=== PATIENT | female | born 1990 | race American Indian/Alaskan Native ===

== ENCOUNTER 2022-06-02 15:56 | Outpatient (REF) | payer OTHER, SELFPAY ==
[2022-06-03 03:26] LABS: CT PCR NOT DETECTED (Not Detect.); NG PCR NOT DETECTED (Not Detect.)
[2022-06-13 09:52] LABS: HPV 16 RNA NOT DETECTED (NOT DETECTED); HPV mRNA E6/E7 rflx Detected (Not Detected)
== END 2022-06-02 15:57 | disposition home or self-care (01) ==
LOC: HO.LAB 15:56
PROVIDERS: Visit Provider Advanced Practice Midwife
DX: Z01.419 Encounter for gynecological examination (general) (routine) without abnormal findings (principal); Z11.3 Encounter for screening for infections with a predominantly sexual mode of transmission; Z11.51 Encounter for screening for human papillomavirus (HPV)
CPT/HCPCS: 87491; 87591; 87624; 87625; 88142

== ENCOUNTER 2022-06-22 10:38 | Outpatient (REF) | payer OTHER, SELFPAY ==
[2022-06-22 13:51] LABS: MANUAL DIFF FLAG NO
[2022-06-22 13:55] LABS: Basophils Absolute Auto 0.1 X10*3/uL (0.0-0.2); Basophils Percent Auto 0.7 % (0-2); Eosinophils Absolute Auto 0.1 X10*3/uL (0.0-0.4); Eosinophils Percent Auto 1.3 % (0-4); Hematocrit 41.7 % (37.0-47.0); Hemoglobin 13.8 g/dl (12.0-16.0); Imm Gran Abs Auto 0.05 X10*3/uL (0.00-0.03); Imm Gran Pct Auto 0.6 % (0.0-0.4); Lymphocytes Absolute Auto 3.4 X10*3/uL (1.2-4.9); Lymphocytes Percent Auto 38.2 % (20-40); Mean Corpuscular HGB Conc 33.1 g/dl (31.0-35.0); Mean Corpuscular Hemoglobin 29.1 pg (27.0-33.0); Mean Corpuscular Volume 87.8 fL (80.0-98.0); Mean Platelet Volume 10.8 fL (9.4-12.3); Monocytes Absolute Auto 0.7 X10*3/uL (0.1-1.2); Monocytes Percent Auto 7.6 % (2-11); Neutrophils Absolute Auto 4.5 x10*3/uL (2.0-8.3); Neutrophils Percent Auto 51.6 % (45-73); Platelet Count 360 X10*3/uL (160-400); Red Blood Count 4.75 X10*6/uL (4.20-5.50); Red Cell Distribution Width 13.2 % (11.0-16.0); White Blood Count 8.8 X10*3/uL (4.8-10.8)
[2022-06-22 14:09] LABS: Alanine Aminotransferase 22 U/L (0-31); Albumin Level 4.3 g/dL (3.5-5.0); Alkaline Phosphatase 69 U/L (39-117); Amylase 45 U/L (28-100); Anion Gap 15 (12-20); Aspartate Amino Transferase 17 U/L (5-31); Bilirubin Total 0.2 mg/dL (0.0-1.0); Blood Urea Nitrogen 11 mg/dL (9-16); Calcium 9.6 mg/dL (8.4-10.2); Carbon Dioxide 25 mmol/L (22-29); Chloride 105 mmol/L (96-108); Estimated Glomerular Filt Rate > 60; Glucose Random 92 mg/dL (60-115); Lipase 31 U/L (8-78); Potassium 4.4 mmol/L (3.3-5.1); Sodium 141 mmol/L (135-145); Total Protein 7.3 g/dL (6.5-8.0)
[2022-06-22 14:30] LABS: Thyroid Stimulating Hormone 2.29 uIU/mL (0.32-4.0)
== END 2022-06-22 10:39 | disposition home or self-care (01) ==
LOC: HO.WFDLDS 10:38
PROVIDERS: Visit Provider Physician Assistant
DX: K52.9 Noninfective gastroenteritis and colitis, unspecified (principal); K86.89 Other specified diseases of pancreas; K59.09 Other constipation
CPT/HCPCS: 36415; 80053; 82150; 83690; 84443; 85025

== ENCOUNTER 2022-07-05 08:17 | Outpatient (REF) | payer OTHER, SELFPAY ==
[2022-07-05 12:37] LABS: Influenza A PCR NEGATIVE (Negative); Influenza B PCR NEGATIVE (Negative); Resp Syncy Virus RNA Qual PCR NEGATIVE (Negative); SARS COV2 PCR INHOUSE POSITIVE (Negative)
== END 2022-07-05 08:18 | disposition home or self-care (01) ==
LOC: HO.LAB 08:17
PROVIDERS: Visit Provider Hospitalist
DX: Z20.822 Contact with and (suspected) exposure to COVID-19 (principal); R09.89 Other specified symptoms and signs involving the circulatory and respiratory systems
CPT/HCPCS: 0241U

== ENCOUNTER 2022-07-18 14:04 | Outpatient (REF) | payer OTHER, SELFPAY | END 2022-07-18 14:05 | disposition home or self-care (01) | LOC: HO.LNP 14:04 | PROVIDERS: PCP Physician Assistant; Visit Provider Obstetrics & Gynecology | DX: Z32.02 Encounter for pregnancy test, result negative (principal); R87.610 Atypical squamous cells of undetermined significance on cytologic smear of cervix (ASC-US); R87.810 Cervical high risk human papillomavirus (HPV) DNA test positive | CPT/HCPCS: 57454; 81025; 88305 ==

== ENCOUNTER 2022-07-25 15:22 | Outpatient (REF) | payer OTHER, SELFPAY ==
--- NOTE | ~2022-07-25 | US_ITS ---
EXAMINATION: US PELVIS CLINICAL INFORMATION: Pelvic and perineal pain. COMPARISON: None. TECHNIQUE: Ultrasound of the pelvis is performed using both transabdominal and transvaginal transducers along with Doppler. Transvaginal imaging is performed due to inadequate visualization transabdominally. FINDINGS: UTERUS: The uterus is anteverted, anteflexed and measures 7.6 cm in length, 3.2 cm in AP and 4.7 cm in transverse dimension. The double wall endometrial thickness is 0.5 cm. The uterus is smooth in contour and has normal myometrial echogenicity. There is a hypoechoic lesion in the anterior fundus measuring 2.3 x 1.8 x 2.1 cm mildly displacing the endometrium. There is a small amount of free fluid in the cervical canal ADNEXA: Both ovaries are visualized. There is normal color flow to the adnexa. There is no ovarian torsion. There is no pelvic ascites or fluid collection. Right ovary measures 3.2 x 2.4 x 2.5 cm and volume 9.8 mL. There is an anechoic cyst measuring 1.4 x 1.4 x 1.2 cm. Left ovary measures 1.3 x 1.0 x 1.10. Question hemorrhagic cyst versus endometrioma. US/US pelvic and transvaginal IMPRESSION: Small uterine fibroid measuring 2.3 cm. Right ovarian simple cyst. Left ovarian complex cyst, question hemorrhagic cyst versus endometrioma.
== END 2022-07-25 15:23 | disposition home or self-care (01) ==
LOC: HO.US 15:22
PROVIDERS: Visit Provider Advanced Practice Midwife
DX: R10.2 Pelvic and perineal pain (principal)
CPT/HCPCS: 76830; 76856

== ENCOUNTER 2022-07-29 11:27 | Outpatient (REF) | payer OTHER, SELFPAY ==
--- NOTE | 2022-07-29 16:46 | PFT_ITS ---
Forced vital capacity 101%, FEV1 97%, FEV1/FVC ratio is 80. EMP16-76 90% and MVV 99%. Post bronchodilator therapy, there is no change. Total lung capacity 93%. Residual volume 65%. Diffusion capacity 117% CONCLUSION: Normal pulmonary function test, and there is no evidence of obstructive or restrictive pulmonary disorder. MD MELISSA Perry/SHADY / [id number]
== END 2022-07-29 11:28 | disposition home or self-care (01) ==
LOC: HO.RESP 11:27
PROVIDERS: PCP Physician Assistant; Visit Provider Internal Medicine Pulmonary Disease
DX: U09.9 Post COVID-19 condition, unspecified (principal)
CPT/HCPCS: 94060; 94727; 94729

== ENCOUNTER 2022-08-09 11:10 | Outpatient (REF) | payer OTHER, SELFPAY ==
[2022-08-11 12:16] LABS: CA-125 24 U/mL (<35)
== END 2022-08-09 11:11 | disposition home or self-care (01) ==
LOC: HO.WFDLDS 11:10
PROVIDERS: Visit Provider Advanced Practice Midwife
DX: N83.299 Other ovarian cyst, unspecified side (principal)
CPT/HCPCS: 36415; 86304

== ENCOUNTER 2022-08-10 15:16 | Outpatient (REF) | payer OTHER, SELFPAY ==
[2022-08-12 14:17] LABS: H Pylori Breath Test Negative (Negative)
== END 2022-08-10 15:17 | disposition home or self-care (01) ==
LOC: HO.LNP 15:16
PROVIDERS: Visit Provider Physician Assistant
DX: A04.8 Other specified bacterial intestinal infections (principal)
CPT/HCPCS: 83013

== ENCOUNTER 2022-08-18 08:07 | Outpatient (REF) | payer OTHER, SELFPAY ==
[2022-08-25 20:41] LABS: Calprotectin, Fecal 6 mcg/g
== END 2022-08-18 08:08 | disposition home or self-care (01) ==
LOC: HO.WFDLNP 08:07
PROVIDERS: Visit Provider Internal Medicine
DX: R19.8 Other specified symptoms and signs involving the digestive system and abdomen (principal)
CPT/HCPCS: 83993

== ENCOUNTER 2022-08-24 07:41 | Outpatient (REF) | payer OTHER, SELFPAY ==
[2022-08-24 12:03] LABS: Hemoglobin 13.1 g/dl (12.0-16.0); Mean Corpuscular HGB Conc 32.8 g/dl (31.0-35.0); Mean Corpuscular Volume 88.5 fL (80.0-98.0); Mean Platelet Volume 10.5 fL (9.4-12.3); Platelet Count 358 X10*3/uL (160-400); Red Blood Count 4.52 X10*6/uL (4.20-5.50); Red Cell Distribution Width 13.5 % (11.0-16.0); White Blood Count 7.7 X10*3/uL (4.8-10.8)
[2022-08-24 12:29] LABS: Amylase 51 U/L (28-100)
[2022-08-24 12:39] LABS: Estimated Average Glucose 111 mg/dL; Hemoglobin A1c % 5.5 %
[2022-08-24 12:44] LABS: TSH reflex Free T4 1.48 uIU/mL (0.32-4.0)
[2022-08-24 12:45] LABS: Ferritin 66 ng/mL (10-122); Vitamin D 25-OH Total 24.3 ng/mL (>30)
[2022-08-24 12:53] LABS: Alanine Aminotransferase 23 U/L (0-31); Alkaline Phosphatase 57 U/L (39-117); Anion Gap 16 (12-20); Aspartate Amino Transferase 15 U/L (5-31); Bilirubin Total < 0.2 mg/dL (0.0-1.0); Blood Urea Nitrogen 14 mg/dL (9-16); C Reactive Protein 0.72 mg/dL (< or = 0.50); Calcium 9.5 mg/dL (8.4-10.2); Carbon Dioxide 22 mmol/L (22-29); Chloride 107 mmol/L (96-108); Cholesterol 161 mg/dL; Estimated Glomerular Filt Rate > 60; Glucose Fasting 97 mg/dL (60-99); HDL Cholesterol 48 mg/dL; LDL Cholesterol Calculated 90 mg/dl; Lipase 33 U/L (8-78); Potassium 4.4 mmol/L (3.3-5.1); Sodium 141 mmol/L (135-145); Total Protein 6.7 g/dL (6.5-8.0); Triglycerides 119 mg/dL
[2022-08-24 13:05] LABS: Folate 14.9 ng/mL (> or = 4.0); Vitamin B12 356 pg/mL (200-900)
[2022-08-25 10:01] LABS: HBc Num1 0.07 S/CO (0.00-0.79); HBsAGNum1 0.19 S/CO (0.00-0.99); Hepatitis B Core Antibody Nonreactive (Nonreactive); Hepatitis B Surface Antigen Negative (Negative); ~HepC Num1 0.16 S/CO (0.00-0.79); ~Hepatitis B Surface Antibody REACTIVE (Nonreactive); ~Hepatitis C Antibody Nonreactive (Nonreactive)
[2022-08-25 17:17] LABS: Lyme Abs Screen <0.90 index
[2022-08-25 18:01] LABS: Transglutaminase IgA <1.0 U/mL
[2022-08-26 07:33] LABS: Hepatitis A Antibody IgG REACTIVE (Nonreactive); ~Hepatitis A Antibody IgG 2.91 S/CO (0.00-0.99)
[2022-08-26 14:32] LABS: Immunoglobulin A 326 mg/dL (47-310)
== END 2022-08-24 07:42 | disposition home or self-care (01) ==
LOC: HO.WFDLDS 07:41
PROVIDERS: Physician Assistant; Visit Provider Internal Medicine
DX: Z13.29 Encounter for screening for other suspected endocrine disorder (principal); R19.8 Other specified symptoms and signs involving the digestive system and abdomen; R19.7 Diarrhea, unspecified; K86.81 Exocrine pancreatic insufficiency; A69.23 Arthritis due to Lyme disease; E66.9 Obesity, unspecified
CPT/HCPCS: 36415; 80053; 80061; 82150; 82306; 82607; 82728; 82746; 82784; 83036; 83690; 84443; 85027; 86140; 86364; 86617; 86618; 86704; 86706; 86708; 86803; 87340

== ENCOUNTER 2022-09-21 16:23 | Outpatient (REF) | payer OTHER, SELFPAY ==
--- NOTE | ~2022-09-21 | US_ITS ---
EXAMINATION: US PELVIS CLINICAL INFORMATION: Left-sided ovarian cyst. COMPARISON: 07/25/2022 TECHNIQUE: Ultrasound of the pelvis is performed using both transabdominal and transvaginal transducers along with Doppler. Transvaginal imaging is performed due to inadequate visualization transabdominally. FINDINGS: Uterus: The uterus is anteverted and measures 10.1 x 4.0 x 4.7 cm. The double wall endometrial thickness is IUD in place. Approximately 4 mm in diameter endometrial thickness. There is a small amount of fluid seen within the cervix. The uterus is smooth in contour and has normal myometrial echogenicity. There is a heterogeneous hyperechoic 2.9 x 1.9 x 2.1 cm mass about the anterior fundus and upper uterine segment. This displaces the endometrium in a submucosal location. Adnexa: Both ovaries are visualized. There is normal color flow to the adnexa. There is no ovarian torsion. There is no pelvic ascites or fluid collection. Right ovary measures 1.7 x 1.7 x 1.9 cm. Volume of 2.9 mL. No abnormal adnexal mass. Left ovary measures 3.8 x 2.7 x 2.9 cm. Volume of 15.6 mL. There is again noted to be a 2.2 x 1.7 x 2.4 cm cyst which has some regions of increased echogenicity but no internal vascular flow. There is increased through sound transmission. This is more cystic in appearance than on prior study of 07/25/2022 where it measured approximately 1.3 x 1.0 x 1.1 cm in size and likely represented a hemorrhagic cyst. US/US pelvic and transvaginal IMPRESSION: No significant change in anterior fundal/upper uterine segment fibroid. IUD in place. Left ovarian mildly complex cyst likely representing resolving hemorrhagic cyst.
== END 2022-09-21 16:24 | disposition home or self-care (01) ==
LOC: HO.US 16:23
PROVIDERS: Visit Provider Advanced Practice Midwife
DX: N83.292 Other ovarian cyst, left side (principal)
CPT/HCPCS: 76830; 76856

== ENCOUNTER → 2022-09-29 12:44 | Outpatient (REF) | payer OTHER, SELFPAY | LOC: HO.SL 12:44 | PROVIDERS: PCP Physician Assistant; Visit Provider Nurse Practitioner Family | DX: Z30.432 Encounter for removal of intrauterine contraceptive device (principal); G47.19 Other hypersomnia; R06.83 Snoring; R53.83 Other fatigue | CPT/HCPCS: 58301; 95806 ==

== ENCOUNTER 2022-10-07 08:51 | Outpatient (REF) | payer OTHER, SELFPAY ==
[2022-10-11 09:48] LABS: CA-125 18 U/mL (<35)
== END 2022-10-07 08:52 | disposition home or self-care (01) ==
LOC: HO.WFDLDS 08:51
PROVIDERS: Visit Provider Advanced Practice Midwife
DX: N83.299 Other ovarian cyst, unspecified side (principal); N83.292 Other ovarian cyst, left side
CPT/HCPCS: 36415; 86304

== ENCOUNTER → 2022-10-19 07:55 | Outpatient (BNVA) | payer OTHER, SELFPAY | PROVIDERS: PCP Physician Assistant; Referring Provider Physician Assistant; Visit Provider Internal Medicine | DX: E66.01 Morbid (severe) obesity due to excess calories (principal) ==

== ENCOUNTER 2022-10-27 11:03 | Outpatient (REF) | payer OTHER, SELFPAY ==
[2022-10-27 13:58] LABS: MANUAL DIFF FLAG NO
[2022-10-27 14:06] LABS: Basophils Absolute Auto 0.1 X10*3/uL (0.0-0.2); Basophils Percent Auto 0.8 % (0-2); Eosinophils Absolute Auto 0.1 X10*3/uL (0.0-0.4); Eosinophils Percent Auto 1.1 % (0-4); Hematocrit 43.6 % (37.0-47.0); Hemoglobin 14.9 g/dl (12.0-16.0); Imm Gran Abs Auto 0.03 X10*3/uL (0.00-0.03); Imm Gran Pct Auto 0.3 % (0.0-0.4); Lymphocytes Absolute Auto 3.1 X10*3/uL (1.2-4.9); Lymphocytes Percent Auto 32.4 % (20-40); Mean Corpuscular HGB Conc 34.2 g/dl (31.0-35.0); Mean Corpuscular Hemoglobin 29.9 pg (27.0-33.0); Mean Corpuscular Volume 87.4 fL (80.0-98.0); Mean Platelet Volume 10.7 fL (9.4-12.3); Monocytes Absolute Auto 0.6 X10*3/uL (0.1-1.2); Neutrophils Absolute Auto 5.7 x10*3/uL (2.0-8.3); Neutrophils Percent Auto 59.4 % (45-73); Platelet Count 316 X10*3/uL (160-400); Red Blood Count 4.99 X10*6/uL (4.20-5.50); Red Cell Distribution Width 12.7 % (11.0-16.0); White Blood Count 9.5 X10*3/uL (4.8-10.8)
[2022-10-27 14:25] LABS: Alanine Aminotransferase 24 U/L (0-31); Albumin Level 4.5 g/dL (3.5-5.0); Alkaline Phosphatase 61 U/L (39-117); Anion Gap 14 (12-20); Aspartate Amino Transferase 16 U/L (5-31); Bilirubin Total 0.4 mg/dL (0.0-1.0); Blood Urea Nitrogen 10 mg/dL (9-16); Calcium 9.6 mg/dL (8.4-10.2); Carbon Dioxide 24 mmol/L (22-29); Chloride 104 mmol/L (96-108); Estimated Glomerular Filt Rate > 60; Glucose Random 126 mg/dL (60-115); Potassium 3.9 mmol/L (3.3-5.1); Sodium 138 mmol/L (135-145); Total Protein 7.4 g/dL (6.5-8.0)
[2022-10-27 14:39] LABS: Troponin-I High Sensitivity < 3.5 ng/L (<3.5-17.0)
[2022-10-27 14:45] LABS: TSH reflex Free T4 1.56 uIU/mL (0.32-4.0)
== END 2022-10-27 11:04 | disposition home or self-care (01) ==
LOC: HO.WFDLDS 11:03
PROVIDERS: Visit Provider Family Medicine
DX: Z00.00 Encounter for general adult medical examination without abnormal findings (principal); R07.89 Other chest pain; R00.2 Palpitations
CPT/HCPCS: 36415; 80053; 84443; 84484; 85025

== ENCOUNTER 2022-10-27 11:07 | Outpatient (REF) | payer OTHER, SELFPAY ==
--- NOTE | ~2022-10-27 | XR_ITS ---
EXAMINATION: XR CHEST CLINICAL INFORMATION: Chest pain COMPARISON: None TECHNIQUE: 2 views of the chest were obtained. FINDINGS: No significant abnormality is noted involving the heart, lungs, mediastinum, bony thorax or soft tissues. XR/XR chest 2V IMPRESSION: No acute disease.
[2022-10-27 14:57] LABS: Influenza A PCR NEGATIVE (Negative); Influenza B PCR NEGATIVE (Negative); Resp Syncy Virus RNA Qual PCR NEGATIVE (Negative); SARS COV2 PCR INHOUSE NEGATIVE (Negative)
== END 2022-10-27 11:08 | disposition home or self-care (01) ==
LOC: HO.LAB 11:07
PROVIDERS: PCP Family Medicine; Visit Provider Family Medicine
DX: Z20.822 Contact with and (suspected) exposure to COVID-19 (principal); R07.89 Other chest pain; R09.89 Other specified symptoms and signs involving the circulatory and respiratory systems
CPT/HCPCS: 0241U; 71046

== ENCOUNTER 2022-11-03 15:20 | Outpatient (REF) | payer OTHER, SELFPAY ==
--- NOTE | ~2022-11-03 | US_ITS ---
EXAMINATION: US PELVIS CLINICAL INFORMATION: History of left-sided ovarian cyst. LMP about 2 days ago, currently with menstrual bleeding. COMPARISON: Pelvic ultrasound 09/21/2022. TECHNIQUE: Ultrasound of the pelvis is performed using both transabdominal and transvaginal transducers along with Doppler. Transvaginal imaging is performed due to inadequate visualization transabdominally. FINDINGS: The uterus is anteverted and anteflexed measuring 10.6 x 3.9 x 4 cm. There is a 2.5 x 2.3 x 2.2 cm partially submucosal upper uterine lesion, previously measuring 2.9 x 1.9 x 2.1 cm and a 0.7 x 0.5 x 0.7 cm intramural lesion in the left mid to lower uterine body, not definitely identified on the most recent prior ultrasound. The endometrium measures 0.5 cm in thickness without discrete focal abnormality. The right ovary measures 2.5 x 1.5 x 1.7 cm, 3 mL. Normal in morphology with no lesions. The left ovary is only visualized transabdominally measuring approximately 2.8 x 1.5 x 3.4 cm, 7.5 mL. A discrete ovarian lesion is not identified. There is preserved color-flow to both ovaries at the moment of this examination. No free fluid. US/US pelvic and transvaginal IMPRESSION: 1. Uterine lesions are statistically favored to represent fibroids. 2. No discrete ovarian lesion with the caveat that evaluation of the left ovary is limited as this was only able to be identified on transabdominal images. 3. No discrete endometrial abnormality. 4. No free fluid.
== END 2022-11-03 15:21 | disposition home or self-care (01) ==
LOC: HO.US 15:20
PROVIDERS: PCP Family Medicine; Visit Provider Advanced Practice Midwife
DX: N83.292 Other ovarian cyst, left side (principal)
CPT/HCPCS: 76830; 76856

== ENCOUNTER → 2022-11-10 08:23 | Outpatient (BNVA) | payer OTHER, SELFPAY | PROVIDERS: PCP Physician Assistant; Visit Provider Advanced Practice Midwife | DX: Z13.89 Encounter for screening for other disorder (principal) ==

== ENCOUNTER → 2022-11-18 13:50 | Outpatient (REF) | payer OTHER, SELFPAY ==
--- NOTE | 2022-11-18 13:55 | HM_ITS ---
Conclusion: 1. Patient was monitored for total period of 2 days 2. Baseline rhythm is normal sinus rhythm with average heart of 77 beats per minute 3. No significant pauses or bradycardia noted 4. Rare PACs noted 5. Patient reported 4 symptoms that correlated with sinus rhythm MTDD
== END ==
LOC: HO.CARD 13:50
PROVIDERS: PCP Physician Assistant; Visit Provider Family Medicine
DX: R00.2 Palpitations (principal)
CPT/HCPCS: 93225

== ENCOUNTER 2022-11-30 07:22 | Outpatient (REF) | payer OTHER, SELFPAY ==
[2022-11-30 08:20] LABS: HCG Quantitative 127 mIU/mL
== END 2022-11-30 07:23 | disposition home or self-care (01) ==
LOC: HO.LAB 07:22
PROVIDERS: PCP Physician Assistant; Visit Provider Obstetrics & Gynecology
DX: Z34.90 Encounter for supervision of normal pregnancy, unspecified, unspecified trimester (principal)
CPT/HCPCS: 36415; 84702

== ENCOUNTER 2022-12-02 06:58 | Outpatient (REF) | payer OTHER, SELFPAY ==
[2022-12-02 08:16] LABS: HCG Quantitative 251 mIU/mL
== END 2022-12-02 06:59 | disposition home or self-care (01) ==
LOC: HO.LAB 06:58
PROVIDERS: PCP Physician Assistant; Visit Provider Obstetrics & Gynecology
DX: Z34.90 Encounter for supervision of normal pregnancy, unspecified, unspecified trimester (principal)
CPT/HCPCS: 36415; 84702

== ENCOUNTER 2022-12-05 07:20 | Outpatient (REF) | payer OTHER, SELFPAY ==
[2022-12-05 08:30] LABS: HCG Quantitative 995 mIU/mL
== END 2022-12-05 07:21 | disposition home or self-care (01) ==
LOC: HO.LAB 07:20
PROVIDERS: PCP Physician Assistant; Visit Provider Obstetrics & Gynecology
DX: Z34.90 Encounter for supervision of normal pregnancy, unspecified, unspecified trimester (principal)
CPT/HCPCS: 36415; 84702

== ENCOUNTER 2022-12-07 07:07 | Outpatient (REF) | payer OTHER, SELFPAY ==
[2022-12-07 08:08] LABS: HCG Quantitative 2239 mIU/mL
== END 2022-12-07 07:08 | disposition home or self-care (01) ==
LOC: HO.LAB 07:07
PROVIDERS: PCP Physician Assistant; Visit Provider Obstetrics & Gynecology
DX: Z34.90 Encounter for supervision of normal pregnancy, unspecified, unspecified trimester (principal)
CPT/HCPCS: 36415; 84702

== ENCOUNTER → 2022-12-08 15:24 | Outpatient (BNVA) | payer OTHER, SELFPAY | PROVIDERS: PCP Physician Assistant; Visit Provider Nurse Practitioner Family | DX: G43.909 Migraine, unspecified, not intractable, without status migrainosus (principal) ==

== ENCOUNTER 2022-12-09 07:03 | Outpatient (REF) | payer OTHER, SELFPAY ==
--- NOTE | ~2022-12-09 | US_ITS ---
EXAMINATION: US OBSTETRICAL ULTRASOUND CLINICAL INFORMATION: ; for size and dates. COMPARISON: Pelvic ultrasound dated 11/03/2022. LMP: 11/01/2022. Gestational age by maternal dates is 5 weeks and 3 days. Estimated date of delivery by maternal dates is 08/08/2023. TECHNIQUE: Ultrasound of the maternal pelvis is performed using transabdominal and transvaginal transducers. Transvaginal imaging is performed due to inadequate visualization transabdominally. M-mode Doppler is also performed. FINDINGS: There is a single intrauterine gestational sac with visible yolk sac, and no embryo/fetus or cardiac activity. There is no significant subchorionic hemorrhage or hematoma. Mean Sac Diameter: 0.58 cm (5 weeks and 1 day +/- 4 days). MATERNAL ADNEXA: The right maternal ovary measures 2.9 x 1.5 x 1.8 cm. The left maternal ovary measures 4.5 x 2.5 x 2.4 cm. The left ovary contains a 1.9 cm in maximal diameter corpus luteum cyst. There is no significant maternal adnexal mass. No maternal pelvic ascites. There are uterine fibroids, the largest measuring 2.7 x 2.4 x 2.7 cm. US/US OB pelvic and transvaginal IMPRESSION: 1. Single intrauterine gestation with ultrasound gestational age based upon mean sac diameter of 5 weeks and 1 day +/- 4 days. Recommend short-term follow-up obstetrical ultrasound for pole assessment and more accurate dating. 2. No subchorionic hemorrhage is seen. 3. No maternal adnexal mass or pelvic ascites. 4. There is uterine fibroid disease.
[2022-12-09 08:04] LABS: HCG Quantitative 4078 mIU/mL
== END 2022-12-09 07:04 | disposition home or self-care (01) ==
LOC: HO.HMGCX 07:03
PROVIDERS: PCP Physician Assistant; Visit Provider Obstetrics & Gynecology
DX: Z34.91 Encounter for supervision of normal pregnancy, unspecified, first trimester (principal); Z3A.01 Less than 8 weeks gestation of pregnancy
CPT/HCPCS: 36415; 76801; 76817; 84702

== ENCOUNTER → 2022-12-13 07:57 | Outpatient (BNVA) | payer OTHER, SELFPAY | PROVIDERS: PCP Physician Assistant; Visit Provider Obstetrics & Gynecology | DX: Z13.89 Encounter for screening for other disorder (principal) ==

== ENCOUNTER 2022-12-23 09:11 | Outpatient (REF) | payer OTHER, SELFPAY ==
--- NOTE | ~2022-12-23 | US_ITS ---
EXAMINATION: US OBSTETRICAL ULTRASOUND CLINICAL INFORMATION: Encounter for supervision of normal . COMPARISON: 12/09/2022. LMP: 11/01/2022. Gestational age by maternal dates is 7 weeks 3 days. Estimated date of delivery by maternal dates is 08/08/2023. TECHNIQUE: Both transabdominal and endovaginal scanning was performed. FINDINGS: There is a single intrauterine gestational sac with visible yolk sac, embryo/fetus, and cardiac activity. There is no significant subchorionic hemorrhage or hematoma. At the time of the prior 12/09/2022 study, no pole could be seen. HR: 146 beats per minute. CRL (crown-rump length): 0.78 cm (6 weeks 5 days +/- 4 days). TAYLOR (estimated date of delivery): 08/13/2023 +/- 4 days. Incidental note made of a uterine fibroid measuring 2.5 x 3.1 x 2.3 cm seen previously. MATERNAL ADNEXA: The right maternal ovary was not visualized. The left maternal ovary measures 3.0 x 1.8 x 3.3 cm. There is no significant maternal adnexal mass. No maternal pelvic ascites. US/US OB pelvic and transvaginal IMPRESSION: 1. Single intrauterine gestation with ultrasound gestational age of 6 weeks 5 days +/- 4 days. 2. Estimated date of delivery is 08/13/2023 +/- 4 days. 3. Incidental note made of at least one uterine fibroid.
== END 2022-12-23 09:12 | disposition home or self-care (01) ==
LOC: HO.US 09:11
PROVIDERS: PCP Physician Assistant; Visit Provider Obstetrics & Gynecology
DX: Z34.91 Encounter for supervision of normal pregnancy, unspecified, first trimester (principal); Z3A.01 Less than 8 weeks gestation of pregnancy
CPT/HCPCS: 76801; 76817

== ENCOUNTER → 2022-12-29 07:59 | Outpatient (BNVA) | payer OTHER, SELFPAY | PROVIDERS: PCP Physician Assistant; Visit Provider Obstetrics & Gynecology | DX: Z13.89 Encounter for screening for other disorder (principal) ==

== ENCOUNTER 2023-01-18 15:47 | Outpatient (REF) | payer OTHER, SELFPAY ==
[2023-01-18 16:18] LABS: MANUAL DIFF FLAG NO
[2023-01-18 17:08] LABS: Basophils Absolute Auto 0.1 X10*3/uL (0.0-0.2); Basophils Percent Auto 0.6 % (0-2); Eosinophils Absolute Auto 0.1 X10*3/uL (0.0-0.4); Eosinophils Percent Auto 1.2 % (0-4); Hematocrit 37.5 % (37.0-47.0); Hemoglobin 12.6 g/dl (12.0-16.0); Imm Gran Abs Auto 0.05 X10*3/uL (0.00-0.03); Imm Gran Pct Auto 0.5 % (0.0-0.4); Lymphocytes Absolute Auto 2.8 X10*3/uL (1.2-4.9); Lymphocytes Percent Auto 26.8 % (20-40); Mean Corpuscular HGB Conc 33.6 g/dl (31.0-35.0); Mean Corpuscular Hemoglobin 29.9 pg (27.0-33.0); Mean Corpuscular Volume 89.1 fL (80.0-98.0); Monocytes Absolute Auto 1.1 X10*3/uL (0.1-1.2); Monocytes Percent Auto 10.2 % (2-11); Neutrophils Absolute Auto 6.3 x10*3/uL (2.0-8.3); Neutrophils Percent Auto 60.7 % (45-73); Platelet Count 309 X10*3/uL (160-400); Red Blood Count 4.21 X10*6/uL (4.20-5.50); Red Cell Distribution Width 13.2 % (11.0-16.0); White Blood Count 10.4 X10*3/uL (4.8-10.8)
[2023-01-18 17:12] LABS: Estimated Average Glucose 103 mg/dL; Hemoglobin A1c % 5.2 %
[2023-01-18 17:37] LABS: Alanine Aminotransferase 23 U/L (0-31); Aspartate Amino Transferase 15 U/L (5-31); Estimated Glomerular Filt Rate > 60
[2023-01-18 17:52] LABS: Appearance Urine Clear; Color Urine Yellow; Glucose Urine UA Negative (Negative); Leukocyte Esterase Urine Negative (Negative); Nitrite Urine Negative (Negative); PH 5.5 (5.0-9.0); Specific Gravity - Urine >= 1.030 (1.005-1.025); Urine Blood Negative (Negative); Urine Ketones Trace mg/dL (Negative); Urine Protein Negative (Neg-Trace)
[2023-01-18 18:24] LABS: Creatinine Urine 198.62 mg/dL; Protein/Creatinine Ratio, Ur 0.06 (<0.2); Total Protein Urine Random 11 mg/dL (<12)
[2023-01-20 07:57] LABS: Syphilis Screen Nonreactive (Nonreactive)
[2023-01-20 08:30] LABS: HBsAGNum1 0.29 S/CO (0.00-0.99); HIV AB/AG Nonreactive (Nonreactive); HIV Num 1 0.12 S/CO (0.00-0.99); Hepatitis B Surface Antigen Negative (Negative); ~HepC Num1 0.12 S/CO (0.00-0.79); ~Hepatitis C Antibody Nonreactive (Nonreactive)
[2023-01-20 09:48] LABS: Rubella IgG Antibody 7.82 Index
[2023-01-31 14:08] LABS: CF Ethnicity NG; Cystic Fibrosis NEGATIVE (NEGATIVE)
== END 2023-01-18 15:48 | disposition home or self-care (01) ==
LOC: HO.LAB 15:47
PROVIDERS: PCP Physician Assistant; Visit Provider Advanced Practice Midwife
DX: Z34.90 Encounter for supervision of normal pregnancy, unspecified, unspecified trimester (principal)
CPT/HCPCS: 36415; 81003; 81220; 82565; 83036; 84156; 84450; 84460; 85025; 86762; 86780; 86787; 86803; 86850; 86900; 86901; 87340; 87389

== ENCOUNTER 2023-03-03 09:00 | Outpatient (REF) | payer OTHER, SELFPAY ==
[2023-03-03 10:26] LABS: Appearance Urine Clear; Color Urine Yellow; Glucose Urine UA Negative (Negative); Leukocyte Esterase Urine Trace (Negative); Nitrite Urine Negative (Negative); Specific Gravity - Urine 1.015 (1.005-1.025); UMIC TRIGGER UACC YES; Urine Blood Negative (Negative); Urine Ketones Negative (Negative); Urine Protein Negative (Neg-Trace)
[2023-03-03 10:29] LABS: Bacteria Urine Trace (None Seen); Hyaline Casts Urine 0-2 /LPF (0-2); RBC Urine 0-2 /HPF (0-2); Squamous Epithelial Cell Urine 0-2 /HPF (0-2); WBC Urine 0-5 /HPF (0-5)
== END 2023-03-03 09:01 | disposition home or self-care (01) ==
LOC: HO.LAB 09:00
PROVIDERS: PCP Physician Assistant; Visit Provider Student in an Organized Health Care Education/Training Program
DX: O26.899 Other specified pregnancy related conditions, unspecified trimester (principal); R82.90 Unspecified abnormal findings in urine
CPT/HCPCS: 81001; 87086

== ENCOUNTER → 2023-04-06 07:57 | Outpatient (BNVA) | payer OTHER, SELFPAY | PROVIDERS: PCP Physician Assistant; Visit Provider Nurse Practitioner Family | DX: G43.909 Migraine, unspecified, not intractable, without status migrainosus (principal) ==

== ENCOUNTER 2023-06-06 15:31 | Outpatient (AMB) | payer OTHER, SELFPAY ==
[2023-06-06 15:34] VITALS: BP 140/88; PULSE 84; O2SAT 99
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
== END 2023-06-06 16:03 | disposition home or self-care (01) ==
PROVIDERS: PCP Physician Assistant; Visit Provider Physician Assistant
DX: I10 Essential (primary) hypertension (principal); O24.414 Gestational diabetes mellitus in pregnancy, insulin controlled; F41.1 Generalized anxiety disorder
CPT/HCPCS: 99213

== ENCOUNTER 2023-08-23 07:56 | Outpatient (AMB) | payer OTHER, SELFPAY ==
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
[2023-08-23 08:05] VITALS: BP 112/78; PULSE 76; O2SAT 99
== END 2023-08-23 08:36 | disposition home or self-care (01) ==
PROVIDERS: PCP Physician Assistant; Visit Provider Nurse Practitioner Family
DX: G43.109 Migraine with aura, not intractable, without status migrainosus (principal); R51.9 Headache, unspecified; Z39.2 Encounter for routine postpartum follow-up
CPT/HCPCS: 99214

== ENCOUNTER → 2023-08-23 07:56 | Outpatient (BNVA) | payer OTHER, SELFPAY | PROVIDERS: PCP Physician Assistant; Visit Provider Nurse Practitioner Family | DX: G43.909 Migraine, unspecified, not intractable, without status migrainosus (principal); B36.0 Pityriasis versicolor ==

== ENCOUNTER 2023-09-07 08:33 | Outpatient (AMB) | payer OTHER, SELFPAY ==
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
[2023-09-07 08:39] VITALS: BP 140/80; PULSE 76; O2SAT 98; BMI 50.2
== END 2023-09-07 09:08 | disposition home or self-care (01) ==
PROVIDERS: PCP Physician Assistant; Visit Provider Physician Assistant
DX: O24.414 Gestational diabetes mellitus in pregnancy, insulin controlled (principal); I10 Essential (primary) hypertension; E66.01 Morbid (severe) obesity due to excess calories; Z68.42 Body mass index [BMI] 45.0-49.9, adult
CPT/HCPCS: 99214

== ENCOUNTER 2023-09-13 07:26 | Outpatient (REF) | payer OTHER, SELFPAY ==
[2023-09-15 08:53] LABS: HPV mRNA E6/E7 rflx Not Detected (Not Detected)
== END 2023-09-13 07:27 | disposition home or self-care (01) ==
LOC: HO.LNP 07:26
PROVIDERS: PCP Physician Assistant; Visit Provider Obstetrics & Gynecology
DX: Z01.419 Encounter for gynecological examination (general) (routine) without abnormal findings (principal); Z11.51 Encounter for screening for human papillomavirus (HPV)
CPT/HCPCS: 87624; 88142

== ENCOUNTER 2023-09-13 07:26 | Outpatient (AMB) | payer OTHER, SELFPAY ==
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
[2023-09-13 07:30] VITALS: BP 124/82; BMI 49.9
== END 2023-09-13 08:46 | disposition home or self-care (01) ==
LOC: HO.HWS 07:26
PROVIDERS: PCP Physician Assistant; Visit Provider Obstetrics & Gynecology
DX: Z01.419 Encounter for gynecological examination (general) (routine) without abnormal findings (principal)
CPT/HCPCS: 99395

== ENCOUNTER 2023-10-26 09:58 | Outpatient (AMB) | payer OTHER, SELFPAY ==
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
== END 2023-10-26 12:43 | disposition home or self-care (01) ==
LOC: HO.HWS 09:58
PROVIDERS: PCP Physician Assistant; Visit Provider Obstetrics & Gynecology
DX: N93.9 Abnormal uterine and vaginal bleeding, unspecified (principal)
CPT/HCPCS: 99213

== ENCOUNTER → 2023-10-26 09:58 | Outpatient (BNVA) | payer OTHER, SELFPAY | PROVIDERS: PCP Physician Assistant; Visit Provider Obstetrics & Gynecology ==

== ENCOUNTER 2023-10-31 08:08 | Outpatient (REF) | payer OTHER, SELFPAY ==
[2023-10-31 09:17] LABS: Hematocrit 39.7 % (37.0-47.0); Hemoglobin 12.7 g/dl (12.0-16.0); Mean Corpuscular Hemoglobin 27.7 pg (27.0-33.0); Mean Corpuscular Volume 86.7 fL (80.0-98.0); Mean Platelet Volume 10.2 fL (9.4-12.3); Platelet Count 340 X10*3/uL (160-400); Red Blood Count 4.58 X10*6/uL (4.20-5.50); Red Cell Distribution Width 14.2 % (11.0-16.0); White Blood Count 8.9 X10*3/uL (4.8-10.8)
[2023-10-31 10:11] LABS: HCG Quantitative < 2 mIU/mL; TSH reflex Free T4 2.28 uIU/mL (0.32-4.0)
== END 2023-10-31 08:09 | disposition home or self-care (01) ==
LOC: HO.LAB 08:08
PROVIDERS: Absent Provider Obstetrics & Gynecology; PCP Physician Assistant; Visit Provider Physician Assistant
DX: N93.9 Abnormal uterine and vaginal bleeding, unspecified (principal)
CPT/HCPCS: 36415; 84443; 84702; 85027

== ENCOUNTER 2023-11-02 06:53 | Outpatient (REF) | payer OTHER, SELFPAY ==
[2023-11-02 07:46] LABS: Estimated Average Glucose 103 mg/dL; Hemoglobin A1c % 5.2 % (<6.0)
[2023-11-02 07:58] LABS: Microalbum/Creatinine Ratio Ur 19.4 ug/mg cr (<30)
[2023-11-02 08:00] LABS: Alanine Aminotransferase 28 U/L (0-31); Albumin Level 4.1 g/dL (3.5-5.0); Alkaline Phosphatase 66 U/L (39-117); Anion Gap 12 (12-20); Aspartate Amino Transferase 17 U/L (5-31); Bilirubin Total 0.2 mg/dL (0.0-1.0); Blood Urea Nitrogen 11 mg/dL (9-16); Calcium 9.4 mg/dL (8.4-10.2); Carbon Dioxide 24 mmol/L (22-29); Chloride 107 mmol/L (96-108); Estimated Glomerular Filt Rate > 60; Glucose Fasting 106 mg/dL (60-99); Sodium 139 mmol/L (135-145); Total Protein 7.2 g/dL (6.5-8.0)
== END 2023-11-02 06:54 | disposition home or self-care (01) ==
LOC: HO.LAB 06:53
PROVIDERS: PCP Physician Assistant; Visit Provider Physician Assistant
DX: O24.414 Gestational diabetes mellitus in pregnancy, insulin controlled (principal); O16.9 Unspecified maternal hypertension, unspecified trimester; Z13.1 Encounter for screening for diabetes mellitus; Z13.29 Encounter for screening for other suspected endocrine disorder
CPT/HCPCS: 36415; 80053; 82043; 82570; 83036

== ENCOUNTER 2023-11-07 08:41 | Outpatient (AMB) | payer OTHER, SELFPAY ==
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
[2023-11-07 08:45] VITALS: BP 124/72; PULSE 75; O2SAT 98; BMI 50.4
== END 2023-11-07 09:19 | disposition home or self-care (01) ==
PROVIDERS: PCP Physician Assistant; Visit Provider Physician Assistant
DX: I10 Essential (primary) hypertension (principal); E66.01 Morbid (severe) obesity due to excess calories; Z68.43 Body mass index [BMI] 50.0-59.9, adult; R80.9 Proteinuria, unspecified; O24.414 Gestational diabetes mellitus in pregnancy, insulin controlled; K21.9 Gastro-esophageal reflux disease without esophagitis; G43.109 Migraine with aura, not intractable, without status migrainosus
CPT/HCPCS: 99214

== ENCOUNTER 2023-11-14 15:40 | Outpatient (REF) | payer OTHER, SELFPAY ==
--- NOTE | ~2023-11-14 | US_ITS ---
EXAMINATION: US PELVIS COMPLETE CLINICAL INFORMATION: Abnormal uterine and vaginal bleeding; the last menstrual period was one month prior. COMPARISON: Pelvic ultrasound dated 11/03/2022. TECHNIQUE: Transabdominal and transvaginal imaging were performed. FINDINGS: The uterus is of normal size and echogenicity measuring 13.2 x 4.1 x 4.1 cm. The uterus is anteverted and anteflexed. A regular, homogeneous endometrium is identified measuring 0.7 cm. There is a small amount nonspecific free fluid in the endocervical canal. FIBROIDS: There are 2 fibroids seen. 1. Location: Upper rightward body, myometrial. Size: 2.4 x 2.8 x 1.6 cm. Prior: 2.5 x 2.3 x 2.2 cm. Fibroid characteristics: Heterogeneously hyperechoic, with shadowing. 2. Location: . Size: 0.5 x 0.5 x 0.4 cm. Prior: 0.7 x 0.5 x 0.7 cm. Fibroid characteristics: Hypoechoic. Both ovaries are nonvisualized. There is no pelvic free fluid. No adnexal mass is seen. US/US pelvic and transvaginal IMPRESSION: 1. There are uterine fibroids, as detailed. 2. The ovaries are nonvisualized.
== END 2023-11-14 15:41 | disposition home or self-care (01) ==
LOC: HO.US 15:40
PROVIDERS: PCP Physician Assistant; Visit Provider Obstetrics & Gynecology
DX: N93.9 Abnormal uterine and vaginal bleeding, unspecified (principal)
CPT/HCPCS: 76830; 76856

== ENCOUNTER 2023-11-30 11:21 | Outpatient (AMB) | payer OTHER, SELFPAY ==
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
[2023-11-30 11:39] VITALS: BP 126/82; PULSE 72; O2SAT 97; BMI 50.3
== END 2023-11-30 12:21 | disposition home or self-care (01) ==
PROVIDERS: PCP Physician Assistant; Visit Provider Nurse Practitioner Family
DX: R51.9 Headache, unspecified (principal); G43.109 Migraine with aura, not intractable, without status migrainosus
CPT/HCPCS: 99214

== ENCOUNTER → 2023-11-30 11:21 | Outpatient (BNVA) | payer OTHER, SELFPAY | PROVIDERS: PCP Physician Assistant; Visit Provider Nurse Practitioner Family ==

== ENCOUNTER 2023-12-04 12:06 | Outpatient (AMB) | payer OTHER, SELFPAY ==
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
== END 2023-12-04 15:03 | disposition home or self-care (01) ==
LOC: HO.HWS 12:06
PROVIDERS: PCP Physician Assistant; Visit Provider Obstetrics & Gynecology
DX: N93.9 Abnormal uterine and vaginal bleeding, unspecified (principal); D25.9 Leiomyoma of uterus, unspecified
CPT/HCPCS: 99213

== ENCOUNTER → 2023-12-04 12:06 | Outpatient (BNVA) | payer OTHER, SELFPAY | PROVIDERS: PCP Physician Assistant; Visit Provider Obstetrics & Gynecology ==

== ENCOUNTER 2023-12-21 15:28 | Outpatient (REF) | payer OTHER, SELFPAY ==
[2023-12-22 03:18] LABS: CT PCR NOT DETECTED (Not Detect.); NG PCR NOT DETECTED (Not Detect.)
== END 2023-12-21 15:29 | disposition home or self-care (01) ==
LOC: HO.LNP 15:28
PROVIDERS: PCP Physician Assistant; Visit Provider Obstetrics & Gynecology
DX: Z30.430 Encounter for insertion of intrauterine contraceptive device (principal); N93.9 Abnormal uterine and vaginal bleeding, unspecified; Z20.2 Contact with and (suspected) exposure to infections with a predominantly sexual mode of transmission
CPT/HCPCS: 0353U; 58100; 58300; 81025; 88305; J7298

== ENCOUNTER 2023-12-21 15:28 | Outpatient (AMB) | payer OTHER, SELFPAY ==
[2023-12-21 15:55] VITALS: BP 128/78; BMI 50.3
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
== END 2023-12-21 16:15 | disposition home or self-care (01) ==
LOC: HO.HWS 15:30
PROVIDERS: PCP Physician Assistant; Visit Provider Obstetrics & Gynecology
DX: Z30.430 Encounter for insertion of intrauterine contraceptive device (principal); N93.9 Abnormal uterine and vaginal bleeding, unspecified; Z32.02 Encounter for pregnancy test, result negative
CPT/HCPCS: 58100; 58300

== ENCOUNTER 2024-01-08 10:38 | Outpatient (AMB) | payer OTHER, SELFPAY ==
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
[2024-01-08 10:48] VITALS: BP 120/82; BMI 49.9
== END 2024-01-08 12:11 | disposition home or self-care (01) ==
LOC: HO.HWS 10:38
PROVIDERS: PCP Physician Assistant; Visit Provider Obstetrics & Gynecology
DX: N93.9 Abnormal uterine and vaginal bleeding, unspecified (principal)
CPT/HCPCS: 99213

== ENCOUNTER → 2024-01-08 10:38 | Outpatient (BNVA) | payer OTHER, SELFPAY | PROVIDERS: PCP Physician Assistant; Visit Provider Obstetrics & Gynecology ==

== ENCOUNTER 2024-01-19 08:56 | Day surgery (SDC) | payer OTHER, SELFPAY ==
[2024-01-17 10:05] VITALS: BMI 49.9
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
[2024-01-19] VITALS (8 sets, daily range): BP systolic 112–140; BP diastolic 70–92; PULSE 80–109; RESP 16–20; TEMP 36.1–37.2; O2SAT 93–98; BMI 51.8
--- NOTE | 2024-01-19 09:22 | MHC.SHP ---
Pre-Procedural Eval Section A - 24 Hr Update-Section A only Date of Service: 01/19/24 The patient is an INPATIENT: No Changes since office visit: No Cold of Flu in the past 2 weeks, No New Medical Problems, No Changes in Medication and No Patient answered all questions The patient has been examined within 24 hours of the surgical procedure. The History & Physical has been completed within 30 days and I have reviewed it.: Yes Section B - Complete if H&P > 30 days Chief Complaint: Abnormal uterine and vaginal bleeding, Allergies: Allergies Allergy/AdvReac Type Severity Reaction Status Date / Time oxycodone Allergy Severe Anaphylaxis Verified 01/08/24 10:49 amitriptyline Allergy Unknown Confusion Verified 01/08/24 10:49 and night terrors. codeine Allergy Unknown vomiting, Verified 01/08/24 10:49 itchying duloxetine Allergy Unknown paresthesia Verified 01/08/24 10:49 and tardive diskinesia topiramate Allergy Unknown chest Verified 01/08/24 10:49 pain, palpitations, confusion, tinnitus. nortriptyline AdvReac Mild hallucinations, Verified 01/08/24 10:49 joint stiffness, confusion Plan Diagnosis/Plan: Unchanged I have reviewed the history and physical and performed a pertinent physical examination on my patient. No changes have occurred unless specified. Time Spent With Patient Time: Total time managing care of this patient today ____ minutes.
[2024-01-19 09:33] LABS: UPreg QC Valid YES; Urine Pregnancy NEGATIVE (NEGATIVE)
[2024-01-19] MEDS: Lactated Ringers 1,000 ML 100 ML IVCONT (09:50)
[2024-01-19] MEDS: Metoclopramide HCl 10 MG/2 ML VIAL IVPUSH (10:17)
--- NOTE | 2024-01-19 10:58 | P.BOP_ITS ---
Brief Operative Note Date of Service: 01/19/24 Pre-op diagnosis: Abnormal uterine bleeding, endometrial polyp on EMB pathology Post-op diagnosis: same Procedure: Hysteroscopy D&C, Polypectomy, IUD removal and Mirena IUD insertion Surgeon: Porfirio Méndez MD Anesthesia: GLMA Was an Betting Agency Manager used for this Procedure?: No Estimated blood loss (mL): 0 Pathology: other (Endometrial Scrapping. Polyp) Condition: stable Disposition: PACU
--- NOTE | 2024-01-19 10:59 | W.PM.OPN ---
Operative Note Operative Note Date of Service: 01/19/24 Narrative: Preop Diagnosis: Abnormal uterine bleeding, Endometrial polyp on EMB pathology Operation: Diagnostic Hysteroscopy, Dilataion & Curettage and polypectomy, IUD removal, and Mirena IUD reinsertion Post Op Diagnosis: Endometrial Polyp QBL: Minimal Anesthesia: GLMA Surgeon: Porfirio Méndez MD Snack Foods Mixer Operator: None Complication: None Pathology: Endometrial Scrapings, Endometrial polyp Procedure: The patient was put in the dorsal lithotomy position, scrubbed, and draped in the usual manner. A sterile speculum was inserted in the patient's vagina. Using a long [place] clamp the IUD string was grasped and the IUD was pulled out without any complication. The anterior lip of the cervix was then grasped with a single tooth tenaculum. The cervix was dilated up to 5 mm, then the scope was inserted in the patient's uterus. Inspection revealed endometrial polyp. The Myosure Reach device was used; it was introduced through the operative channel and polypectomy done with no complications. The scope was then taken out from the uterine cavity, sharp curettings was carried on with minimal to moderate amount of tissues retrieved. A sound was advanced through the external and internal os until it reached the fundus of the uterus, the depth was 10 cm. The sound was then withdrawn. The IUD was loaded and advanced into position. The string was visualized and cut to 3 cm At the end of the procedure, all instruments were taken out of the patient uterine and vaginal cavity. The single tooth tenaculum was removed and homeostasis was assured using pressure. The patient tolerated the procedure well and was transferred to the PACU in a stable condition.
[2024-01-19] MEDS: fentaNYL citrate/PF 100 MCG/2 ML VIAL 25 MCG IVPUSH ×2 (11:10→11:15)
[2024-01-19] MEDS: Albuterol Sulfate (0.083%) 2.5 MG/3 ML VIAL.NEB INHALE (11:20)
== END 2024-01-19 12:10 | disposition home or self-care (01) ==
PROVIDERS: PCP Physician Assistant; Visit Provider Obstetrics & Gynecology
PROC: 0UDB8ZZ Extraction of Endometrium, Via Natural or Artificial Opening Endoscopic (ICD-10-PCS; CPT 58558; principal; 2024-01-19 11:00)
DX: N93.9 Abnormal uterine and vaginal bleeding, unspecified (principal); N84.0 Polyp of corpus uteri; Z30.433 Encounter for removal and reinsertion of intrauterine contraceptive device; N87.0 Mild cervical dysplasia; N80.109 Endometriosis of ovary, unspecified side, unspecified depth; J45.990 Exercise induced bronchospasm; I10 Essential (primary) hypertension; Z88.5 Allergy status to narcotic agent; Z88.8 Allergy status to other drugs, medicaments and biological substances; Z98.890 Other specified postprocedural states; Z90.49 Acquired absence of other specified parts of digestive tract; F41.9 Anxiety disorder, unspecified; Z62.810 Personal history of physical and sexual abuse in childhood; Z79.899 Other long term (current) drug therapy
CPT/HCPCS: 58558; 58301; 58300; 81025; 88300; 88305; J1885; J2405; J2704; J2765; J3010; J7298

== ENCOUNTER → 2024-01-19 08:56 | Outpatient (BNV) | payer OTHER, SELFPAY | PROVIDERS: PCP Physician Assistant; Visit Provider Obstetrics & Gynecology | DX: N84.1 Polyp of cervix uteri (principal); N93.9 Abnormal uterine and vaginal bleeding, unspecified; Z30.433 Encounter for removal and reinsertion of intrauterine contraceptive device | CPT/HCPCS: 58300; 58301; 58558 ==

== ENCOUNTER 2024-01-29 10:24 | Outpatient (AMB) | payer OTHER, SELFPAY ==
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
[2024-01-29 10:26] VITALS: BP 130/88; PULSE 92; TEMP 36.7; O2SAT 97; BMI 51.2
== END 2024-01-29 11:16 | disposition home or self-care (01) ==
PROVIDERS: PCP Physician Assistant; Visit Provider Registered Nurse Emergency
DX: J06.9 Acute upper respiratory infection, unspecified (principal)
CPT/HCPCS: 99213

== ENCOUNTER 2024-01-29 14:29 | Outpatient (AMB) | payer OTHER, SELFPAY ==
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
== END 2024-01-29 15:30 | disposition home or self-care (01) ==
LOC: HO.HWS 14:29
PROVIDERS: PCP Physician Assistant; Visit Provider Obstetrics & Gynecology
DX: N93.9 Abnormal uterine and vaginal bleeding, unspecified (principal); D21.9 Benign neoplasm of connective and other soft tissue, unspecified
CPT/HCPCS: 99211

== ENCOUNTER → 2024-01-29 14:29 | Outpatient (BNVA) | payer OTHER, SELFPAY | PROVIDERS: PCP Physician Assistant; Visit Provider Obstetrics & Gynecology ==

== ENCOUNTER 2024-01-30 03:34 | Emergency (ER) | payer OTHER, SELFPAY ==
--- NOTE | ~2024-01-30 | XR_ITS ---
EXAMINATION: XR CHEST CLINICAL INFORMATION: Cough. Concern for pneumonia. COMPARISON: 10/27/2022. TECHNIQUE: Frontal view of the chest was obtained. FINDINGS: No significant abnormality is noted involving the heart, lungs, mediastinum, bony thorax or soft tissues. XR/XR chest 1V IMPRESSION: Unremarkable examination.
--- NOTE | 2024-01-30 03:36 | ECG_ITS ---
Test Reason : CHEST PAIN Blood Pressure : / mmHG Vent. Rate : 098 BPM Atrial Rate : 098 BPM P-R Int : 180 ms QRS Dur : 084 ms QT Int : 376 ms P-R-T Axes : 040 -09 018 degrees QTc Int : 480 ms Normal sinus rhythm with sinus arrhythmia Minimal voltage criteria for LVH, may be normal variant ( R in aVL ) Prolonged QT Abnormal ECG No previous ECGs available Referred By: Generic ED Physician Electronically Signed By:Brennan Pugh
[2024-01-30 03:42] VITALS: BMI 51.5
[2024-01-30 04:00] VITALS: BP 149/82; PULSE 107; RESP 18; TEMP 36.6; O2SAT 96
[2024-01-30 04:01] VITALS: PULSE 107
[2024-01-30 04:15] LABS: Basophils Absolute Auto 0.1 X10*3/uL (0.0-0.2); Basophils Percent Auto 0.5 % (0-2); Eosinophils Absolute Auto 0.1 X10*3/uL (0.0-0.4); Eosinophils Percent Auto 0.8 % (0-4); Hematocrit 40.6 % (37.0-47.0); Hemoglobin 13.5 g/dl (12.0-16.0); Imm Gran Abs Auto 0.07 X10*3/uL (0.00-0.03); Imm Gran Pct Auto 0.4 % (0.0-0.4); Lymphocytes Absolute Auto 1.8 X10*3/uL (1.2-4.9); MANUAL DIFF FLAG SCAN; Mean Corpuscular HGB Conc 33.3 g/dl (31.0-35.0); Mean Corpuscular Volume 84.2 fL (80.0-98.0); Mean Platelet Volume 10.6 fL (9.4-12.3); Monocytes Absolute Auto 1.3 X10*3/uL (0.1-1.2); Monocytes Percent Auto 7.5 % (2-11); Neutrophils Absolute Auto 13.3 x10*3/uL (2.0-8.3); Neutrophils Percent Auto 79.8 % (45-73); PLT CLUMP 1; Red Blood Count 4.82 X10*6/uL (4.20-5.50); Red Cell Distribution Width 13.4 % (11.0-16.0); SCAN SMEAR FLAG 1
[2024-01-30 04:20] LABS: Anion Gap 13 (12-20); Blood Urea Nitrogen 7 mg/dL (9-16); Calcium 9.3 mg/dL (8.4-10.2); Carbon Dioxide 26 mmol/L (22-29); Chloride 105 mmol/L (96-108); Creatinine Clr Calc Pharmacy 131.8; Estimated Glomerular Filt Rate > 60; Glucose Random 123 mg/dL (60-115); Lipase 20 U/L (8-78); Sodium 140 mmol/L (135-145)
[2024-01-30 04:29] LABS: Troponin-I High Sensitivity < 2.7 ng/L (<3.5-17.0)
[2024-01-30 04:32] LABS: Platelet Count 269 X10*3/uL (160-400); White Blood Count 16.7 X10*3/uL (4.8-10.8)
[2024-01-30 04:33] LABS: SLIDE REVIEW VERIFIED
[2024-01-30 04:43] LABS: Influenza A PCR NEGATIVE (Negative); Influenza B PCR NEGATIVE (Negative); Resp Syncy Virus RNA Qual PCR NEGATIVE (Negative); SARS COV2 PCR INHOUSE NEGATIVE (Negative)
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
[2024-01-30 06:35] VITALS: BP 132/73; PULSE 97; RESP 15; TEMP 36.5; O2SAT 97
[2024-01-30] MEDS: predniSONE 10 MG TABLET 50 MG PO (07:33)
[2024-01-30] MEDS: ondansetron HCL 4 MG/2 ML VIAL IVPUSH (07:34)
[2024-01-30 07:37] VITALS: BP 155/86; PULSE 102; RESP 18; TEMP 36.6; O2SAT 95
[2024-01-30 07:42] VITALS: BP 155/86; PULSE 100; RESP 17; TEMP 36.6; O2SAT 96
== END 2024-01-30 07:45 | disposition home or self-care (01) ==
PROVIDERS: Emergency Provider Emergency Medicine; PCP Physician Assistant
DX: J20.8 Acute bronchitis due to other specified organisms (principal); I49.9 Cardiac arrhythmia, unspecified; R07.89 Other chest pain; R05.9 Cough, unspecified; Z11.52 Encounter for screening for COVID-19; Z20.822 Contact with and (suspected) exposure to COVID-19; Z79.899 Other long term (current) drug therapy
CPT/HCPCS: 0241U; 36415; 71045; 80048; 83690; 84484; 85025; 93005; 96374; 99284; 99285; J2405

== ENCOUNTER → 2024-01-30 03:36 | Outpatient (BNV) | payer OTHER, SELFPAY | PROVIDERS: Emergency Provider Emergency Medicine; PCP Physician Assistant; Visit Provider Internal Medicine Cardiovascular Disease | DX: R94.31 Abnormal electrocardiogram [ECG] [EKG] (principal) | CPT/HCPCS: 93010 ==

== ENCOUNTER 2024-02-01 10:36 | Outpatient (AMB) | payer OTHER, SELFPAY ==
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
[2024-02-01 10:41] VITALS: BP 134/78; PULSE 96; TEMP 36.7; O2SAT 98; BMI 51.2
== END 2024-02-01 11:07 | disposition home or self-care (01) ==
PROVIDERS: PCP Physician Assistant; Visit Provider Nurse Practitioner Family
DX: H10.9 Unspecified conjunctivitis (principal); B96.89 Other specified bacterial agents as the cause of diseases classified elsewhere; J01.90 Acute sinusitis, unspecified
CPT/HCPCS: 99213

== ENCOUNTER 2024-02-07 15:25 | Outpatient (AMB) | payer OTHER, SELFPAY ==
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
[2024-02-07 15:46] VITALS: BP 128/82; PULSE 96; O2SAT 98
== END 2024-02-07 16:20 | disposition home or self-care (01) ==
PROVIDERS: PCP Physician Assistant; Visit Provider Physician Assistant
DX: I10 Essential (primary) hypertension (principal); K21.9 Gastro-esophageal reflux disease without esophagitis; G43.109 Migraine with aura, not intractable, without status migrainosus; R94.31 Abnormal electrocardiogram [ECG] [EKG]; D72.829 Elevated white blood cell count, unspecified
CPT/HCPCS: 99214

== ENCOUNTER → 2024-02-14 10:20 | Outpatient (REF) | payer OTHER, SELFPAY ==
[2024-02-14 11:48] LABS: Hematocrit 40.8 % (37.0-47.0); Hemoglobin 13.2 g/dl (12.0-16.0); Mean Corpuscular HGB Conc 32.4 g/dl (31.0-35.0); Mean Corpuscular Hemoglobin 27.7 pg (27.0-33.0); Mean Corpuscular Volume 85.7 fL (80.0-98.0); Mean Platelet Volume 10.2 fL (9.4-12.3); Platelet Count 362 X10*3/uL (160-400); Red Blood Count 4.76 X10*6/uL (4.20-5.50); White Blood Count 9.6 X10*3/uL (4.8-10.8)
[2024-02-14 12:18] LABS: Creatinine Urine 282.85 mg/dL; Microalbum/Creatinine Ratio Ur 26.5 ug/mg cr (<30)
--- NOTE | 2024-02-14 14:47 | ECG_ITS ---
Test Reason : ABNORMAL EKG Blood Pressure : / mmHG Vent. Rate : 099 BPM Atrial Rate : 099 BPM P-R Int : 168 ms QRS Dur : 082 ms QT Int : 366 ms P-R-T Axes : 042 -03 027 degrees QTc Int : 469 ms Normal sinus rhythm Minimal voltage criteria for LVH, may be normal variant ( R in aVL ) Borderline ECG When compared with ECG of 30-JAN-2024 03:52, No significant change was found Referred By: Maciej Curran Electronically Signed By:JESE MCKEON MD
== END ==
LOC: HO.CARD 10:20
PROVIDERS: PCP Physician Assistant; Visit Provider Physician Assistant
DX: R94.31 Abnormal electrocardiogram [ECG] [EKG] (principal); D72.829 Elevated white blood cell count, unspecified; R80.9 Proteinuria, unspecified; I10 Essential (primary) hypertension
CPT/HCPCS: 36415; 82043; 82570; 85027; 93005

== ENCOUNTER → 2024-02-14 14:47 | Outpatient (BNV) | payer OTHER, SELFPAY | PROVIDERS: PCP Physician Assistant; Visit Provider Internal Medicine Cardiovascular Disease | DX: R94.31 Abnormal electrocardiogram [ECG] [EKG] (principal) | CPT/HCPCS: 93010 ==

== ENCOUNTER 2024-02-22 15:36 | Outpatient (AMB) | payer OTHER, SELFPAY ==
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
[2024-02-22 15:46] VITALS: BP 132/80
== END 2024-02-22 16:10 | disposition home or self-care (01) ==
PROVIDERS: PCP Physician Assistant; Visit Provider Obstetrics & Gynecology
DX: Z30.431 Encounter for routine checking of intrauterine contraceptive device (principal)
CPT/HCPCS: 99213

== ENCOUNTER → 2024-02-22 15:36 | Outpatient (BNVA) | payer OTHER, SELFPAY | PROVIDERS: PCP Physician Assistant; Visit Provider Obstetrics & Gynecology ==

== ENCOUNTER 2024-03-20 15:24 | Outpatient (REF) | payer OTHER, SELFPAY ==
[2024-03-20 15:40] LABS: MANUAL DIFF FLAG NO
[2024-03-20 16:13] LABS: Basophils Absolute Auto 0.1 X10*3/uL (0.0-0.2); Basophils Percent Auto 0.7 % (0-2); Eosinophils Absolute Auto 0.1 X10*3/uL (0.0-0.4); Eosinophils Percent Auto 1.4 % (0-4); Hemoglobin 13.1 g/dl (12.0-16.0); Imm Gran Abs Auto 0.04 X10*3/uL (0.00-0.03); Imm Gran Pct Auto 0.4 % (0.0-0.4); Lymphocytes Percent Auto 40.2 % (20-40); Mean Corpuscular HGB Conc 32.8 g/dl (31.0-35.0); Mean Corpuscular Hemoglobin 27.9 pg (27.0-33.0); Mean Corpuscular Volume 85.3 fL (80.0-98.0); Monocytes Absolute Auto 0.8 X10*3/uL (0.1-1.2); Monocytes Percent Auto 8.2 % (2-11); Neutrophils Absolute Auto 4.9 x10*3/uL (2.0-8.3); Neutrophils Percent Auto 49.1 % (45-73); Platelet Count 337 X10*3/uL (160-400); Red Blood Count 4.69 X10*6/uL (4.20-5.50); Red Cell Distribution Width 14.4 % (11.0-16.0)
[2024-03-20 17:09] LABS: Erythrocyte Sedimentation Rate 16 MM/HR (0-20)
[2024-03-22 06:19] LABS: Lyme Abs Screen <0.90 index
[2024-03-22 17:53] LABS: A. Phagocytphilium DNA,RT-PCR NOT DETECTED (NOT DETECTED); Babesia Microti DNA, RT-PCR NOT DETECTED (NOT DETECTED); Borrelia Miyamotoi,DNA RT-PCR NOT DETECTED (NOT DETECTED); E.Chaffeensis DNA RT-PCR NOT DETECTED (NOT DETECTED); Lyme(Borrelia ssp)DNA RT-PCR NOT DETECTED (NOT DETECTED)
== END 2024-03-20 15:25 | disposition home or self-care (01) ==
LOC: HO.LAB 15:24
PROVIDERS: PCP Physician Assistant; Visit Provider Physician Assistant
DX: A69.23 Arthritis due to Lyme disease (principal); R51.9 Headache, unspecified
CPT/HCPCS: 36415; 85025; 85652; 86617; 86618; 87468; 87469; 87478; 87484; 87798

== ENCOUNTER 2024-04-02 08:10 | Outpatient (AMB) | payer OTHER, SELFPAY ==
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
== END 2024-04-02 09:00 ==
PROVIDERS: PCP Physician Assistant; Visit Provider Nurse Practitioner Family
DX: G43.109 Migraine with aura, not intractable, without status migrainosus (principal); R51.9 Headache, unspecified; R11.0 Nausea
CPT/HCPCS: 99214

== ENCOUNTER → 2024-04-02 08:10 | Outpatient (BNVA) | payer OTHER, SELFPAY | PROVIDERS: PCP Physician Assistant; Visit Provider Nurse Practitioner Family ==

== ENCOUNTER 2024-04-18 11:04 | Outpatient (REF) | payer OTHER, SELFPAY ==
[2024-04-18 12:49] LABS: Appearance Urine Clear; Color Urine Dark Yellow; Glucose Urine UA Negative (Negative); Leukocyte Esterase Urine Negative (Negative); Nitrite Urine Negative (Negative); Urine Blood Negative (Negative); Urine Ketones Negative (Negative); Urine Protein Negative (Neg-Trace)
== END 2024-04-18 11:05 | disposition home or self-care (01) ==
LOC: HO.LAB 11:04
PROVIDERS: PCP Physician Assistant; Visit Provider Physician Assistant
DX: R30.0 Dysuria (principal)
CPT/HCPCS: 81003

== ENCOUNTER 2024-05-07 06:44 | Outpatient (REF) | payer OTHER, SELFPAY ==
[2024-05-07 10:46] LABS: Alanine Aminotransferase 23 U/L (0-31); Albumin Level 3.9 g/dL (3.5-5.0); Alkaline Phosphatase 71 U/L (39-117); Anion Gap 15 (12-20); Aspartate Amino Transferase 17 U/L (5-31); Bilirubin Total 0.2 mg/dL (0.0-1.0); Blood Urea Nitrogen 13 mg/dL (9-16); Calcium 9.2 mg/dL (8.4-10.2); Carbon Dioxide 24 mmol/L (22-29); Chloride 105 mmol/L (96-108); Estimated Glomerular Filt Rate > 60; Glucose Fasting 109 mg/dL (60-99); Sodium 140 mmol/L (135-145); Total Protein 6.8 g/dL (6.5-8.0)
== END 2024-05-07 06:45 | disposition home or self-care (01) ==
LOC: HO.HMGCLDS 06:44
PROVIDERS: PCP Physician Assistant; Visit Provider Physician Assistant
DX: I10 Essential (primary) hypertension (principal)
CPT/HCPCS: 36415; 80053

== ENCOUNTER 2024-05-08 13:49 | Outpatient (AMB) | payer OTHER, SELFPAY ==
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
[2024-05-08 13:56] VITALS: BP 136/70; PULSE 114; O2SAT 98; BMI 52.6
== END 2024-05-08 14:35 | disposition home or self-care (01) ==
PROVIDERS: PCP Physician Assistant; Visit Provider Physician Assistant
DX: I10 Essential (primary) hypertension (principal); G43.109 Migraine with aura, not intractable, without status migrainosus; R53.83 Other fatigue
CPT/HCPCS: 99214

== ENCOUNTER 2024-05-08 16:08 | Outpatient (REF) | payer OTHER, SELFPAY ==
[2024-05-08 17:30] LABS: Hematocrit 39.4 % (37.0-47.0); Hemoglobin 12.9 g/dl (12.0-16.0); Mean Corpuscular HGB Conc 32.7 g/dl (31.0-35.0); Mean Corpuscular Volume 82.6 fL (80.0-98.0); Mean Platelet Volume 10.1 fL (9.4-12.3); Platelet Count 352 X10*3/uL (160-400); Red Blood Count 4.77 X10*6/uL (4.20-5.50); Red Cell Distribution Width 14.4 % (11.0-16.0); White Blood Count 9.5 X10*3/uL (4.8-10.8)
[2024-05-08 18:07] LABS: Monotest Negative (Negative)
[2024-05-08 18:14] LABS: Alanine Aminotransferase 26 U/L (0-31); Albumin Level 4.4 g/dL (3.5-5.0); Alkaline Phosphatase 81 U/L (39-117); Anion Gap 19 (12-20); Aspartate Amino Transferase 21 U/L (5-31); Bilirubin Total 0.2 mg/dL (0.0-1.0); Blood Urea Nitrogen 11 mg/dL (9-16); Calcium 9.6 mg/dL (8.4-10.2); Carbon Dioxide 21 mmol/L (22-29); Chloride 105 mmol/L (96-108); Estimated Glomerular Filt Rate > 60; Glucose Fasting 109 mg/dL (60-99); Magnesium 2.1 mg/dL (1.6-2.6); Potassium 3.7 mmol/L (3.3-5.1); Sodium 141 mmol/L (135-145); Total Protein 8.1 g/dL (6.5-8.0)
[2024-05-08 18:26] LABS: Vitamin D 25-OH Total 34.5 ng/mL (>30)
[2024-05-08 18:41] LABS: Folate 13.4 ng/mL (> or = 4.0); Vitamin B12 488 pg/mL (200-900)
[2024-05-09 10:59] LABS: Complement C3 170 mg/dL (83-193)
[2024-05-14 18:19] LABS: Vitamin A 70 mcg/dL (38-98)
[2024-05-14 20:23] LABS: Alpha-Tocopherol 14.5 mg/L (5.7-19.9); Beta-Gamma Tocopherol 2.6 mg/L (<=4.3)
[2024-05-16 11:03] LABS: Anti Nuclear Antibody Screen NEGATIVE (NEGATIVE)
[2024-05-16 14:38] LABS: DNAds, Crithidia Antibody Negative (Negative)
== END 2024-05-08 16:09 | disposition home or self-care (01) ==
LOC: HO.LAB 16:08
PROVIDERS: PCP Physician Assistant; Visit Provider Physician Assistant
DX: R53.83 Other fatigue (principal); I10 Essential (primary) hypertension; E53.8 Deficiency of other specified B group vitamins
CPT/HCPCS: 36415; 80053; 82306; 82607; 82746; 83735; 84446; 84590; 85027; 86038; 86160; 86255; 86308

== ENCOUNTER 2024-05-23 15:55 | Outpatient (REF) | payer OTHER, SELFPAY ==
--- NOTE | ~2024-05-23 | US_ITS ---
EXAMINATION: US PELVIS CLINICAL INFORMATION: Leiomyoma of uterus, unknown last menstrual period. COMPARISON: 11/14/2023 TECHNIQUE: Ultrasound of the pelvis is performed using both transabdominal and transvaginal transducers along with Doppler. Transvaginal imaging is performed due to inadequate visualization transabdominally. Limited visualization due to bowel gas and body habitus. FINDINGS: Uterus is anteverted and measures 10.7 x 4.4 x 4.2 cm. IUD placement/location difficult to evaluate as visualization substantially limited due to body habitus. Previously identified uterine fibroids not visualized. Right ovary measures 2.7 x 1.8 x 1.8 cm, volume 4.6 mL. Left ovary measures 2.4 x 1.3 x 1.3 cm, volume 2.1 mL. Please note that bilateral ovaries were seen only on very limited transabdominal ultrasound images and were not visualized on transvaginal images. No significant free fluid. Small amount of fluid in the cervix. US/US pelvic and transvaginal IMPRESSION: 1. IUD placement/location difficult to evaluate as visualization substantially limited due to body habitus. 2. Previously identified uterine fibroids not visualized. 3. Bilateral ovaries were seen only on very limited transabdominal ultrasound images were not visualized on transvaginal images. 4. Small amount of fluid in the cervix.
== END 2024-05-23 15:56 | disposition home or self-care (01) ==
LOC: HO.US 15:55
PROVIDERS: PCP Physician Assistant; Visit Provider Obstetrics & Gynecology
DX: D25.9 Leiomyoma of uterus, unspecified (principal)
CPT/HCPCS: 76830; 76856

== ENCOUNTER 2024-06-26 15:32 | Outpatient (AMB) | payer OTHER, SELFPAY ==
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
== END 2024-06-26 17:06 | disposition home or self-care (01) ==
LOC: HO.HMGH 15:32
PROVIDERS: PCP Physician Assistant; Visit Provider Physician Assistant
DX: G43.109 Migraine with aura, not intractable, without status migrainosus (principal); E16.1 Other hypoglycemia; R53.83 Other fatigue
CPT/HCPCS: 99213

== ENCOUNTER 2024-07-03 15:27 | Outpatient (REF) | payer OTHER, SELFPAY ==
--- NOTE | ~2024-07-03 | US_ITS ---
EXAMINATION: US TRIPLEX LOWER EXTREMITY, RIGHT CLINICAL INFORMATION: Swelling COMPARISON: None available. TECHNIQUE: Color-flow triplex imaging with spectral analysis and compression Doppler were performed on the right lower extremity. FINDINGS: Respiratory variation, normal compression and augmented flow are noted throughout the right lower extremity. The visualized common femoral vein, superficial femoral vein, profunda femoral vein, popliteal vein and midcalf peroneal and posterior tibial venous segments show no evidence of deep venous thrombosis. There is no Robledo's cyst. US/US venous duplex LE RT IMPRESSION: No evidence of deep venous thrombosis involving the right lower extremity. Electronically signed by: Brittny Craig MD 07/03/2024 08:45 PM EDT RP
== END 2024-07-03 15:28 | disposition home or self-care (01) ==
LOC: HO.US 15:27
PROVIDERS: PCP Physician Assistant; Visit Provider Physician Assistant
DX: M79.89 Other specified soft tissue disorders (principal)
CPT/HCPCS: 93971

== ENCOUNTER 2024-08-28 15:41 | Outpatient (REF) | payer OTHER, SELFPAY ==
[2024-08-29 05:48] LABS: CT PCR NOT DETECTED (Not Detect.); NG PCR NOT DETECTED (Not Detect.)
== END 2024-08-28 15:42 | disposition home or self-care (01) ==
LOC: HO.LNP 15:41
PROVIDERS: PCP Physician Assistant; Visit Provider Obstetrics & Gynecology
DX: Z01.419 Encounter for gynecological examination (general) (routine) without abnormal findings (principal); R10.2 Pelvic and perineal pain; Z32.02 Encounter for pregnancy test, result negative; Z87.410 Personal history of cervical dysplasia
CPT/HCPCS: 81003; 81025; 87491; 87591

== ENCOUNTER 2024-08-28 15:41 | Outpatient (AMB) | payer OTHER, SELFPAY ==
[2024-08-28 15:42] VITALS: BP 124/76; BMI 54.4
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
== END 2024-08-28 16:21 | disposition home or self-care (01) ==
LOC: HO.HWS 15:41
PROVIDERS: PCP Physician Assistant; Visit Provider Obstetrics & Gynecology
DX: Z01.419 Encounter for gynecological examination (general) (routine) without abnormal findings (principal); R10.2 Pelvic and perineal pain; Z13.9 Encounter for screening, unspecified; Z32.02 Encounter for pregnancy test, result negative
CPT/HCPCS: 99395

== ENCOUNTER 2024-08-31 08:39 | Outpatient (REF) | payer OTHER, SELFPAY ==
[2024-08-31 11:27] LABS: Hematocrit 36.7 % (37.0-47.0); Hemoglobin 11.7 g/dl (12.0-16.0); Mean Corpuscular HGB Conc 31.9 g/dl (31.0-35.0); Mean Corpuscular Hemoglobin 24.9 pg (27.0-33.0); Mean Corpuscular Volume 78.3 fL (80.0-98.0); Mean Platelet Volume 10.2 fL (9.4-12.3); Platelet Count 366 X10*3/uL (160-400); Red Blood Count 4.69 X10*6/uL (4.20-5.50); Red Cell Distribution Width 15.5 % (11.0-16.0); White Blood Count 10.1 X10*3/uL (4.8-10.8)
[2024-08-31 11:34] LABS: Estimated Average Glucose 120 mg/dL; Hemoglobin A1C 124.2533 umol/L; Hemoglobin A1c % 5.8 % (<6.0); Total Hemoglobin (HGBA1C) 3137.8979 umol/L
[2024-08-31 11:44] LABS: Alanine Aminotransferase 23 U/L (0-31); Alkaline Phosphatase 73 U/L (39-117); Anion Gap 16 (12-20); Aspartate Amino Transferase 20 U/L (5-31); Bilirubin Total 0.3 mg/dL (0.0-1.0); Blood Urea Nitrogen 12 mg/dL (9-16); Calcium 8.9 mg/dL (8.4-10.2); Carbon Dioxide 23 mmol/L (22-29); Chloride 105 mmol/L (96-108); Estimated Glomerular Filt Rate > 60; Glucose Fasting 104 mg/dL (60-99); Potassium 4.1 mmol/L (3.3-5.1); Sodium 140 mmol/L (135-145); Total Protein 7.2 g/dL (6.5-8.0)
== END 2024-08-31 08:40 | disposition home or self-care (01) ==
LOC: HO.HMGCLDS 08:39
PROVIDERS: PCP Physician Assistant; Visit Provider Physician Assistant
DX: D72.829 Elevated white blood cell count, unspecified (principal); I10 Essential (primary) hypertension; E16.1 Other hypoglycemia
CPT/HCPCS: 36415; 80053; 83036; 85027

== ENCOUNTER 2024-09-02 12:38 | Outpatient (REF) | payer OTHER, SELFPAY ==
[2024-09-02 14:37] LABS: Creatinine Urine 219.13 mg/dL; Microalbum/Creatinine Ratio Ur 12.3 ug/mg cr (<30)
== END 2024-09-02 12:39 | disposition home or self-care (01) ==
LOC: HO.LAB 12:38
PROVIDERS: PCP Physician Assistant; Visit Provider Physician Assistant
DX: I10 Essential (primary) hypertension (principal)
CPT/HCPCS: 82043; 82570

== ENCOUNTER 2024-09-05 09:19 | Outpatient (AMB) | payer OTHER, SELFPAY ==
[2024-09-05 09:22] VITALS: BP 112/6; PULSE 70; O2SAT 98
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
== END 2024-09-05 10:19 | disposition home or self-care (01) ==
PROVIDERS: PCP Physician Assistant; Visit Provider Physician Assistant
DX: M77.8 Other enthesopathies, not elsewhere classified (principal)

== ENCOUNTER → 2024-09-05 09:19 | Outpatient (BNVA) | payer OTHER, SELFPAY | PROVIDERS: PCP Physician Assistant; Visit Provider Physician Assistant | DX: M77.8 Other enthesopathies, not elsewhere classified (principal) | CPT/HCPCS: 96127 ==

== ENCOUNTER 2024-09-18 08:28 | Outpatient (AMB) | payer OTHER, SELFPAY ==
[2024-09-18 08:39] VITALS: BP 132/86; PULSE 73; O2SAT 97
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
== END 2024-09-18 08:54 | disposition home or self-care (01) ==
PROVIDERS: PCP Physician Assistant; Visit Provider Nurse Practitioner Family
DX: R05.2 Subacute cough (principal)

== ENCOUNTER 2024-10-08 15:18 | Outpatient (AMB) | payer OTHER, SELFPAY ==
[2024-10-08 15:20] VITALS: BP 142/82; PULSE 78; O2SAT 98; BMI 54.3
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
== END 2024-10-08 16:04 | disposition home or self-care (01) ==
PROVIDERS: PCP Physician Assistant; Visit Provider Physician Assistant
DX: Z00.00 Encounter for general adult medical examination without abnormal findings (principal); I10 Essential (primary) hypertension; R10.2 Pelvic and perineal pain; D50.9 Iron deficiency anemia, unspecified

== ENCOUNTER → 2024-10-08 15:18 | Outpatient (BNVA) | payer OTHER, SELFPAY | PROVIDERS: PCP Physician Assistant; Visit Provider Physician Assistant | DX: Z00.00 Encounter for general adult medical examination without abnormal findings (principal); I10 Essential (primary) hypertension; R10.2 Pelvic and perineal pain; D50.9 Iron deficiency anemia, unspecified; E66.813 Obesity, class 3; Z68.43 Body mass index [BMI] 50.0-59.9, adult; Z97.5 Presence of (intrauterine) contraceptive device | CPT/HCPCS: 96127 ==

== ENCOUNTER 2024-10-31 05:46 | Outpatient (REF) | payer OTHER, SELFPAY ==
--- NOTE | ~2024-10-31 | CT_ITS ---
CLINICAL HISTORY: R10.2 - Pelvic and perineal pain CT pelvis with contrast Comparison: None Findings: Pelvic contents unremarkable. Normal appendix. There are no perianal or perirectal masses or fluid collections. No acute fracture. IMPRESSION: No acute findings. This document has been electronically signed by: Gary Driscoll MD on 11/01/2024 08:37:28
[2024-10-31] MEDS: iohexoL 350 MG/ML 100 ML INFUS..BTL 85 ML IV (08:40)
== END 2024-10-31 05:47 | disposition home or self-care (01) ==
LOC: HO.CT 05:46
PROVIDERS: PCP Physician Assistant; Visit Provider Obstetrics & Gynecology
DX: R10.2 Pelvic and perineal pain (principal)
CPT/HCPCS: 72193; Q9967

== ENCOUNTER → 2024-10-31 05:48 | Outpatient (BNV) | payer OTHER, SELFPAY | PROVIDERS: PCP Physician Assistant; Visit Provider Specialist | DX: R10.2 Pelvic and perineal pain (principal) | CPT/HCPCS: 72193 ==

== ENCOUNTER 2024-11-13 14:42 | Outpatient (AMB) | payer OTHER, SELFPAY ==
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
--- OUTSIDE RECORDS SUMMARY | 2024-11-13 17:12 | XMS_ITS | Clinical Summary ---
Author Organization [facility] Address [address] [place] [address] Care Team Providers Care Reservoir Engineer Name Role Phone Jonny Joseph MD Primary Care Provider [phone] Allergies Active Allergy Reactions Criticality Noted Date Comments Oxycodone Unknown/Patient and Family Unable to Define Medium 06/17/2019 Medications Medication Sig Dispensed Refills Start Date End Date Status levonorgestrel (MIRENA) 20 mcg/24hr IUD 1 each by Intrauterine route once. Active cetirizine (ZyrTEC) 10 MG chewable tablet Chew 10 mg daily. Ac tive pancrelipase (CREON) [address] Particles capsuleIndication s:H/O acute pancreatitis,LUQ pain Take 1 capsule (12,000 Units total) by mouth 3 (three) times a day with meals. Dose is in units of lipase. 270 capsule 3 10/02/2019 Active Active Problems Problem Noted Date Diagnosed Date H/O acute pancreatitis 06/17/2019 Assessment & Plan (06/17/2019 9:29 AM EDT): Pt has had continued LUQ pain x 2 yrs. I will send for Ct scan to r/o pancreatic pathology Cont [place]on 47487 [place] 56764 with meal LUQ pain 06/17/2019 Assessment & Plan (06/17/2019 9:29 AM EDT): Hx pancreatitis Ct scn Screening for tuberculosis 01/22/2016 Immunizations Name Administration Dates Next Due PPD Test 01/20/2016 Family History Medical History Relation Name Comments Alcohol abuse Father Breast cancer Maternal Grandmother Relation Name Status Comments Father Maternal Grandmother Social History Tobacco Use Types Packs/Day Years Used Date Smoking Tobacco: Never Smokeless Tobacco: Never Alcohol Use Standard Drinks/Week Comments Never 0 (1 standard drink = 0.6 oz pur e alcohol) AUDIT-C Answer Date Recorded Frequency of Alcohol Consumption Never 06/17/2019 Average Number of Drinks Not on file 019 Frequency of Binge Drinking Not on file 05/24 Sex and Gender Information Value Date Recorded Sex Assigned at Not on file Gender Identity Not on file Sexual Orientation Not on file Last Filed Vital Signs Vital Sign Reading Time Taken Comments Blood Pressure 126/82 06/17/2019 8:58 AM EDT Pulse 68 01/20/2016 12:43 PM EDT Temperature - - Respiratory Rate 20 01/20/2016 12:43 PM EDT Oxygen Saturation - - Inhaled Oxygen Concentration - - Weight 125 kg (275 lb) 06/17/2019 8:58 AM EDT Height 162.6 cm (5' 4 ) 06/17/2019 8:58 AM EDT Body Mass Index 47.2 06/17/2019 8:58 AM EDT Plan of Treatment Health Maintenance Due Date Last Done Comments Hepatitis C Virus Screening 1988 HIV Screening 2001 DTaP/Tdap/Td Vaccines (1 - Tdap) 2007 Hepatitis B Vaccines (1 of 3 - 19+ 3-dose series) 2007 Pap Smear (Ages 21-65) 2009 Influenza Vaccine 05/23/2024 COVID-19 Vaccine ( - 2023-2 5 season) 2024 HPV Vaccines Aged Out No longer eligi ble based on patient's age to complete this topic Pneumococcal Vaccine: Pediat sammy (0-5 Years) and At-Risk Patients (6 to 49 Years) Aged Out No longer eligible b ased on patient's age to complete this topic Care Teams Reservoir Engineer Relationship Specialty Start Date End Date Jonny Joseph MD [address] [place] [address] PCP - General Family Medicine 06/17/19
--- OUTSIDE RECORDS SUMMARY | 2024-11-13 17:12 | XMS_ITS | Encounter Summary ---
Author Organization [facility] Address [address] [place] [address] Care Team Providers Care Due Diligence Coordinator Name Role Phone Jonny Joseph MD Primary Care Provider [phone] Reason for Visit * Reason Comments Medication Refill Encounter Details Date Type Department Care Team (Late st Contact Info) Description 06/18/2020 [address] [facility] [address] [address] Alessandra Banuelos PA [address] [place] [address] H/O acute pancreatitis; LUQ pain Social History Tobacco Use Types Packs/Day Years [...] on file Sexual Orientation Not on file documented as of this encounter Plan of Treatment Not on file documented as of this encounter Visit Diagnoses Diagnosis H/O acute pancreatitis LUQ pain Abdominal pain, left upper quadrant documented in this encounter Care Teams Due Diligence Coordinator Relationship Specialty Start Date End Date Jonny Joseph MD [address] [place], [place] [id number] PCP - General Family Medicine 06/17/19 documented as of this encounter
--- OUTSIDE RECORDS SUMMARY | 2024-11-13 17:12 | XMS_ITS | Encounter Summary ---
Author Organization [facility] Address [address] [place] [address] Care Team Providers Care Electronic Security Technician Name Role Phone Pcp, Heidi Primary Care Provider Eliza e Jonny Joseph MD Primary Care Provider [phone] Encounter Details Date Type Department Care Team (Late st Contact Info) Description 01/20/2016 Scanned Document [facility] [address] [place] [address] Provider, Generic Social History Tobacco Use Types Packs/Day Years Used Date Smoking Tobacco: Never Assessed Sex and Gender Information Value Date Recorded Sex Assigned at Not on file Gender Identity Not on file Sexual Orientation Not on file documented as of this encounter Plan of Treatment Not on file documented as of this encounter Visit Diagnoses Not on filedocumented in this encounter Care Teams Electronic Security Technician Relationship Specialty Start Date End Date Pcp, No PCP - General General Medicine 01/18/16 06/16/19 Jonny Joseph MD [address] [place] [address] PCP - General Family Medicine 06/17/19 documented as of this encounter
== END 2024-11-13 15:51 | disposition home or self-care (01) ==
LOC: HO.HGI 14:42
PROVIDERS: PCP Physician Assistant; Visit Provider Internal Medicine
DX: R19.8 Other specified symptoms and signs involving the digestive system and abdomen (principal); R10.9 Unspecified abdominal pain; R10.2 Pelvic and perineal pain
CPT/HCPCS: 99214

== ENCOUNTER → 2024-11-13 14:42 | Outpatient (BNVA) | payer OTHER, SELFPAY | PROVIDERS: PCP Physician Assistant; Visit Provider Internal Medicine ==

== ENCOUNTER → 2024-11-18 15:48 | Outpatient (AMB) | payer OTHER, SELFPAY ==
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
--- OUTSIDE RECORDS SUMMARY | 2024-11-18 19:39 | XMS_ITS | Encounter Summary ---
Author Organization [facility] Address [address] [place] [address] Care Team Providers Care Bobbin Marker Name Role Phone Pcp, Heidi Primary Care Provider Eliza e Jonny Joseph MD Primary Care Provider [phone] Encounter Details Date Type Department Care Team (Late st Contact Info) Description 01/20/2016 Scanned Document [facility] [address] [place] [address] Provider, Generic Social History Tobacco Use Types [...] on filedocumented in this encounter Care Teams Bobbin Marker Relationship Specialty Start Date End Date Pcp, No PCP - General General Medicine 01/18/16 06/16/19 Jonny Joseph MD [address] [place] [address] PCP - General Family Medicine 06/17/19 documented as of this encounter
--- OUTSIDE RECORDS SUMMARY | 2024-11-18 19:39 | XMS_ITS | Encounter Summary ---
Author Organization [facility] Address [address] [place] [address] Care Team Providers Care Real Estate Operations Manager Name Role Phone Jonny Joseph MD Primary Care Provider [phone] Reason for Visit * Reason Comments Medication Refill Encounter Details Date Type Department Care Team (Late st Contact Info) Description 06/18/[address] [facility] [address] [address] Alessandra Banuelos PA [address] [place] [address] H/O acute pancreatitis; LUQ pain Social History [...] quadrant documented in this encounter Care Teams Real Estate Operations Manager Relationship Specialty Start Date End Date Jonny Joseph MD [address] [place], [place] [phone] PCP - General Family Medicine 06/17/19 documented as of this encounter
== END ==
LOC: HO.HWS 15:48
PROVIDERS: PCP Physician Assistant; Visit Provider Obstetrics & Gynecology
DX: R10.2 Pelvic and perineal pain (principal)
CPT/HCPCS: 99213

== ENCOUNTER → 2024-11-18 15:48 | Outpatient (BNVA) | payer OTHER, SELFPAY | PROVIDERS: PCP Physician Assistant; Visit Provider Obstetrics & Gynecology ==

== ENCOUNTER 2024-12-13 10:47 | Outpatient (REF) | payer OTHER, SELFPAY ==
[2024-12-13 11:41] LABS: Hematocrit 41.6 % (37.0-47.0); Hemoglobin 13.2 g/dl (12.0-16.0); Mean Corpuscular HGB Conc 31.7 g/dl (31.0-35.0); Mean Corpuscular Hemoglobin 26.7 pg (27.0-33.0); Mean Corpuscular Volume 84.2 fL (80.0-98.0); Mean Platelet Volume 10.1 fL (9.4-12.3); Platelet Count 336 X10*3/uL (160-400); Red Blood Count 4.94 X10*6/uL (4.20-5.50); Red Cell Distribution Width 14.9 % (11.0-16.0); White Blood Count 11.2 X10*3/uL (4.8-10.8)
--- OUTSIDE RECORDS SUMMARY | 2024-12-13 11:52 | XMS_ITS | Encounter Summary ---
Author Organization [facility] Address [address] [place] [address] Care Team Providers Care Retirement Plan Counselor Name Role Phone Pcp, Heidi Primary Care Provider Eliza e Jonny Joseph MD Primary Care Provider [phone] Encounter Details Date Type Department Care Team (Late st Contact Info) Description 01/20/2016 Scanned Document [facility] [address] [place] [address] Provider, Generic Social History Tobacco Use Types [...] on filedocumented in this encounter Care Teams Retirement Plan Counselor Relationship Specialty Start Date End Date Pcp, No PCP - General General Medicine 01/18/16 06/16/19 Jonny Joseph MD [address] [place] [address] PCP - General Family Medicine 06/17/19 documented as of this encounter
--- OUTSIDE RECORDS SUMMARY | 2024-12-13 11:52 | XMS_ITS | Encounter Summary ---
Author Organization [facility] Address [address] [place] [address] Care Team Providers Care Joint Terminal Attack Controller Name Role Phone Jonny Joseph MD Primary Care Provider [phone] Reason for Visit * Reason Comments Medication Refill Encounter Details Date Type Department Care Team (Late st Contact Info) Description 06/18/[address] [facility] [address] [address] Alessandra Banuelos PA [address] [place] [address] H/O acute pancreatitis; LUQ pain Social History [...] quadrant documented in this encounter Care Teams Joint Terminal Attack Controller Relationship Specialty Start Date End Date Jonny Joseph MD [address] [place], [place] [phone] PCP - General Family Medicine 06/17/19 documented as of this encounter
--- OUTSIDE RECORDS SUMMARY | 2024-12-13 11:52 | XMS_ITS | Clinical Summary ---
Author Organization [facility] Address [address] [place] [address] Care Team Providers Care Miniature Set Designer Name Role Phone Jonny Joseph MD Primary Care Provider [phone] Allergies Active Allergy Reactions Criticality Noted Date Comments Oxycodone Unknown/Patient and Family Unable to Define Medium 06/17/2019 Medications Medication Sig Dispensed Refills Start Date End Date Status levonorgestrel (MIRENA) 20 mcg/24hr IUD 1 each by Intrauterine route once. Active cetirizine (ZyrTEC) 10 MG chewable tablet Chew 10 mg daily. Ac tive pancrelipase (CREON) [address] Particles capsuleIndication s:H/O acute [...] scan to r/o pancreatic pathology Cont creon 56905 with snack [place] 514[address] with meal LUQ pain 06/17/2019 Assessment & [...] age to complete this topic Care Teams Miniature Set Designer Relationship Specialty Start Date End Date Jonny Joseph MD [address] [place] [address] PCP - General Family Medicine 06/17/19
[2024-12-13 12:11] LABS: Iron 39 mcg/dL (30-160); Percent Iron Saturation 14 % (15-50); Total Iron Binding Capacity 280 mcg/dL (228-428); Unsaturated Iron Binding 241 ug/dL
== END 2024-12-13 10:48 | disposition home or self-care (01) ==
LOC: HO.LAB 10:47
PROVIDERS: PCP Physician Assistant; Visit Provider Physician Assistant
DX: R53.83 Other fatigue (principal); D50.9 Iron deficiency anemia, unspecified
CPT/HCPCS: 36415; 83540; 85027

== ENCOUNTER 2024-12-25 15:11 | Outpatient (REF) | payer OTHER, SELFPAY ==
--- NOTE | ~2024-12-25 | XR_ITS ---
EXAMINATION: XR FOOT, RIGHT CLINICAL INFORMATION: M79.671 - Pain in right foot COMPARISON: None available. TECHNIQUE: AP, lateral, and oblique views of the right foot. FINDINGS: The bones and soft tissues are normal. No fracture. Alignment is anatomic. Joint spaces are maintained. There is a small calcaneal heel and retrocalcaneal enthesophytes. XR/XR foot RT 2V IMPRESSION: Unremarkable right foot exam Electronically signed by: Edin Sofia MD 12/27/2024 03:17 PM EST
--- OUTSIDE RECORDS SUMMARY | 2024-12-25 18:23 | XMS_ITS | Clinical Summary ---
Author Organization [facility] Address [address] [place] [address] Care Team Providers Care Model Maker Scale Name Role Phone Jonny Joseph MD Primary Care Provider [phone] Allergies Active Allergy Reactions Criticality Noted Date Comments Oxycodone Unknown/Patient and Family Unable to Define Medium 06/17/2019 Medications Medication Sig Dispensed Refills Start Date End Date Status levonorgestrel (MIRENA) 20 mcg/24hr IUD 1 each by Intrauterine route once. Active cetirizine (ZyrTEC) 10 MG chewable tablet Chew 10 mg daily. Ac tive pancrelipase (CREON) [address] Particles capsuleIndication s:H/O acute [...] scan to r/o pancreatic pathology Cont creon 13246 [place] [address] with meal LUQ pain 06/17/2019 Assessment & [...] age to complete this topic Care Teams Model Maker Scale Relationship Specialty Start Date End Date Jonny Joseph MD [address] [place] [address] PCP - General Family Medicine 06/17/19
--- OUTSIDE RECORDS SUMMARY | 2024-12-25 18:23 | XMS_ITS | Encounter Summary ---
Author Organization [facility] Address [address] [place] [address] Care Team Providers Care Splicing Machine Operator Automatic Name Role Phone Jonny Joseph MD Primary Care Provider [phone] Reason for Visit * Reason Comments Medication Refill Encounter Details Date Type Department Care Team (Late st Contact Info) Description 06/18/2020 [address]ill [facility] [address] [address] Alessandra Banuelos PA [address] [place] [address] H/O acute pancreatitis; LUQ pain Social History [...] quadrant documented in this encounter Care Teams Splicing Machine Operator Automatic Relationship Specialty Start Date End Date Jonny Joseph MD [address] [place], [place] [phone] PCP - General Family Medicine 06/17/19 documented as of this encounter
--- OUTSIDE RECORDS SUMMARY | 2024-12-25 18:23 | XMS_ITS | Encounter Summary ---
Author Organization [facility] Address [address] [place] [address] Care Team Providers Care Drawing Tender Name Role Phone Pcp, Heidi Primary Care Provider Eliza e Jonny Joseph MD Primary Care Provider [phone] Encounter Details Date Type Department Care Team (Late st Contact Info) Description 01/20/2016 Scanned Document [facility] [address] [place] [address] Provider, Generic Social History Tobacco Use Types [...] on filedocumented in this encounter Care Teams Drawing Tender Relationship Specialty Start Date End Date Pcp, No PCP - General General Medicine 01/18/16 06/16/19 Jonny Joseph MD [address] [place] [address] PCP - General Family Medicine 06/17/19 documented as of this encounter
== END 2024-12-25 15:12 | disposition home or self-care (01) ==
LOC: HO.XRAY 15:11
PROVIDERS: PCP Physician Assistant; Visit Provider Physician Assistant
DX: M79.671 Pain in right foot (principal)
CPT/HCPCS: 73620

== ENCOUNTER → 2024-12-25 15:14 | Outpatient (BNV) | payer OTHER, SELFPAY | PROVIDERS: PCP Physician Assistant; Visit Provider Radiology Diagnostic Radiology | DX: M79.671 Pain in right foot (principal) | CPT/HCPCS: 73620 ==

== ENCOUNTER 2025-01-07 15:34 | Outpatient (AMB) | payer OTHER, SELFPAY ==
[2025-01-07 15:36] VITALS: BP 140/76; PULSE 74; O2SAT 98
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
--- OUTSIDE RECORDS SUMMARY | 2025-01-07 18:25 | XMS_ITS | Encounter Summary ---
Author Organization [facility]ly [facility] Address [address] [place] [address] Care Team Providers Care Safety Net Maker Name Role Phone Jonny Joseph MD Primary Care Provider [phone] Reason for Visit * Reason Comments Medication Refill Encounter Details Date Type Department Care Team (Late st Contact Info) Description 06/18/[address] [facility] [address] [address] Alessandra Banuelos PA [address] [place] [id number] H/O acute pancreatitis; LUQ pain Social History [...] quadrant documented in this encounter Care Teams Safety Net Maker Relationship Specialty Start Date End Date Jonny Joseph MD [address] [place], [place] [phone] PCP - General Family Medicine 06/17/19 documented as of this encounter
--- OUTSIDE RECORDS SUMMARY | 2025-01-07 18:25 | XMS_ITS | Clinical Summary ---
Author Organization Count includes the [facility] Address [address] [place] [address] Care Team Providers Care Ball Warper Tender Name Role Phone Maciej Curran Primary Care Provider Social History Tobacco Use Types Packs/Day Years Used Date Smoking Tobacco: Never Assessed Comments Unknown Sex and Gender Information Value Date Recorded Sex Assigned at Not on file Legal Sex Female 12:01 PM EST Gender Identity Not on file Sexual Orientation Not on file Plan of Treatment Upcoming Encounters Date Type Department Care Team ([facility] st Contact Info) Description 03/28/2025 10:30 AM EDT Office Visit Count includes the [facility] Department of Women's Health Outpatient [place] [address] [place] [address] Sarah Hamilton MD [facility]-OBSTETRICS/[place] [address] Health Maintenance Due Date Last Done Comments HIV Screening 1988 Pneumococcal Vaccine: Pediatrics (0 to 5 Years) and At-Risk Patients (6 to 64 Years) (1 of 2 - PCV) 1994 DTaP,Tdap,and Td Vaccines (1 - Tdap) 2006 Hepatitis C Screening 2006 Hepatitis B Vaccines (1 of 3 - 19+ 3-dose series) 2007 Pap Smear 2009 Cervical Cancer Screening 2018 HPV/Cotest 2018 COVID-19 Vaccine ( - 2023-2 5 season) 2024 10/21/2021, 11/04/2020, 10/14/2020 Influenza Vaccine (#1) 2024 1, 08/07/2020, 07/17/2018 Zoster Vaccines (1 of 2) 2038 HPV Vaccines Aged Out No longer eligi ble based on patient's age to complete this topic Hepatitis A Vaccines Aged Out No long er eligible based on patient's age to complete this topic MMR Vaccines Aged Out No longer eligi ble based on patient's age to complete this topic Meningococcal Vaccine Aged Out No suhail soren eligible based on patient's age to complete this topic Insurance ANTHEM - OUT OF STATE Care Teams Ball Warper Tender Relationship Specialty Start Date End Date Maciej Curran PA [address] [place] [id number] PCP - General Primary Care 12/26/24
--- OUTSIDE RECORDS SUMMARY | 2025-01-07 18:25 | XMS_ITS | Clinical Summary ---
Author Organization [facility] Address [address] [place] [address] Care Team Providers Care Supervisor Cabinetmaker Name Role Phone Jonny Joseph MD Primary Care Provider [phone] Allergies Active Allergy Reactions Criticality Noted Date Comments Oxycodone Unknown/Patient and Family Unable to Define Medium 06/17/2019 Medications Medication Sig Dispensed Refills Start Date End Date Status levonorgestrel (MIRENA) 20 mcg/24hr IUD 1 each by Intrauterine route once. Active cetirizine (ZyrTEC) 10 MG chewable tablet Chew 10 mg daily. Ac tive pancrelipase (CREON) [address] Particles capsuleIndication s:H/O acute [...] scan to r/o pancreatic pathology Cont creon 50[address] [place] [address] with meal LUQ pain 06/17/2019 Assessment & [...] age to complete this topic Care Teams Supervisor Cabinetmaker Relationship Specialty Start Date End Date Jonny Joseph MD [address] [place] [address] PCP - General Family Medicine 06/17/19
--- OUTSIDE RECORDS SUMMARY | 2025-01-07 18:25 | XMS_ITS | Encounter Summary ---
Author Organization [facility] Address [address] [place] [address] Care Team Providers Care Internet Application Developer Name Role Phone Pcp, Heidi Primary Care Provider Eliza e Jonny Joseph MD Primary Care Provider [phone] Encounter Details Date Type Department Care Team (Late st Contact Info) Description 01/20/2016 Scanned Document [facility] [address] [place] [address] Provider, Generic Social History Tobacco Use Types [...] on filedocumented in this encounter Care Teams Internet Application Developer Relationship Specialty Start Date End Date Pcp, No PCP - General General Medicine 01/18/16 06/16/19 Jonny Joseph MD [address] [place] [id number] PCP - General Family Medicine 06/17/19 documented as of this encounter
== END 2025-01-07 16:16 | disposition home or self-care (01) ==
LOC: HO.HMCH 15:35
PROVIDERS: PCP Physician Assistant; Visit Provider Physician Assistant
DX: I10 Essential (primary) hypertension (principal); R10.2 Pelvic and perineal pain; D50.9 Iron deficiency anemia, unspecified; M79.671 Pain in right foot; G43.109 Migraine with aura, not intractable, without status migrainosus

== ENCOUNTER → 2025-01-07 15:34 | Outpatient (BNVA) | payer OTHER, SELFPAY | PROVIDERS: PCP Physician Assistant; Visit Provider Physician Assistant | DX: I10 Essential (primary) hypertension (principal); R10.2 Pelvic and perineal pain; N80.9 Endometriosis, unspecified; D50.9 Iron deficiency anemia, unspecified; M79.671 Pain in right foot; G43.109 Migraine with aura, not intractable, without status migrainosus | CPT/HCPCS: 96127 ==

== ENCOUNTER 2025-01-27 07:31 | Outpatient (REF) | payer OTHER, SELFPAY ==
--- NOTE | ~2025-01-27 | CT_ITS ---
CLINICAL HISTORY: M79.671 - Pain in right foot Exam: CT of the right foot without intravenous contrast. Comparison: Radiographs December 25, 2024. Findings: Bony alignment of the Lisfranc articulation is anatomic. No acute fracture. No erosions are identified. 1 mm intra-articular loose body along the posterior aspect of the medial ankle joint. No joint effusion. No periosteal reaction. No focal muscle atrophy. No abnormal fluid collections. Impression: Tiny intra-articular loose body. Otherwise, negative CT of the right foot. Consider MRI for further evaluation. This document has been electronically signed by: Roberto Zambrano MD on 01/28/2025 09:01:04
--- OUTSIDE RECORDS SUMMARY | 2025-01-27 07:33 | XMS_ITS | Clinical Summary ---
Author Organization [facility] Address [address] [place] [address] Care Team Providers Care Plasterer Rough Name Role Phone Jonny Joseph MD Primary Care Provider [phone] Allergies Active Allergy Reactions Criticality Noted Date Comments Oxycodone Unknown/Patient and Family Unable to Define Medium 06/17/2019 Medications Medication Sig Dispensed Refills Start Date End Date Status levonorgestrel (MIRENA) 20 mcg/24hr IUD 1 each by Intrauterine route once. Active cetirizine (ZyrTEC) 10 MG chewable tablet Chew 10 mg daily. Ac tive pancrelipase (CREON) [address] Particles capsuleIndication s:H/O acute [...] scan to r/o pancreatic pathology Cont creon 39669 with snack [place] 20370 with meal LUQ pain 06/17/2019 Assessment & [...] age to complete this topic Care Teams Plasterer Rough Relationship Specialty Start Date End Date Jonny Joseph MD [address] [place] [address] PCP - General Family Medicine 06/17/19
--- OUTSIDE RECORDS SUMMARY | 2025-01-27 07:33 | XMS_ITS | Encounter Summary ---
Author Organization [facility] Address [address] [place] [address] Care Team Providers Care Sew On Operator Name Role Phone Jonny Joseph MD Primary Care Provider [phone] Reason for Visit * Reason Comments Medication Refill Encounter Details Date Type Department Care Team (Late st Contact Info) Description 06/18/2020 [address] [facility] [address] [address] Alessandra Banuelos PA [address] [place] [id number] H/O acute pancreatitis; LUQ pain Social History [...] quadrant documented in this encounter Care Teams Sew On Operator Relationship Specialty Start Date End Date Jonny Joseph MD [address] [place], [place] [phone] PCP - General Family Medicine 06/17/19 documented as of this encounter
--- OUTSIDE RECORDS SUMMARY | 2025-01-27 07:33 | XMS_ITS | Clinical Summary ---
Author Organization [facility] Address [address] [place] [address] Care Team Providers Care Tile Molder Name Role Phone Maciej Curran Primary Care Provider Social History Tobacco Use Types Packs/Day Years Used Date Smoking Tobacco: Never Assessed Comments Unknown Sex and Gender Information Value Date Recorded Sex Assigned at Not on file Legal Sex Female 12:01 PM EST Gender Identity Not on file Sexual Orientation Not on file Plan of Treatment Upcoming Encounters Date Type Department Care Team ([facility] st Contact Info) Description 03/28/2025 10:30 AM EDT Office Visit [facility] Department of Women's Health Outpatient [place] [address] [place] [address] Sarah Hamilton MD [address] [place] [address]-OBSTETRICS/[place] [address] Health Maintenance Due Date Last Done Comments HIV Screening 1988 DTaP,Tdap,and Td Vaccines (1 - Tdap) 2006 Hepatitis C Screening 2006 Hepatitis B Vaccines (1 of 3 - 19+ 3-dose series) 2007 Pneumococcal Vaccine: Pediatrics (0 to 5 Years) and At-Risk Patients (6 to 49 Years) (1 of 2 - PCV) 2007 Pap Smear 2009 Cervical Cancer Screening 2018 HPV/Cotest 2018 COVID-19 Vaccine ( - 2023-2 5 season) 2024 10/21/2021, 11/04/2020, 10/14/2020 Influenza Vaccine (Season Ended) 2025 08/19/2021, 08/07/2020, 07/17/2018 Zoster Vaccines (1 of 2) [...] ANTHEM - OUT OF STATE Care Teams Tile Molder Relationship Specialty Start Date End Date Maciej Curran PA [address] [place] [id number] PCP - General Primary Care 12/26/24
--- OUTSIDE RECORDS SUMMARY | 2025-01-27 07:33 | XMS_ITS | Encounter Summary ---
Author Organization [facility] Address [address] [place] [address] Care Team Providers Care Heat Treater Name Role Phone Pcp, Heidi Primary Care Provider Eliza e Jonny Joseph MD Primary Care Provider [phone] Encounter Details Date Type Department Care Team (Late st Contact Info) Description 01/20/2016 Scanned Document [facility] [address] [place] [address] Provider, Generic Social History Tobacco Use Types [...] on filedocumented in this encounter Care Teams Heat Treater Relationship Specialty Start Date End Date Pcp, No PCP - General General Medicine 01/18/16 06/16/19 Jonny Joseph MD [address] [place] [id number] PCP - General Family Medicine 06/17/19 documented as of this encounter
== END 2025-01-27 07:32 | disposition home or self-care (01) ==
LOC: HO.CT 07:31
PROVIDERS: PCP Physician Assistant; Visit Provider Physician Assistant
DX: M79.671 Pain in right foot (principal)
CPT/HCPCS: 73700

== ENCOUNTER → 2025-01-27 07:32 | Outpatient (BNV) | payer OTHER, SELFPAY | PROVIDERS: PCP Physician Assistant; Visit Provider Radiology Diagnostic Radiology | DX: M79.671 Pain in right foot (principal) | CPT/HCPCS: 73700 ==

== ENCOUNTER 2025-01-28 09:57 | Outpatient (AMB) | payer OTHER, SELFPAY ==
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
[2025-01-28 10:01] VITALS: BP 122/80; PULSE 70; TEMP 36.5; O2SAT 98
--- OUTSIDE RECORDS SUMMARY | 2025-01-28 11:30 | XMS_ITS | Clinical Summary ---
Author Organization [facility] Address [address] [place] [address] Care Team Providers Care Chemistry Faculty Member Name Role Phone Jonny Joseph MD Primary Care Provider [phone] Allergies Active Allergy Reactions Criticality Noted Date Comments Oxycodone Unknown/Patient and Family Unable to Define Medium 06/17/2019 Medications Medication Sig Dispensed Refills Start Date End Date Status levonorgestrel (MIRENA) 20 mcg/24hr IUD 1 each by Intrauterine route once. Active cetirizine (ZyrTEC) 10 MG chewable tablet Chew 10 mg daily. Ac tive pancrelipase (CREON) [address] Particles capsuleIndication s:H/O acute [...] scan to r/o pancreatic pathology Cont creon 61174 with snack [place] 14790 with meal LUQ pain 06/17/2019 Assessment & [...] age to complete this topic Care Teams Chemistry Faculty Member Relationship Specialty Start Date End Date Jonny Joseph MD [address] [place] [address] PCP - General Family Medicine 06/17/19
--- OUTSIDE RECORDS SUMMARY | 2025-01-28 11:30 | XMS_ITS | Encounter Summary ---
Author Organization [facility] Address [address] [place] [address] Care Team Providers Care Supervisor Sewer System Name Role Phone Jonny Joseph MD Primary Care Provider [phone] Reason for Visit * Reason Comments Medication Refill Encounter Details Date Type Department Care Team (Late st Contact Info) Description 06/18/[address] [facility] [address] [address] Alessandra Banuelos PA [address] [place] [address] H/O acute pancreatitis; LUQ pain Social History [...] quadrant documented in this encounter Care Teams Supervisor Sewer System Relationship Specialty Start Date End Date Jonny Joseph MD [address] [place], [place] [id number] PCP - General Family Medicine 06/17/19 documented as of this encounter
--- OUTSIDE RECORDS SUMMARY | 2025-01-28 11:30 | XMS_ITS | Clinical Summary ---
Author Organization [facility] Address [address] [place] [address] Care Team Providers Care Lace Inspector Name Role Phone Maciej Curran Primary Care Provider [phone] Social History Tobacco Use Types Packs/Day Years Used Date Smoking Tobacco: Never Assessed Comments Unknown Sex and Gender Information Value Date Recorded Sex Assigned at Not on file Legal Sex Female 12:01 PM EST Gender Identity Not on file Sexual Orientation Not on file Plan of Treatment Upcoming Encounters Date Type Department Care Team ([facility] st Contact Info) Description 03/28/2025 10:30 AM EDT Office Visit [facility] Department of Women's Health Outpatient [place] [address] [place] [address] Sarah Hamilton MD [address] [place] [address]-OBSTETRICS/[place] [address] Health Maintenance Due Date Last Done Comments [...] ANTHEM - OUT OF STATE Care Teams Lace Inspector Relationship Specialty Start Date End Date Maciej Curran PA [address] [place] [id number] PCP - General Primary Care 12/26/24
--- OUTSIDE RECORDS SUMMARY | 2025-01-28 11:30 | XMS_ITS | Encounter Summary ---
Author Organization [facility] Address [address] [place] [address] Care Team Providers Care Licensed Prosthetist Name Role Phone Pcp, Heidi Primary Care Provider Eliza e Jonny Joseph MD Primary Care Provider [phone] Encounter Details Date Type Department Care Team (Late st Contact Info) Description 01/20/2016 Scanned Document [facility] [address] [place] [address] Provider, Generic Social History Tobacco Use Types [...] on filedocumented in this encounter Care Teams Licensed Prosthetist Relationship Specialty Start Date End Date Pcp, No PCP - General General Medicine 01/18/16 06/16/19 Jonny Joseph MD [address] [place] [id number] PCP - General Family Medicine 06/17/19 documented as of this encounter
== END 2025-01-28 10:18 | disposition home or self-care (01) ==
PROVIDERS: PCP Physician Assistant; Visit Provider Physician Assistant
DX: J06.9 Acute upper respiratory infection, unspecified (principal); Z13.9 Encounter for screening, unspecified

== ENCOUNTER → 2025-01-28 09:57 | Outpatient (BNVA) | payer OTHER, SELFPAY | PROVIDERS: PCP Physician Assistant; Visit Provider Physician Assistant | DX: J06.9 Acute upper respiratory infection, unspecified (principal) | CPT/HCPCS: 87880 ==

== ENCOUNTER 2025-01-31 14:31 | Outpatient (AMB) | payer OTHER, SELFPAY ==
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
[2025-01-31 14:46] VITALS: BP 110/57; PULSE 80
--- OUTSIDE RECORDS SUMMARY | 2025-01-31 14:48 | XMS_ITS | Encounter Summary ---
Author Organization [facility] Address [address] [place] [address] Care Team Providers Care Estimator Printing Name Role Phone Pcp, Heidi Primary Care Provider Eliza e Jonny Joseph MD Primary Care Provider [phone] Encounter Details Date Type Department Care Team (Late st Contact Info) Description 01/20/[address] [facility] [address] [place] [address] Provider, Generic Social History Tobacco Use Types [...] on filedocumented in this encounter Care Teams Estimator Printing Relationship Specialty Start Date End Date Pcp, No PCP - General General Medicine 01/18/16 06/16/19 Jonny Joseph MD [address] [place] [id number] PCP - General Family Medicine 06/17/19 documented as of this encounter
--- OUTSIDE RECORDS SUMMARY | 2025-01-31 14:48 | XMS_ITS | Encounter Summary ---
Author Organization [facility] Address [address] [place] [address] Care Team Providers Care Exhibitions Curator Name Role Phone Jonny Joseph MD Primary Care Provider Reason for Visit * Reason Comments Medication Refill Encounter Details Date Type Department Care Team (Late st Contact Info) Description 06/18/[address] [facility] [address] [address] Alessandra Banuelos PA [address] [place] [address] H/O acute pancreatitis; LUQ pain Social History [...] quadrant documented in this encounter Care Teams Exhibitions Curator Relationship Specialty Start Date End Date Jonny Joseph MD [address] [place], [place] [phone] PCP - General Family Medicine 06/17/19 documented as of this encounter
--- OUTSIDE RECORDS SUMMARY | 2025-01-31 14:48 | XMS_ITS | Clinical Summary ---
Author Organization [facility] Address [address] [place] [address] Care Team Providers Care Centrifugal Drier Operator Name Role Phone Jonny Joseph MD Primary Care Provider [phone] Allergies Active Allergy Reactions Criticality Noted Date Comments Oxycodone Unknown/Patient and Family Unable to Define Medium 06/17/2019 Medications Medication Sig Dispensed Refills Start Date End Date Status levonorgestrel (MIRENA) 20 mcg/24hr IUD 1 each by Intrauterine route once. Active cetirizine (ZyrTEC) 10 MG chewable tablet Chew 10 mg daily. Ac tive pancrelipase (CREON) [address] Particles capsuleIndication s:H/O acute [...] scan to r/o pancreatic pathology Cont creon 57178 with snack [place] 39542 with meal LUQ pain 06/17/2019 Assessment & [...] age to complete this topic Care Teams Centrifugal Drier Operator Relationship Specialty Start Date End Date Jonny Joseph MD [address] [place] [address] PCP - General Family Medicine 06/17/19
--- OUTSIDE RECORDS SUMMARY | 2025-01-31 14:48 | XMS_ITS | Clinical Summary ---
Author Organization [facility] Address [address] [place] [address] Care Team Providers Care Garment Presser Name Role Phone Maciej Curran Primary Care Provider Social History Tobacco Use Types Packs/Day Years Used Date Smoking Tobacco: Never Assessed Comments Unknown Sex and Gender Information Value Date Recorded Sex Assigned at Not on file Legal Sex Female 12:01 PM EST Gender Identity Not on file Sexual Orientation Not on file Plan of Treatment Upcoming Encounters Date Type Department Care Team ([facility] Contact Info) Description 03/28/2025 10:30 AM EDT Office Visit [facility] Department of Women's Health Outpatient [place] [address] [place] [address] Sarah Hamilton MD [facility] [address]-OBSTETRICS/[place] [address] Health Maintenance Due Date Last Done Comments [...] ANTHEM - OUT OF STATE Care Teams Garment Presser Relationship Specialty Start Date End Date Maciej Curran PA [address] [place] [phone] PCP - General Primary Care 12/26/24
== END 2025-01-31 15:26 | disposition home or self-care (01) ==
LOC: HO.HGI 14:32
PROVIDERS: PCP Physician Assistant; Visit Provider Internal Medicine
DX: K58.2 Mixed irritable bowel syndrome (principal); R10.9 Unspecified abdominal pain; R19.8 Other specified symptoms and signs involving the digestive system and abdomen
CPT/HCPCS: 99214

== ENCOUNTER 2025-02-03 19:16 | Outpatient (REF) | payer OTHER, SELFPAY ==
--- OUTSIDE RECORDS SUMMARY | 2025-02-03 19:19 | XMS_ITS | Clinical Summary ---
Author Organization [facility] Address [address] [place] [address] Care Team Providers Care Home Health Speech Therapist Name Role Phone Jonny Joseph MD Primary Care Provider [phone] Allergies Active Allergy Reactions Criticality Noted Date Comments Oxycodone Unknown/Patient and Family Unable to Define Medium 06/17/2019 Medications Medication Sig Dispensed Refills Start Date End Date Status levonorgestrel (MIRENA) 20 mcg/24hr IUD 1 each by Intrauterine route once. Active cetirizine (ZyrTEC) 10 MG chewable tablet Chew 10 mg daily. Ac tive pancrelipase (CREON) [address] Particles capsuleIndication s:H/O acute [...] scan to r/o pancreatic pathology Cont creon 88816 with snack [place] [address] with meal LUQ pain 06/17/2019 Assessment & [...] age to complete this topic Care Teams Home Health Speech Therapist Relationship Specialty Start Date End Date Jonny Joseph MD [address] [place] [address] PCP - General Family Medicine 06/17/19
--- OUTSIDE RECORDS SUMMARY | 2025-02-03 19:19 | XMS_ITS | Clinical Summary ---
[facility] Organization [facility] Address [address] [place] [address] Care Team Providers Care Artificial Stone Setter Name Role Phone Maciej Curran Primary Care Provider Social History Tobacco Use Types Packs/Day Years Used Date Smoking Tobacco: Never Assessed Comments Unknown Sex and Gender Information Value Date Recorded Sex Assigned at Not on file Legal Sex Female 12:01 PM EST Gender Identity Not on file Sexual Orientation Not on file Plan of Treatment Upcoming Encounters Date Type Department Care Team ([facility] Contact Info) Description 03/28/2025 10:30 AM EDT Office Visit [facility] Department of Women's Health Outpatient [place] [address] [place] [address] Sarah Hamilton MD [facility]-OBSTETRICS/[place] [address] Health Maintenance Due Date Last Done Comments [...] ANTHEM - OUT OF STATE Care Teams Artificial Stone Setter Relationship Specialty Start Date End Date Maciej Curran PA [address] [place] [phone] PCP - General Primary Care 12/26/24
--- OUTSIDE RECORDS SUMMARY | 2025-02-03 19:19 | XMS_ITS | Encounter Summary ---
Author Organization [facility] Address [address] [place] [address] Care Team Providers Care Internal Affairs Investigator Name Role Phone Pcp, Heidi Primary Care Provider Eliza e Jonny Joseph MD Primary Care Provider [phone] Encounter Details Date Type Department Care Team (Late st Contact Info) Description 01/20/2016 Scanned Document [facility] [address] [place] [address] Provider, Generic Social History Tobacco Use Types [...] on filedocumented in this encounter Care Teams Internal Affairs Investigator Relationship Specialty Start Date End Date Pcp, No PCP - General General Medicine 01/18/16 06/16/19 Jonny Joseph MD [address] [place] [id number] PCP - General Family Medicine 06/17/19 documented as of this encounter
--- OUTSIDE RECORDS SUMMARY | 2025-02-03 19:20 | XMS_ITS | Encounter Summary ---
Author Organization [facility] Address [address] [place] [address] Care Team Providers Care Poker Dealer Name Role Phone Jonny Joseph MD Primary Care Provider [phone] Reason for Visit * Reason Comments Medication Refill Encounter Details Date Type Department Care Team (Late st Contact Info) Description 06/18/2020 [address]ill [facility] [address] [address] Alessandra Banuelos PA [address] [place] [id number] H/O acute pancreatitis; LUQ pain Social History [...] quadrant documented in this encounter Care Teams Poker Dealer Relationship Specialty Start Date End Date Jonny Joseph MD [address] [place], [place] [id number] PCP - General Family Medicine 06/17/19 documented as of this encounter
== END 2025-02-03 19:17 | disposition home or self-care (01) ==
LOC: HO.MRI 19:16
PROVIDERS: PCP Physician Assistant; Visit Provider Physician Assistant
DX: M79.671 Pain in right foot (principal); S90.851A Superficial foreign body, right foot, initial encounter
CPT/HCPCS: 73718

== ENCOUNTER → 2025-02-03 19:27 | Outpatient (BNV) | payer OTHER, SELFPAY | PROVIDERS: PCP Physician Assistant; Visit Provider Radiology Diagnostic Radiology | DX: M79.671 Pain in right foot (principal) | CPT/HCPCS: 73718 ==

== ENCOUNTER 2025-03-19 14:57 | Outpatient (RCR) | payer OTHER, SELFPAY ==
--- NOTE | 2025-02-26 15:21 | MHC.PT.EP ---
[facility] [place] Office [place] Office [place] Office [address] Carol Berrios [address] [phone] F: [phone] F: [phone] F: [phone] F: [phone] Physical Therapy Plan of Care Date of Evaluation: 02/26/25 Date of Surgery: NA Diagnosis: Pelvic and perineal pain Assessment: Carol is a 34 year old female who is referred to PT for pelvic and perineal pain . She reports of having pain in the R side of pelvis which radiates to R side vagina and mid pelvis for about 20 years however her symptoms got worse about 8 months back (currently 19 month pp). On examination she reports of having constant pain which gets worse with standing and walking, no urinary symptoms, has h/o IBS mixed types, no other bowel symptoms and pain with sexual intercourse. She presented with good lumbar and B LE ROM but decreased core strength. Pelvic floor exam deferred today. She lives with her and son and is independent with all ADLS but takes frequent seated rest breaks. 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 She would benefit from skilled PT to address the aforementioned impairments and improve tolerance to functional activities. Frequency and Duration: The patient will be seen 1/week for 10 weeks Short Term Goals: 1. Transvaginal exam and SI will be assessed in 2 weeks 2. Pt will have 50% decrease in pain with standing and walking in 4 weeks Halfway Goals: 1. Pt will have pain no more than 2/10 with sexual intercourse and CLINIC OFFICE ASSISTANT exam in 6 weeks 2. Pt will deny having pain at rest in 8 weeks 3. Pt will be independent with all HEP for symptom management and maintenance following d/c in 10 weeks Treatment Plan: Modalities to reduce pain, spasms and effusion. Manual therapy to restore motion and function. Therapeutic exercise to improve strength and flexibility. Neuromuscular re-education for posture and balance. Therapeutic activities to return to functional activities of daily living. Electronically signed by: Please sign and return to therapist. Thank you for your referral.
--- NOTE | 2025-04-09 10:35 | MHC.PT.DC ---
[facility] [place] Office [place] Office [place] Office [address] Sánchez Carol Berrios [address] [phone] F: [phone] F: [phone] F: [phone] F: [phone] Physical Therapy Discharge Report Diagnosis: Pelvic and perineal pain Date of Surgery: NA Date of Evaluation: 02/26/25 Date of Discharge: 04/09/25 Treatments to Date: 3 Cancellations to Date: 0 No Shows to Date: 0 Discharge Status: Patient Elected to Stop Discharge Summary: Carol attended 3 PT visits and then called to d/c herself stating she was going to need surgery (did not specify for what) and wanted to save her time off for that. She is therefore being d/c from PT. Electronically signed by: Ninfa Avelar, PT DPT Please sign and return to therapist. Thank you for your referral.
== END 2025-04-09 10:36 | disposition home or self-care (01) ==
LOC: HO.PT 14:57
PROVIDERS: PCP Physician Assistant; Visit Provider Physician Assistant
DX: R10.2 Pelvic and perineal pain (principal)
CPT/HCPCS: 97110; 97112; 97140; 97161

== ENCOUNTER → 2025-03-31 14:50 | Outpatient (BNVA) | payer OTHER, SELFPAY | PROVIDERS: PCP Physician Assistant; Visit Provider Physician Assistant Surgical ==

== ENCOUNTER 2025-04-03 06:55 | Day surgery (SDC) | payer OTHER, SELFPAY ==
--- OUTSIDE RECORDS SUMMARY | 2025-02-26 07:03 | XMS_ITS | Clinical Summary ---
Author Organization [facility] Address [address] [place] [address] Care Team Providers Care Materials Scientist Name Role Phone Jonny Joseph MD Primary Care Provider [phone] Allergies Active Allergy Reactions Criticality Noted Date Comments Oxycodone Unknown/Patient and Family Unable to Define Medium 06/17/2019 Medications levonorgestrel (MIRENA) 20 mcg/24hr IUD 1 each by Intrauterine route once. Active cetirizine (ZyrTEC) 10 MG chewable tablet Chew 10 mg daily. Active pancrelipase (CREON) [address] Particles capsuleIndicati ons:H/O acute pancreatitis,GM Q pain Take 1 capsule (12,000 Units total) by mouth 3 (three) times a day with meals. Dose is in units of lipase. 270 capsule 3 9 Active Active Problems Problem Noted Date Diagnosed Date H/O acute pancreatitis 06/17/2019 Assessment & Plan (06/17/2019 9:29 AM EDT): Pt has had continued LUQ pain x 2 yrs. I will send for Ct scan to r/o pancreatic pathology [place] 12[address] [place] [address] with meal LUQ pain 06/17/2019 Assessment & Plan (06/17/2019 9:29 AM EDT): Hx pancreatitis Ct scn Screening for tuberculosis 01/22/2016 Immunizations Immunization Administration Dates Next Due PPD Test 01/20/2016 [...] of Binge Drinking Not on file 05/24 Comments Unknown Sex and Gender Information Value Date Recorded Sex Assigned at Not on file Legal Sex Female 11:05 AM EST Gender Identity Not on file Sexual [...] series) 2007 Pap Smear (Ages 21-65) 2009 COVID-19 Vaccine ( - 2023-2 5 season) 2024 Influenza Vaccine 05/23/2025 HPV Vaccines Aged Out No longer eligi ble based on patient's age to complete this topic Pneumococcal Vaccine: Pediat sammy (0-5 Years) and At-Risk Patients (6 to 49 Years) Aged Out No longer eligible b ased on patient's age to complete this topic Insurance [facility] [employer] Care Teams Materials Scientist Relationship Specialty Start Date End Date Jonny Joseph MD [address] [place] [id number] PCP - General Family Medicine 06/17/19
--- OUTSIDE RECORDS SUMMARY | 2025-02-26 07:03 | XMS_ITS | Clinical Summary ---
Author Organization [facility] Address [address] [place] [address] Care Team Providers Care Multiple Knife Edge Trimmer Operator Name Role Phone Maciej Curran Primary Care Provider Social History Tobacco Use Types Packs/Day Years Used Date Smoking Tobacco: Never Assessed Comments Unknown Sex and Gender Information Value Date Recorded Sex Assigned at Not on file Legal Sex Female 12:01 PM EST Gender Identity Not on file Sexual Orientation Not on file Plan of Treatment Upcoming Encounters Date Type Department Care Team ([facility] Contact Info) Description 03/28/2025 10:30 AM EDT Office Visit [facility] Department of Women's Health Outpatient [place] [address] [place] [address] Sarah Hamilton MD [facility]-OBSTETRICS/[place] [address] Health Maintenance Due Date Last Done Comments [...] ANTHEM - OUT OF STATE Care Teams Multiple Knife Edge Trimmer Operator Relationship Specialty Start Date End Date Maciej Curran PA [address] [place] [phone] PCP - General Primary Care 12/26/24
--- OUTSIDE RECORDS SUMMARY | 2025-02-26 07:03 | XMS_ITS | Encounter Summary ---
Author Organization [facility] Address [address] [place] [address] Care Team Providers Care Grails Web Application Developer Name Role Phone Jonny Joseph MD Primary Care Provider [phone] Reason for Visit * Reason Comments Medication Refill Encounter Details Date Type Department Care Team (Late st Contact Info) Description 06/18/2020 [address]ill [facility] [address] [phone] Alessandra Banuelos PA [address] [place] [address] H/O acute pancreatitis; LUQ pain Social History [...] quadrant documented in this encounter Care Teams Grails Web Application Developer Relationship Specialty Start Date End Date Jonny Joseph MD [address] [place] [phone] PCP - General Family Medicine 06/17/19 documented as of this encounter
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
[2025-04-03 07:40] VITALS: BP 140/75; PULSE 68; RESP 18; TEMP 36.7; O2SAT 97; BMI 56.0
[2025-04-03] MEDS: Lactated Ringers 1,000 ML 100 ML IVCONT (07:46)
--- NOTE | 2025-04-03 07:55 | P.HPSUR_ITS ---
Pre-Procedural Eval Section A - 24 Hr Update-Section A only Date of Service: 04/03/25 Section B - Complete if H&P > 30 days Chief Complaint: Changes in bowel habits Details of Present Illness: Gestational diabetes mellitus Early stage of IUD check up Dysplasia of cervix, low grade (RAÚL 1) Myoma Endometrioma of ovary Complex cyst of left ovary ASCUS with positive high risk HPV cervical COVID-19 Pancreatic insufficiency Exercise-induced asthma Fibroid Cholecystitis Endometriosis HPV (human papilloma virus) anogenital infection Anxiety GERD (gastroesophageal reflux disease) Exocrine pancreatic insufficiency Migraine headache Surgical History Hx of colonoscopy History of esophagogastroduodenoscopy (EGD) H/O bilateral salpingectomy H/O section History of laparoscopic cholecystectomy H/O ovarian cystectomy History of gynecologic surgery [place] teeth extracted Hx of laparoscopy Allergies: Allergies Allergy/AdvReac Type Severity Reaction Status Date / Time oxycodone Allergy Severe Anaphylaxis Verified 01/31/25 14:42 amitriptyline Allergy Intermediate Confusion Verified 04/01/25 12:49 and night terrors. codeine Allergy Intermediate vomiting, Verified 04/01/25 12:49 itchying duloxetine Allergy Intermediate paresthesia Verified 04/01/25 12:49 and tardive diskinesia topiramate Allergy Intermediate chest Verified 04/01/25 12:49 pain, palpitations, confusion, tinnitus. sumatriptan AdvReac Intermediate Migraine Verified 04/01/25 12:49 nortriptyline AdvReac Mild hallucinations, Verified 01/31/25 14:42 joint stiffness, confusion Review of Systems Review of Systems Comment: Ten point ROS negative Exam Exam Comment: Gen appear: No acute distress HEENT: no icterus Chest: No overt resp distress Abd: soft, nontender, nondistended Psych: Stable affect, answering questions appropriately Neuro: A/Ox3 noted to move all extremities spontaneously Ext: no peripheral edema Plan Diagnosis/Plan: Unchanged I have reviewed the history and physical and performed a pertinent physical examination on my patient. No changes have occurred unless specified. Time Spent With Patient Time: Total time managing care of this patient today ____ minutes.
[2025-04-03 09:37] VITALS: BP 102/62; PULSE 94; RESP 16; TEMP 36.4; O2SAT 96
[2025-04-03 09:53] VITALS: BP 128/76; PULSE 89; RESP 20; TEMP 37.1; O2SAT 99
--- NOTE | 2025-04-03 10:09 | P.OPN-COLO_ITS ---
Colonoscopy Operative Note Operative Note Date of Service: 04/03/25 Narrative: Procedure: Upper endoscopy and colonoscopy Indication: Abd pain, change in bowel habits Endoscopist: Gisele Harrington MD Anesthesia Provider: Gary Yepez CRNA Anesthesia type: MAC Instrument: [id number] and [id number] EGD Procedure:?? The procedure, indications, preparation and potential complications were reviewed with the patient, who indicated understanding and gave written informed consent to proceed. The endoscope was introduced through the mouth, and advanced to the 2nd part of the duodenum. The mucosa was carefully examined on slow withdrawal of the endoscope. The patient tolerated the procedure well. There were no immediate complications.? EGD Findings:? * Esophagus: A focal patch of heterotopic gastric mucosa was noted in the upper esophagus. Remaining esophageal mucosa was normal. The Z-line was at 39 cm. Cold forceps biopsies were taken from GE junction to rule out Jernigan's esophagus. * Stomach:?Mild erythema and erosions in the antrum. One polyp of size 10 mm noted in the midbody of the stomach. Retroflexion was performed in the cardia. Cold forceps biopsies were taken from the gastric antrum and body. * Duodenum:? Normal duodenal mucosa. Cold forceps biopsies were taken from the duodenal bulb and 2nd portion of the duodenum to rule out celiac sprue. Colonoscopy Procedure:? The patient was then turned for the colonoscopy. An abdominal binder was affixed to the lower abdomen. A digital rectal exam was performed which was normal.? A distal attachment cap was affixed to the tip of the scope and the colonoscope was then inserted through the anus and advanced through the colon and advanced to the cecum at 75 cm and terminal ileum.? Appendiceal orifice and ileocecal valve were identified. Mucosa was carefully examined under high definition white light as the instrument was slowly withdrawn in a retrograde panoramic fashion. Retroflexion was performed in rectum. The procedure was not difficult. The quality of the prep was BBPS: 3+2+3 = adequate Withdrawal time 8 minutes Limitations: No limitations Findings: Mucosa: Normal colon and terminal ileum mucosa. Cold forceps biopsies were taken in the right and left side of the colon to rule out microscopic colitis. Protruding lesions: * Medium internal hemorrhoids without stigmata of recent bleeding. Excavated lesions: * Mild diverticulosis of sigmoid colon noted. Impression: 1. Inlet patch 2. Normal esophagus (biopsy) 3. Gastritis (biopsy) 4. Gastric polyp (biopsy) 5. Normal duodenum (biopsy) 6. Normal colon and terminal ileum mucosa (biopsy) 7. Diverticulosis 8. Internal hemorrhoids Recommendations:?? * Follow-up path results * Avoid NSAIDs * H Pylori treatment if biopsies + * Resume colonoscopy for asymptomatic colorectal cancer screening at 43 years of age
== END 2025-04-03 10:50 | disposition home or self-care (01) ==
PROVIDERS: PCP Physician Assistant; Visit Provider Internal Medicine
PROC: (CPT 45380; principal; 2025-04-03 08:20)
DX: R19.4 Change in bowel habit (principal); K57.30 Diverticulosis of large intestine without perforation or abscess without bleeding; K64.8 Other hemorrhoids; K58.2 Mixed irritable bowel syndrome; K29.50 Unspecified chronic gastritis without bleeding; K31.7 Polyp of stomach and duodenum; K22.9 Disease of esophagus, unspecified; K86.81 Exocrine pancreatic insufficiency; N80.9 Endometriosis, unspecified; N87.0 Mild cervical dysplasia; G43.909 Migraine, unspecified, not intractable, without status migrainosus; J45.990 Exercise induced bronchospasm; Z79.1 Long term (current) use of non-steroidal anti-inflammatories (NSAID); Z88.5 Allergy status to narcotic agent; Z88.8 Allergy status to other drugs, medicaments and biological substances; Z98.890 Other specified postprocedural states; Z90.49 Acquired absence of other specified parts of digestive tract
CPT/HCPCS: 45380; 43239; 88305; 88313; 88342; J2704

== ENCOUNTER → 2025-04-03 06:55 | Outpatient (BNV) | payer OTHER, SELFPAY | PROVIDERS: PCP Physician Assistant; Visit Provider Internal Medicine | DX: R10.9 Unspecified abdominal pain (principal); R19.4 Change in bowel habit; K57.30 Diverticulosis of large intestine without perforation or abscess without bleeding; K64.8 Other hemorrhoids; K22.89 Other specified disease of esophagus; K29.70 Gastritis, unspecified, without bleeding; K31.7 Polyp of stomach and duodenum | CPT/HCPCS: 43239; 45380 ==

== ENCOUNTER 2025-04-05 09:12 | Outpatient (AMB) | payer OTHER, SELFPAY ==
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
[2025-04-05 09:26] VITALS: BP 132/78; PULSE 61; TEMP 36.6; O2SAT 100
== END 2025-04-05 10:18 | disposition home or self-care (01) ==
PROVIDERS: PCP Physician Assistant; Visit Provider Nurse Practitioner Family
DX: J02.9 Acute pharyngitis, unspecified (principal); S10.12XA Blister (nonthermal) of throat, initial encounter; Z13.9 Encounter for screening, unspecified

== ENCOUNTER → 2025-04-05 09:12 | Outpatient (BNVA) | payer OTHER, SELFPAY | PROVIDERS: PCP Physician Assistant; Visit Provider Nurse Practitioner Family | DX: J02.9 Acute pharyngitis, unspecified (principal); S10.12XA Blister (nonthermal) of throat, initial encounter; X58.XXXA Exposure to other specified factors, initial encounter; Y93.9 Activity, unspecified; Y92.9 Unspecified place or not applicable; Y99.9 Unspecified external cause status; Z87.11 Personal history of peptic ulcer disease | CPT/HCPCS: 87880 ==

== ENCOUNTER 2025-04-11 08:13 | Outpatient (REF) | payer OTHER, SELFPAY ==
[2025-04-11 08:49] LABS: Hematocrit 39.6 % (37.0-47.0); Hemoglobin 12.3 g/dl (12.0-16.0); Mean Corpuscular HGB Conc 31.1 g/dl (31.0-35.0); Mean Corpuscular Hemoglobin 25.6 pg (27.0-33.0); Mean Corpuscular Volume 82.5 fL (80.0-98.0); Mean Platelet Volume 9.8 fL (9.4-12.3); Platelet Count 349 X10*3/uL (160-400); Red Cell Distribution Width 14.5 % (11.0-16.0); White Blood Count 9.4 X10*3/uL (4.8-10.8)
[2025-04-11 10:29] LABS: Creatinine Urine 230.56 mg/dL; Microalbum/Creatinine Ratio Ur 12.1 ug/mg cr (<30)
[2025-04-11 10:32] LABS: Alanine Aminotransferase 22 U/L (0-31); Albumin Level 4.2 g/dL (3.5-5.0); Alkaline Phosphatase 73 U/L (39-117); Anion Gap 13 (12-20); Aspartate Amino Transferase 19 U/L (5-31); Bilirubin Total 0.3 mg/dL (0.0-1.0); Blood Urea Nitrogen 10 mg/dL (9-16); Calcium 9.3 mg/dL (8.4-10.2); Carbon Dioxide 25 mmol/L (22-29); Chloride 108 mmol/L (96-108); Estimated Glomerular Filt Rate > 60; Glucose Fasting 112 mg/dL (60-99); Potassium 4.6 mmol/L (3.3-5.1); Sodium 141 mmol/L (135-145)
== END 2025-04-11 08:14 | disposition home or self-care (01) ==
LOC: HO.LAB 08:13
PROVIDERS: Visit Provider Physician Assistant
DX: I10 Essential (primary) hypertension (principal)
CPT/HCPCS: 36415; 80053; 82043; 82570; 85027

== ENCOUNTER 2025-04-14 08:09 | Outpatient (AMB) | payer OTHER, SELFPAY ==
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
[2025-04-14 08:28] VITALS: BMI 56.1
== END 2025-04-14 08:57 | disposition home or self-care (01) ==
LOC: HO.HBS 08:09
PROVIDERS: PCP Physician Assistant; Visit Provider Surgery
DX: E66.01 Morbid (severe) obesity due to excess calories (principal)
CPT/HCPCS: 99204

== ENCOUNTER 2025-04-16 15:36 | Outpatient (AMB) | payer OTHER, SELFPAY ==
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
[2025-04-16 15:47] VITALS: BP 128/78; PULSE 82; TEMP 36.3; O2SAT 97; BMI 55.8
--- OUTSIDE RECORDS SUMMARY | 2025-04-16 18:25 | XMS_ITS | Encounter Summary ---
Author Organization [facility] Address [address] [place] [address] Care Team Providers Care Principal Clerk Typist Name Role Phone Pcp, Heidi Primary Care Provider Jonny Faust MD Primary Care Provider [phone] Encounter Details Date Type Department Care Team (Late st Contact Info) Description 01/20/2016 Scanned Document [facility] [address] [place] [address] Provider, Generic Social History Tobacco Use Types [...] on filedocumented in this encounter Care Teams Principal Clerk Typist Relationship Specialty Start Date End Date Pcp, No PCP - General General Medicine 01/18/16 06/16/19 Jonny Joseph MD [address] [place] [address] PCP - General Family Medicine 06/17/19 documented as of this encounter
== END 2025-04-16 16:08 | disposition home or self-care (01) ==
LOC: HO.HMCH 15:37
PROVIDERS: PCP Physician Assistant; Visit Provider Physician Assistant
DX: I10 Essential (primary) hypertension (principal); E66.813 Obesity, class 3; Z68.43 Body mass index [BMI] 50.0-59.9, adult; R10.2 Pelvic and perineal pain; D50.9 Iron deficiency anemia, unspecified; M79.671 Pain in right foot

== ENCOUNTER → 2025-04-16 15:36 | Outpatient (BNVA) | payer OTHER, SELFPAY | PROVIDERS: PCP Physician Assistant; Visit Provider Physician Assistant | DX: I10 Essential (primary) hypertension (principal); F41.1 Generalized anxiety disorder; G43.909 Migraine, unspecified, not intractable, without status migrainosus; E66.813 Obesity, class 3; M79.671 Pain in right foot; R10.2 Pelvic and perineal pain; D50.9 Iron deficiency anemia, unspecified; Z68.43 Body mass index [BMI] 50.0-59.9, adult | CPT/HCPCS: 96127 ==

== ENCOUNTER 2025-04-21 13:53 | Outpatient (AMB) | payer OTHER, SELFPAY ==
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
--- OUTSIDE RECORDS SUMMARY | 2025-04-21 14:26 | XMS_ITS ---
Author Name [facility] Organization Unknown History of Medication Use Medication Directions Dispensed Refills Start Date End Date Stat elagolix (Orilissa) 150 mg tablet Take 150 mg by mouth in the morning. 04/11/2025 active atogepant 60 mg tablet Take 60 mg by mouth in the morning. 12/02/2024 active NIFEdipine CC (ADALAT CC) 60 mg 24 hr tablet Take 60 mg by mouth. 06/19/2023 active cetirizine (ZyrTEC) 10 mg tablet 0 Refills, Maintenance, 02/21/23 8:22:00 EDT, Partial fill upon patient request if the prescription is for a schedule II opioid drug. 02/21/2023 active albuterol HFA (PROAIR HFA) 90 mcg/actuation inhaler Inhale. 01/16/2023 active hyoscyamine (LEVSIN) 0.125 mg/5 mL elixir Take 0.125 mg by mouth every 4 (four) hours. active levonorgestreL (MIRENA) intrauterine device 1 Intra Uterine Device by intrauterine route Every 8 Years. active magnesium (MAGTAB) 84 mg tablet extended release CR tablet Take 84 mg by mouth in the morning. active ohvhlcvoybif-Qt-elrk- minerals tablet Take by mouth. activ e omeprazole (PriLOSEC) 20 mg capsule Take 20 mg by mouth in the morning. active ondansetron (ZOFRAN) 4 mg tablet Take by mouth every 8 (eight) hours as needed for nausea or vomiting. PRN active propranolol LA (INDERAL LA) 80 mg 24 hr capsule Take 80 mg by mouth in the morning. active riboflavin, vitamin B2, 400 mg tablet Take by mouth. act anuja rizatriptan ORTHODONTIC TECHNICIAN (MAXALT-ORTHODONTIC TECHNICIAN) 10 mg disintegrating tablet Take 10 mg by mouth once as needed for migraine. May repeat in 2 hours if unresolved. Do not exceed 30 mg in 24 hours. active ZOLMitriptan (ZOMIG) 5 mg tablet Take 5 mg by mouth once as needed for migraine. May repeat in 2 hours if unresolved. Do not exceed 10 mg in 24 hours. active Encounters Encounter Type Encounter Reason Primary Diagnosis Location Date Ambulatory [facility] 03/28/2025 Ambulatory Pelvic and perineal pain Pelvic and perineal pain [facility] 03/28/2025 Care Team Organization Name Specialty Phone Email Start Date End Da te [facility] BOB DICKINSON Primary Care 2024
--- OUTSIDE RECORDS SUMMARY | 2025-04-21 14:26 | XMS_ITS | Clinical Summary ---
Author Organization [facility] Address [address] [place] [address] Care Team Providers Care Systems Project Manager Name Role Phone Maciej Curran Primary Care Provider Allergies Active Allergy Reactions Criticality Noted Date Comments Amitriptyline Other (see comments),Palpitation s Low 03/28/2025 Other Reaction(s): Night terrors, Visual hallucinations Codeine GI intolerance,Itching,R abiodun Low 11/18/2021 Other Reaction(s): Persistent vomiting Rash and vomit Duloxetine Other (see comments) 03/28/2025 Other Reaction(s): Tardive dyskinesia Nortriptyline Other (see comments) 03/28/2025 Other Reaction(s): Joint pain Other 11/18/2021 Dyskinesia Oxycodone Anaphylaxis,Unknown High 05/26/2016 Other Reaction(s): shortness of breath, rash Sumatriptan Hives,Other (see comments) 01/21/2022 Topiramate Other (see comments),Palpitation s,Shortness of breath,Tinnitus High 01/21/2022 Medications albuterol HFA (PROAIR HFA) 90 mcg/actuation inhaler Inhale. 01/17/20 23 Active cetirizine (ZyrTEC) 10 mg tablet 0 Refills, Maintenance, 02/21/23 8:22:00 EDT, Partial fill upon patient request if the prescription is for a schedule II opioid drug. 02/22/20 23 Active hbujtbnsvnrj-Js-qr on-minerals tablet Take by mouth. Active NIFEdipine CC (ADALAT CC) 60 mg 24 hr tablet Take 60 mg by mouth. 08/28/20 23 Active zinc citrate, zinc oxide 50 mg tablet Take by mouth. Active atogepant 60 mg tablet Take 60 mg by mouth in the morning. 12/02/19 25 Active hyoscyamine (LEVSIN) 0.125 mg/5 mL elixir Take 0.125 mg by mouth every 4 (four) hours. Active levonorgestreL (MIRENA) intrauterine device 1 Intra Uterine Device by intrauterine route Every 8 Years. Active magnesium (MAGTAB) 84 mg tablet extended release CR tablet Take 84 mg by mouth in the morning. Active omeprazole (PriLOSEC) 20 mg capsule Take 20 mg by mouth in the morning. Active ondansetron (ZOFRAN) 4 mg tablet Take by mouth every 8 (eight) hours as needed for nausea or vomiting. PRN Active propranolol LA (INDERAL LA) 80 mg 24 hr capsule Take 80 mg by mouth in the morning. Active riboflavin, vitamin B2, 400 mg tablet Take by mouth. Activ e rizatriptan MUCK BOSS (MAXALT-MUCK BOSS) 10 mg disintegrating tablet Take 10 mg by mouth once as needed for migraine. May repeat in 2 hours if unresolved. Do not exceed 30 mg in 24 hours. Active ZOLMitriptan (ZOMIG) 5 mg tablet Take 5 mg by mouth once as needed for migraine. May repeat in 2 hours if unresolved. Do not exceed 10 mg in 24 hours. Active elagolix (Orilissa) 150 mg tablet Take 150 mg by mouth in the morning. 30 tablet 11 04/11/20 25 Active Encounters Date Type Department Care Team Description 04/11/2025 Orders Only [facility] [place] [address] [place] [address] Sarah Hamilton MD 03/28/2025 10:30 AM EDT Office Visit [facility] [place] [address] [place] [address] Sarah Hamilton MD Pelvic pain in female (Primary Dx) 03/28/2025 10:25 AM EDT Ancillary Procedure [facility] [address] [place] [address] Sarah Hamilton MD from Last 3 Months Family History Medical History Relation Comments Hyperlipidemia Father Cancer Maternal Grandfather Cancer Maternal Grandmother Migraines Maternal Grandmother Hypertension Mother Rheum arthritis Mother Diabetes Mother's Brother Breast cancer Paternal Grandmother Relation Status Comments Father Alive Maternal Grandfather Alive Maternal Grandmother Alive Mother Alive Mother's Brother Alive Paternal Grandmother Alive Social History Tobacco Use Types Packs/Day Years Used Date Smoking Tobacco: Never Smokeless Tobacco: Never Tobacco Cessation:Counseling Given: Not Answered Alcohol Use Standard Drinks/Week Comments Yes 0 (1 standard drink = 0.6 oz pure alcohol) it's about once every couple of months Humiliation, Afraid, Rape, and Kick questionnair e Answer Date Recorded Within the last year, have y ou been afraid of your partner or ex-partner? No 03/28/2025 Within the last year, have y ou been humiliated or emotionally abused in other ways by your partner or ex-partner? No Within the last year, have y ou been kicked, hit, slapped, or otherwise physically hurt by your partner or ex-partner? No 03/28/2025 Within the last year, have y ou been raped or forced to have any kind of sexual activity by your partner or ex-partner? No 03/28/2025 PHQ-2 Answer Date Recorded PHQ-2 Score 0 03/28/2025 Comments Unknown Sex and Gender Information Value Date Recorded Sex Assigned at Not on file Legal Sex Female 12:01 PM EST Gender Identity Not on file Sexual Orientation Not on file COVID-19 Exposure Response Date Recorded In the last 10 days, have yo u been in contact with someone who was confirmed or suspected to have Coronavirus/COVID-19? No / Unsure 03/28/2025 7:38 AM EDT Last Filed Vital Signs Vital Sign Reading Time Taken Comments Blood Pressure 148/82 03/28/2025 10:39 AM EDT Pulse 69 03/28/2025 10:39 AM EDT Temperature - - Respiratory Rate - - Oxygen Saturation - - Inhaled Oxygen Concentration - - Weight 151 kg (331 lb 12.8 oz) 03/28/2025 10:39 AM EDT Height - - Body Mass Index - - Plan of Treatment Health Maintenance Due Date Last Done Comments HIV Screening 1988 Hepatitis C Screening 2006 Hepatitis B Vaccines (1 of 3 - 19+ 3-dose series) 2007 Pneumococcal Vaccine: Pediatrics (0 to 5 Years) and At-Risk Patients (6 to 49 Years) (1 of 2 - PCV) 2007 Pap Smear 2009 Cervical Cancer Screening 2018 HPV/Cotest 2018 COVID-19 Vaccine (4 - season) 2024 10/21/2021, 11/04/2020, 10/14/2020 Influenza Vaccine (Season Ended) 2025 07/18/2023, 08/19/2021, 08/07/2020, Additional history exists DTaP,Tdap,and Td Vaccines (2 - Td or Tdap) 05/16/2033 05/16/2023 Zoster Vaccines (1 of 2) 2038 HPV [...] on patient's age to complete this topic Procedures Procedure Name Priority Date/Time Associated Diagnosis Comments FLEXIBLE BABYSITTER ULTRASOUND Routine 03/28/2025 10:24 AM EDT Pelvic pain in female from Last 3 Months Results * FLEXIBLE BABYSITTER Ultrasound (03/28/2025 10:24 AM EDT) Anatomical Region Laterality Modality Body Ultrasound Narrative 03/28/2025 4:55 PM EDT Ultrasound Result: Transvaginal ultrasound revealed an anteverted uterus measuring 11.06 x 4.51 x 4.83 cm with an endometrial stripe measuring 5.5 mm. Right ovary measuring 3.45 x 1.86 x 3.34 cm left ovary measuring 2.68 x 2.28 x 3.17 cm. Normal posterior slide sign. Some mild perhaps bladder adhesion to the uterus anterior otherwise normal anterior slide sign. No free fluid masses or cysts were seen. us Sarah Hamilton MD IMG OB US PROCEDURES Final Result from Last 3 Months Insurance ANTHEM - OUT OF STATE Care Teams Systems Project Manager Relationship Specialty Start Date End Date Maciej Curran PA [address] [place] [id number] PCP - General Primary Care 12/26/24
--- OUTSIDE RECORDS SUMMARY | 2025-04-21 14:26 | XMS_ITS | Encounter Summary ---
Author Organization [facility] Address [address] [place] [address] Care Team Providers Care Geriatric Aide Name Role Phone Pcp, Heidi Primary Care Provider Jonny Faust MD Primary Care Provider [phone] Encounter Details Date Type Department Care Team (Late st Contact Info) Description 01/20/2016 Scanned Document [facility] [address] [place] [address] Provider, Generic Social History Tobacco Use Types [...] on filedocumented in this encounter Care Teams Geriatric Aide Relationship Specialty Start Date End Date Pcp, No PCP - General General Medicine 01/18/16 06/16/19 Jonny Joseph MD [address] [place] [address] PCP - General Family Medicine 06/17/19 documented as of this encounter
== END 2025-04-21 15:09 | disposition home or self-care (01) ==
LOC: HO.HGI 13:53
PROVIDERS: PCP Physician Assistant; Visit Provider Internal Medicine
DX: K58.2 Mixed irritable bowel syndrome (principal); R10.9 Unspecified abdominal pain; R19.8 Other specified symptoms and signs involving the digestive system and abdomen; N80.9 Endometriosis, unspecified
CPT/HCPCS: 99214

== ENCOUNTER 2025-04-30 15:07 | Outpatient (REF) | payer OTHER, SELFPAY ==
--- NOTE | ~2025-04-30 | XR_ITS ---
CLINICAL HISTORY: E66.01 - Morbid (severe) obesity due to excess calories 2 view chest x-ray Comparison: None provided Findings: The lungs are clear. Normal size heart. No acute fracture. IMPRESSION: 1. No acute findings. This document has been electronically signed by: Lashawn Rodriguez MD on 05/01/2025 09:57:18
--- OUTSIDE RECORDS SUMMARY | 2025-04-30 15:27 | XMS_ITS | Encounter Summary ---
Author Organization [facility] Address [address] [place] [address] Care Team Providers Care Medical Research Associate Name Role Phone Pcp, Heidi Primary Care Provider Jonny Faust MD Primary Care Provider [phone] Encounter Details Date Type Department Care Team (Late st Contact Info) Description 01/20/2016 Scanned Document [facility] [address] [place] [address] Provider, Generic Social History Tobacco Use Types [...] on filedocumented in this encounter Care Teams Medical Research Associate Relationship Specialty Start Date End Date Pcp, No PCP - General General Medicine 01/18/16 06/16/19 Jonny Joseph MD [address] [place] [address] PCP - General Family Medicine 06/17/19 documented as of this encounter
--- OUTSIDE RECORDS SUMMARY | 2025-04-30 15:27 | XMS_ITS | Clinical Summary ---
Author Organization [facility] Address [address] [place] [address] Care Team Providers Care Polysomnograph Tech Name Role Phone Maciej Curran Primary Care [...] schedule II opioid drug. 02/22/20 23 Active zywzhpqkeitw-Er-bk on-minerals tablet Take by mouth. Active NIFEdipine [...] tablet Take by mouth. Activ e rizatriptan OVERAGE SHORTAGE AND DAMAGE CLERK (MAXALT-OVERAGE SHORTAGE AND DAMAGE CLERK) 10 mg disintegrating tablet Take 10 mg [...] Encounters Date Type Department Care Team Description 04/23/2025 Orders Only [facility] [place] [address] [place] [address] Sarah Hamilton MD 04/11/2025 Orders Only [facility] [place] [address] [place] [address] Sarah Hamilton MD 03/28/2025 10:30 AM EDT Office Visit [facility] [place] [address] [place] [address] Sarah Hamilton MD Pelvic pain in female (Primary Dx) 03/28/2025 10:25 AM EDT Ancillary Procedure [facility] Department of Ultrasound Imaging [address] [place] [address] Sarah Hamilton MD from Last 3 Months [...] Mass Index - - Plan of Treatment Upcoming Encounters Date Type Department Care Team (Late st Contact Info) Description 07/01/2025 2:30 PM EDT Scheduled Telephone Visit [facility] Department of Women's Health Outpatient [place] [address] [place] [address] Sarah Hamilton MD [address]-OBSTETRICS/ [place] [address] Health Maintenance Due Date Last Done Comments HIV Screening 1988 Hepatitis C Screening 2006 Hepatitis B Vaccines (1 of 3 - 19+ 3-dose series) 2007 Pneumococcal Vaccine: Pediatrics (0 to 5 Years) and At-Risk Patients (6 to 49 Years) (1 of 2 - PCV) 2007 Pap Smear 2009 Cervical Cancer Screening 2018 HPV/Cotest 2018 COVID-19 Vaccine ( season) 2024 10/21/2021, 11/04/2020, 10/14/2020 Influenza Vaccine (#1) 2025 3, 08/19/2021, 08/07/2020, Additional history exists DTaP,Tdap,and Td [...] Procedure Name Priority Date/Time Associated Diagnosis Comments MINE SHIFTER ULTRASOUND Routine 03/28/2025 10:24 AM EDT Pelvic pain in female from Last 3 Months Results * MINE SHIFTER Ultrasound (03/28/2025 10:24 AM EDT) Anatomical Region [...] ANTHEM - OUT OF STATE Care Teams Polysomnograph Tech Relationship Specialty Start Date End Date Maciej Curran PA [address] [place] [id number] PCP - General Primary Care 12/26/24
== END 2025-04-30 15:08 | disposition home or self-care (01) ==
LOC: HO.XRAY 15:07
PROVIDERS: Visit Provider Surgery
DX: E66.01 Morbid (severe) obesity due to excess calories (principal); K21.9 Gastro-esophageal reflux disease without esophagitis; I10 Essential (primary) hypertension
CPT/HCPCS: 71046

== ENCOUNTER → 2025-04-30 15:08 | Outpatient (BNV) | payer OTHER, SELFPAY | PROVIDERS: Visit Provider Radiology Diagnostic Radiology | DX: E66.01 Morbid (severe) obesity due to excess calories (principal) | CPT/HCPCS: 71046 ==

== ENCOUNTER → 2025-05-02 10:06 | Outpatient (REF) | payer OTHER, SELFPAY ==
--- NOTE | 2025-05-02 10:14 | ECG_ITS ---
Test Reason : MOR OBS Blood Pressure : */* mmHG Vent. Rate : 62 BPM Atrial Rate : 62 BPM P-R Int : 194 ms QRS Dur : 86 ms QT Int : 432 ms P-R-T Axes : 39 -9 -6 degrees QTcB Int : 438 ms Normal sinus rhythm Minimal voltage criteria for LVH, may be normal variant ( R in aVL ) Nonspecific ST abnormality Abnormal ECG When compared with ECG of 14-Feb-2024 14:50, Vent. rate has decreased by 37 bpm Referred By: Sarthak Gatica Electronically Signed By: Brennan Pugh
--- OUTSIDE RECORDS SUMMARY | 2025-05-02 10:36 | XMS_ITS | Clinical Summary ---
Author Organization [facility] Address [address] [place] [address] Care Team Providers Care Collar Closer Lockstitch Name Role Phone Maciej Curran Primary Care [...] schedule II opioid drug. 02/22/20 23 Active xjdpxzjcbofe-Bo-so on-minerals tablet Take by mouth. Active NIFEdipine [...] tablet Take by mouth. Activ e rizatriptan FEEDER WORKER POWER UNIT OPERATOR (MAXALT-FEEDER WORKER POWER UNIT OPERATOR) 10 mg disintegrating tablet Take 10 mg [...] Department Care Team Description 04/23/2025 Orders Only [facility] [place] [address] [place] [address] Sarah Hamilton MD 04/11/2025 Orders Only [facility] [place] [address] [place] [address] Sarah Hamilton MD 03/28/2025 10:30 AM EDT Office Visit [facility] [place] [address] [place] [address] Sarah Hamilton MD Pelvic pain in female (Primary Dx) 03/28/2025 10:25 AM EDT Ancillary Procedure [facility] Department of Ultrasound Imaging [address] [place] [address] Sarah Hamilton MD from Last 3 Months [...] 07/01/2025 2:30 PM EDT Scheduled Telephone Visit [facility] Department of Women's Health Outpatient [place] [address] [place] [address] Sarah Hamilton MD [address]-OBSTETRICS/ [place] [address] Health Maintenance Due Date Last Done Comments [...] Procedure Name Priority Date/Time Associated Diagnosis Comments HOLTER TECHNICIAN ULTRASOUND Routine 03/28/2025 10:24 AM EDT Pelvic pain in female from Last 3 Months Results * HOLTER TECHNICIAN Ultrasound (03/28/2025 10:24 AM EDT) Anatomical Region [...] ANTHEM - OUT OF STATE Care Teams Collar Closer Lockstitch Relationship Specialty Start Date End Date Maciej Curran PA [address] [place] [id number] PCP - General Primary Care 12/26/24
--- OUTSIDE RECORDS SUMMARY | 2025-05-02 10:36 | XMS_ITS | Encounter Summary ---
Author Organization [facility] Address [address] [place] [address] Care Team Providers Care Life Skills Instructor Name Role Phone Pcp, Heidi Primary Care Provider Jonny Faust MD Primary Care Provider [phone] Encounter Details Date Type Department Care Team (Late st Contact Info) Description 01/20/2016 Scanned Document [facility] [address] [place] [address] Provider, Generic Social History Tobacco Use Types [...] on filedocumented in this encounter Care Teams Life Skills Instructor Relationship Specialty Start Date End Date Pcp, No PCP - General General Medicine 01/18/16 06/16/19 Jonny Joseph MD [address] [place] [address] PCP - General Family Medicine 06/17/19 documented as of this encounter
== END ==
LOC: HO.CARD 10:06
PROVIDERS: PCP Physician Assistant; Visit Provider Surgery
DX: I10 Essential (primary) hypertension (principal); E66.01 Morbid (severe) obesity due to excess calories; K21.9 Gastro-esophageal reflux disease without esophagitis
CPT/HCPCS: 93005

== ENCOUNTER → 2025-05-02 10:14 | Outpatient (BNV) | payer OTHER, SELFPAY | PROVIDERS: PCP Physician Assistant; Visit Provider Internal Medicine Cardiovascular Disease | DX: R94.31 Abnormal electrocardiogram [ECG] [EKG] (principal); E66.01 Morbid (severe) obesity due to excess calories | CPT/HCPCS: 93010 ==

== ENCOUNTER 2025-05-05 08:37 | Outpatient (REF) | payer OTHER, SELFPAY ==
--- OUTSIDE RECORDS SUMMARY | 2025-05-05 08:44 | XMS_ITS | Encounter Summary ---
Author Organization [facility] Address [address] [place] [address] Care Team Providers Care Cullet Washer Name Role Phone Pcp, Heidi Primary Care Provider Jonny Faust MD Primary Care Provider [phone] Encounter Details Date Type Department Care Team (Late st Contact Info) Description 01/20/2016 Scanned Document [facility] [address] [place] [address] Provider, Generic Social History Tobacco Use Types [...] on filedocumented in this encounter Care Teams Cullet Washer Relationship Specialty Start Date End Date Pcp, No PCP - General General Medicine 01/18/16 06/16/19 Jonny Joseph MD [address] [place] [address] PCP - General Family Medicine 06/17/19 documented as of this encounter
--- OUTSIDE RECORDS SUMMARY | 2025-05-05 08:44 | XMS_ITS | Clinical Summary ---
Author Organization [facility] Address [address] [place] [address] Care Team Providers Care Independent Crop Consultant Name Role Phone Maciej Curran Primary Care [...] schedule II opioid drug. 02/22/20 23 Active wlsbtuvcisve-Yl-fq on-minerals tablet Take by mouth. Active NIFEdipine [...] tablet Take by mouth. Activ e rizatriptan SWITCHBOARD INSPECTOR (MAXALT-SWITCHBOARD INSPECTOR) 10 mg disintegrating tablet Take 10 mg [...] Team Description 04/23/2025 Orders Only [facility] [place] [address] [place] [address] Sarah Hamilton MD 04/11/2025 Orders Only [facility] [place] [address] [place] [address] Sarah Hamilton MD 03/28/2025 10:30 AM EDT Office Visit [facility] [place] [address] [place] [address] Sarah Hamilton MD Pelvic pain in female (Primary Dx) 03/28/2025 10:25 AM EDT Ancillary Procedure [facility] Department of Ultrasound Imaging [address] [place] [address] Sarah Hamilton MD from Last 3 Months [...] 07/01/2025 2:30 PM EDT Scheduled Telephone Visit [facility] Department of Women's Health Outpatient [place] [address] [place] [address] Sarah Hamilton MD [address]-OBSTETRICS/ [place] [address] Health Maintenance Due Date Last Done Comments [...] Procedure Name Priority Date/Time Associated Diagnosis Comments CONVERSION MAN ULTRASOUND Routine 03/28/2025 10:24 AM EDT Pelvic pain in female from Last 3 Months Results * CONVERSION MAN Ultrasound (03/28/2025 10:24 AM EDT) Anatomical Region [...] ANTHEM - OUT OF STATE Care Teams Independent Crop Consultant Relationship Specialty Start Date End Date Maciej Curran PA [address] [place] [id number] PCP - General Primary Care 12/26/24
[2025-05-05 08:56] LABS: MANUAL DIFF FLAG NO
[2025-05-05 09:10] LABS: Hematocrit 38.8 % (37.0-47.0); Hemoglobin 12.5 g/dl (12.0-16.0); Imm Gran Abs Auto 0.03 X10*3/uL (0.00-0.03); Imm Gran Pct Auto 0.3 % (0.0-0.4); Lymphocytes Absolute Auto 2.5 X10*3/uL (1.2-4.9); Mean Corpuscular HGB Conc 32.2 g/dl (31.0-35.0); Mean Corpuscular Hemoglobin 26.4 pg (27.0-33.0); Mean Corpuscular Volume 82.0 fL (80.0-98.0); NRBC Abs Auto 0.000 X10*3/uL (0.0-0.012); NRBC Pct Auto 0.0 /100WBC (0.0-0.2); Platelet Count 369 X10*3/uL (160-400); Red Blood Count 4.73 X10*6/uL (4.20-5.50); White Blood Count 9.9 X10*3/uL (4.8-10.8)
[2025-05-05 09:15] LABS: Hemoglobin A1C 127.3945 umol/L; Total Hemoglobin (HGBA1C) 3225.7209 umol/L
[2025-05-05 09:43] LABS: Alanine Aminotransferase 24 U/L (0-31); Albumin Level 4.3 g/dL (3.5-5.0); Alkaline Phosphatase 64 U/L (39-117); Anion Gap 10 (12-20); Aspartate Amino Transferase 17 U/L (5-31); Blood Urea Nitrogen 15 mg/dL (9-16); Calcium 9.3 mg/dL (8.4-10.2); Carbon Dioxide 24 mmol/L (22-29); Chloride 110 mmol/L (96-108); Cholesterol 138 mg/dL (<200); Estimated Glomerular Filt Rate > 60; HDL Cholesterol 36 mg/dL (>40); Iron 31 mcg/dL (30-160); Percent Iron Saturation 11 % (15-50); Potassium 4.1 mmol/L (3.3-5.1); Sodium 140 mmol/L (135-145); Total Iron Binding Capacity 293 mcg/dL (228-428); Total Protein 7.1 g/dL (6.5-8.0); Triglycerides 108 mg/dL (<150); Unsaturated Iron Binding 262 ug/dL
[2025-05-05 10:03] LABS: Ferritin 40 ng/mL (10-122)
[2025-05-05 10:07] LABS: Folate 8.1 ng/mL (> or = 4.0); Vitamin B12 470 pg/mL (200-900)
== END 2025-05-05 08:38 | disposition home or self-care (01) ==
LOC: HO.LAB 08:37
PROVIDERS: PCP Physician Assistant; Visit Provider Surgery
DX: E66.01 Morbid (severe) obesity due to excess calories (principal); I10 Essential (primary) hypertension; K21.9 Gastro-esophageal reflux disease without esophagitis
CPT/HCPCS: 36415; 80053; 80061; 82306; 82607; 82728; 82746; 83036; 83525; 83540; 84425; 84443; 84590; 84630; 85025; 86140

== ENCOUNTER 2025-05-13 13:19 | Outpatient (AMB) | payer OTHER, SELFPAY ==
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
--- OUTSIDE RECORDS SUMMARY | 2025-05-13 14:27 | XMS_ITS | Clinical Summary ---
Author Organization [facility] Address [address] [place] [id number] Care Team Providers Care Technical Training Manager Name Role Phone Maciej Curran Primary [...] schedule II opioid drug. 02/22/20 23 Active esqbpygypnfb-Pi-vv on-minerals tablet Take by mouth. Active NIFEdipine [...] tablet Take by mouth. Activ e rizatriptan FULFILLMENT REPRESENTATIVE (MAXALT-FULFILLMENT REPRESENTATIVE) 10 mg disintegrating tablet Take 10 mg [...] Team Description 04/23/2025 Orders Only [facility] [place] [address] [place] [address] Sarah Hamilton MD 04/11/2025 Orders Only [facility] [place] [address] [place] [address] Sarah Hamilton MD 03/28/2025 10:30 AM EDT Office Visit [facility] [place] [address] [place] [address] Sarah Hamilton MD Pelvic pain in female (Primary Dx) 03/28/2025 10:25 AM EDT Ancillary Procedure [facility] Department of Ultrasound Imaging [address] [place] [address] Sarah Hamilton MD from Last 3 Months [...] 07/01/2025 2:30 PM EDT Scheduled Telephone Visit [facility] Department of Women's Health [facility] [place] [address] [place] [address] Sarah Hamilton MD [address]-OBSTETRICS/ [place] [address] Health Maintenance Due Date Last Done Comments [...] Procedure Name Priority Date/Time Associated Diagnosis Comments PROPELLER ENGINEER ULTRASOUND Routine 03/28/2025 10:24 AM EDT Pelvic pain in female from Last 3 Months Results * PROPELLER ENGINEER Ultrasound (03/28/2025 10:24 AM EDT) Anatomical Region [...] ANTHEM - OUT OF STATE Care Teams Technical Training Manager Relationship Specialty Start Date End Date Maciej Curran PA [address] [place] [id number] PCP - General Primary Care 12/26/24
--- OUTSIDE RECORDS SUMMARY | 2025-05-13 14:27 | XMS_ITS | Encounter Summary ---
Author Organization [facility] Address [address] [place] [address] Phone Care Team Providers Care Network Controller Name Role Phone Maciej Curran Primary Care Provider + Encounter Details Date Type Department Care Team (Late st Contact Info) Description 12/04/2024 Telephone [facility] OBGYN Gynecology Resident [address] [place], [place] [id number] Amy Oleary [place], [place] [address] [place] [address] [email or web address] Social History Tobacco Use Types Packs/Day Years Used Date Smoking Tobacco: Never Assessed Education Answer Date Recorded Are you interested in more education? Not on allison e 05/07/2024 Are you concerned about learning? Not on file 05/07/2024 No 05/07/2024 No 05/07/2024 Digital Access Answer Date Recorded No 05/07/2024 No 05/07/2024 Reliable internet access at home? Not on file 05/07/2024 Device with a working camera? Not on file Comments Unknown Sex and Gender Information Value Date Recorded Sex Assigned at Female 05/16/2024 8:58 AM EDT Legal Sex Female 3:07 PM EDT Gender Identity Female 05/16/2024 8:58 AM EDT Sexual Orientation Choose not to disclose 2023 8:58 AM EDT documented as of this encounter Plan of Treatment Upcoming Encounters Date Type Department Care Team (Late st Contact Info) Description 06/16/2025 3:00 PM EDT Office Visit [facility] Neurology [address] [place] [address] Alessandra Deal FNP [address] [facility], 2nd [place] [address] documented as of this encounter Visit Diagnoses Not on filedocumented in this encounter Care Teams Network Controller Relationship Specialty Start Date End Date Maciej Curran PA [address] [place] [address] PCP - General Physician It Training Specialist 05/07/24 documented as of this encounter Additional Source Comments The information contained in this document represents components of the legal health record. It is not the complete legal health record.[facility]
--- OUTSIDE RECORDS SUMMARY | 2025-05-13 14:27 | XMS_ITS | Encounter Summary ---
Author Organization [facility] Address [address] [place] [address] Care Team Providers Care Building Official Name Role Phone Pcp, Heidi Primary Care Provider Jonny Faust MD Primary Care Provider [phone] Encounter Details Date Type Department Care Team (Late st Contact Info) Description 01/20/2016 Scanned Document [facility] [address] [place] [address] Provider, Generic Social History Tobacco Use Types [...] on filedocumented in this encounter Care Teams Building Official Relationship Specialty Start Date End Date Pcp, No PCP - General General Medicine 01/18/16 06/16/19 Jonny Joseph MD [address] [place] [address] PCP - General Family Medicine 06/17/19 documented as of this encounter
== END 2025-05-13 14:09 | disposition home or self-care (01) ==
LOC: HO.HBST 13:19
PROVIDERS: PCP Physician Assistant; Visit Provider Counselor Mental Health
DX: F41.9 Anxiety disorder, unspecified (principal); F43.9 Reaction to severe stress, unspecified; Z71.89 Other specified counseling
CPT/HCPCS: 90791

== ENCOUNTER → 2025-05-19 09:00 | Outpatient (REF) | payer OTHER, SELFPAY ==
--- NOTE | 2025-05-19 09:03 | CA_ITS ---
Transthoracic Echocardiogram Patient (Last, First, Middle): Carol Wong M Gender: Female Date of : 1990 Age: 34 Procedure Date: 05/19/2025 Procedure Type: Transthoracic Echocardiogram Location: OP Height: 162.56 cm Weight: 145.15 kg BSA: 2.39 m2 Heart Rate: bpm BP: 124 / 80 mmHg Shear Grinder Operator Helper: Referring MD: Sarthak Gatica MD Highway Research Engineer: Castro Mahoney MD Symptoms: R94.31 - Abnormal electrocardiogram [ECG] [EKG] Study Quality: Adequate ECG Rhythm: Sinus Conclusions: - Essentially normal study Findings Left Ventricle Normal left ventricular size, thickness, and systolic function. The visually estimated ejection fraction is between 55-60%. Diastolic function is normal for age. Right Ventricle Normal right ventricular cavity size and systolic function. Atria Both atria are normal in size. There is no evidence of interatrial shunt. Aortic Valve The aortic valve structure and function is likely normal. There is no aortic valve stenosis. There is no aortic valve regurgitation. Mitral Valve Normal mitral valve structure and function. There is no mitral valve regurgitation. There is no mitral valve stenosis. Tricuspid Valve Normal tricuspid valve structure. There is trace tricuspid valve regurgitation. The right ventricular systolic pressure is normal. The right ventricular systolic pressure is 19 mmHg. Normal right atrial pressure. There is no evidence of pulmonary hypertension. Great Vessels All visible segments of the aorta are normal in size. The pulmonary artery was not well visualized. There is no dilatation of the ascending aorta measuring 2.90 cm. Venous The inferior vena cava is normal in size and collapses greater than 50% with inspiration. Pericardium/Pleural There is no evidence of pericardial effusion. Prior Study Comparison No prior study available for comparison. Measurements 2D Linear Measurements IVSd: 1.22 0.6-0.9/0.6-1.0 cm LVIDd: 4.78 3.9-5.3/4.2-5.9 cm LVIDd Index: 2.00 2.4-3.2/2.2-3.1 cm/m2 LVIDs: 3.13 2.0-3.6 cm LVPWd: 1.21 0.7-1.1 cm Ao Root: 3.10 2.1-3.5 cm LA Diam: 4.20 2.7-3.8/3.0-4.0 cm LAIDs Index: 1.76 1.5-2.3 cm/m2 LV Mass: 276.21 67-162/88-224 g LV Mass Index: 115.57 43-95/49-115 g/m2 LVOT Diam: 2.30 3.0+(-)1.3 cm 2D Systolic Function EF 4C: 54.50 >55% EF 2C: 56.70 >55% EF BiP: 55.90 >55% Mitral Valve MV Pk E: 0.77 MV PK A: 0.54 MV Decel Time: 214.00 E/A: 1.40 E'Lateral: 18.80 E'Medial: 9.46 E/E' Med: 8.20 E/E' Lat: 4.10 PHT: 63.00 MVA PHT: 3.49 Decel Douglas: 3.61 Aortic Valve AoV Pk Isaías: 1.82 AoV Mn Isaías: 1.17 AoV VTI: 0.44 AoV Pk Grad: 13.00 Aov Mn Grad: 7.00 JOE Cont.VTI: 2.47 LVOT LVOT Pk Isaías: 1.07 LVOT Mn Isaías: 0.75 LVOT VTI: 0.26 LVOT Pk Grad: 5.00 LVOT Mn Grad: 3.00 LVOT Diam: 2.30 LVOT Area: 4.15 Diastolic Function MV Pk E: 0.77 MV Pk A: 0.54 E/A: 1.40 E'Medial: 9.46 E/E' Med: 8.20 E' Laterial: 18.80 E/E' Lat: 4.10 Right Ventricle TAPSE (mm): 24.00 TVS' Isaías: 14.00 Tricuspid Valve TR Pk Isaías: 1.97 TR Pk Grad: 16.00 RA Press: 3.00 RVSP: 19.00 Great Vessels Aorta Ao Root-2D: 3.10 2.0-3.7 cm Ao Asc: 2.90 2.1-3.4 cm Pulmonary Valve PV Pk Isaías: 1.10 Peak PV Grad: 5.00 Updated in Other Vendor System with Status of Final Castro Mahoney MD electronically signed on 05/19/2025 10:08:52 AM with status of Final
--- OUTSIDE RECORDS SUMMARY | 2025-05-19 09:35 | XMS_ITS | Encounter Summary ---
Author Organization [facility] Address [address] [place] [address] Care Team Providers Care Stretcher Drier Operator Name Role Phone Pcp, Heidi Primary Care Provider Jonny Faust MD Primary Care Provider [phone] Encounter Details Date Type Department Care Team (Late st Contact Info) Description 01/20/2016 Scanned Document [facility] [address] [place] [address] Provider, Generic Social History Tobacco Use Types [...] on filedocumented in this encounter Care Teams Stretcher Drier Operator Relationship Specialty Start Date End Date Pcp, No PCP - General General Medicine 01/18/16 06/16/19 Jonny Joseph MD [address] [place] [address] PCP - General Family Medicine 06/17/19 documented as of this encounter
--- OUTSIDE RECORDS SUMMARY | 2025-05-19 09:35 | XMS_ITS | Clinical Summary ---
Author Organization [facility] Address [address] [place] [id number] Care Team Providers Care Bingo Floater Name Role Phone Maciej Curran Primary Care [...] schedule II opioid drug. 02/22/20 23 Active [id number]-Iq-qr on-minerals tablet Take by mouth. Active NIFEdipine [...] tablet Take by mouth. Activ e rizatriptan DNA ANALYST (MAXALT-DNA ANALYST) 10 mg disintegrating tablet Take 10 mg [...] Department Care Team Description 04/23/2025 Orders Only [facility] [place] [address] [place] [address] Sarah Hamilton MD 04/11/2025 Orders Only [facility] [place] [address] [place] [address] Sarah Hamilton MD 03/28/2025 10:30 AM EDT Office Visit [facility] [place] [address] [place] [address] Sarah Hamilton MD Pelvic pain in female (Primary Dx) 03/28/2025 10:25 AM EDT Ancillary Procedure [facility] Ul[facility]ound [facility] [address] [place] [address] Sarah Hamilton MD from Last 3 Months [...] 07/01/2025 2:30 PM EDT Scheduled Telephone Visit [facility] Out[facility] [place] [address] [place] [address] Sarah Hamilton MD [address]-OBSTETRICS/ [place] [address] Health Maintenance Due Date Last Done Comments [...] Procedure Name Priority Date/Time Associated Diagnosis Comments LINE PILOT ULTRASOUND Routine 03/28/2025 10:24 AM EDT Pelvic pain in female from Last 3 Months Results * LINE PILOT Ultrasound (03/28/2025 10:24 AM EDT) Anatomical Region [...] ANTHEM - OUT OF STATE Care Teams Bingo Floater Relationship Specialty Start Date End Date Maciej Curran PA [address] [place] [id number] PCP - General Primary Care 12/26/24
--- OUTSIDE RECORDS SUMMARY | 2025-05-19 09:35 | XMS_ITS | Encounter Summary ---
Author Organization [facility] Address [address] [place] [phone] Phone Care Team Providers Care Airport Electrician Name Role Phone Maciej Curran Primary Care Provider + Encounter Details Date Type Department Care Team (Late st Contact Info) Description 12/04/2024 Telephone [facility] OBGYN Gynecology Resident [address] [place], [place] [id number] Amy Oleary [place], [place] [address] [place] [address] [email or web address] Social History Tobacco Use Types Packs/Day Years [...] 06/16/2025 3:00 PM EDT Office Visit [facility] Neurology [address] [place] [address] Alessandra Deal FNP [address] [facility], 2nd [place] [address] documented as of this encounter Visit Diagnoses Not on filedocumented in this encounter Care Teams Airport Electrician Relationship Specialty Start Date End Date Maciej Curran PA [address] [place] [address] PCP - General Physician Channel Sales Director 05/07/24 documented as of this encounter Additional Source Comments The information contained in this document represents components of the legal health record. It is not the complete legal health record.[facility]
== END ==
LOC: HO.CARD 09:00
PROVIDERS: PCP Physician Assistant; Visit Provider Surgery
DX: R94.31 Abnormal electrocardiogram [ECG] [EKG] (principal)
CPT/HCPCS: 93306

== ENCOUNTER → 2025-05-19 09:03 | Outpatient (BNV) | payer OTHER, SELFPAY | PROVIDERS: PCP Physician Assistant; Visit Provider Internal Medicine Cardiovascular Disease | DX: R94.31 Abnormal electrocardiogram [ECG] [EKG] (principal) | CPT/HCPCS: 93306 ==

== ENCOUNTER 2025-06-10 08:15 | Outpatient (AMB) | payer OTHER, SELFPAY ==
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
--- OUTSIDE RECORDS SUMMARY | 2025-06-10 08:49 | XMS_ITS | Clinical Summary ---
Author Organization [facility] Address [address] [place] [id number] Care Team Providers Care Vaccine Customer Representative Name Role Phone Maciej Curran Primary Care [...] schedule II opioid drug. 02/22/20 23 Active glpygalekufo-Ik-pr on-minerals tablet Take by mouth. Active NIFEdipine [...] tablet Take by mouth. Activ e rizatriptan COASTAL/HARBOR DEFENSE OFFICER (MAXALT-COASTAL/HARBOR DEFENSE OFFICER) 10 mg disintegrating tablet Take 10 mg [...] Department Care Team Description 04/23/2025 Orders Only [facility] [address] [place] [address] Sarah Hamilton MD 04/11/2025 Orders Only [facility] [address] [place] [address] Sarah Hamilton MD 03/28/2025 10:30 AM EDT Office Visit [facility] [address] [place] [address] Sarah Hamilton MD Pelvic pain in female (Primary Dx) 03/28/2025 10:25 AM EDT Ancillary Procedure [facility] Department of Ultrasound Imaging [address] [place] [address] Sarah Hamilton MD from Last 3 Months [...] 07/01/2025 2:30 PM EDT Scheduled Telephone Visit [facility] Department of Women's Health [facility] [place] [address] [place] [address] Sarah Hamilton MD [address]-OBSTETRICS/ [place] [address] Health Maintenance Due Date Last Done Comments [...] topic Meningococcal Vaccine Aged Out No suhail soern eligible based on patient's age to complete this topic Procedures Procedure Name Priority Date/Time Associated Diagnosis Comments BUILDING INSULATION INSTALLER ULTRASOUND Routine 03/28/2025 10:24 AM EDT Pelvic pain in female from Last 3 Months Results * BUILDING INSULATION INSTALLER Ultrasound (03/28/2025 10:24 AM EDT) Anatomical Region [...] ANTHEM - OUT OF STATE Care Teams Vaccine Customer Representative Relationship Specialty Start Date End Date Maciej Curran PA [address] [place] [id number] PCP - General Primary Care 12/26/24
--- OUTSIDE RECORDS SUMMARY | 2025-06-10 08:49 | XMS_ITS | Encounter Summary ---
Author Organization [facility] Address [address] [place] [address] Phone Care Team Providers Care Cabin Equipment Supervisor Name Role Phone Maciej Curran Primary Care Provider + Encounter Details Date Type Department Care Team (Late st Contact Info) Description 12/04/2024 Telephone [facility] OBGYN Gynecology Resident [address] [place], [place] [id number] Amy Oleary [place], [place] [address] [place] [address] [email or web address] Social History Tobacco Use Types Packs/Day Years [...] 06/16/2025 3:00 PM EDT Office Visit [facility] Neu[facility] [address] [place] [address] Alessandra Deal FNP [address] [facility], 2nd [place] [address] documented as of this encounter Visit Diagnoses Not on filedocumented in this encounter Care Teams Cabin Equipment Supervisor Relationship Specialty Start Date End Date Maciej Curran PA [address] [place] [address] PCP - General Physician Supervisor Tunnel Heading 05/07/24 documented as of this encounter Additional Source Comments The information contained in this document represents components of the legal health record. It is not the complete legal health record.[facility]
--- OUTSIDE RECORDS SUMMARY | 2025-06-10 08:49 | XMS_ITS | Encounter Summary ---
Author Organization [facility] Address [address] [place] [address] Care Team Providers Care Field Crop Farmer Name Role Phone Pcp, Heidi Primary Care Provider Jonny Faust MD Primary Care Provider [phone] Encounter Details Date Type Department Care Team (Late st Contact Info) Description 01/20/2016 Scanned Document [facility] [address] [place] [address] Provider, Generic Social History Tobacco Use Types [...] on filedocumented in this encounter Care Teams Field Crop Farmer Relationship Specialty Start Date End Date Pcp, No PCP - General General Medicine 01/18/16 06/16/19 Jonny Joseph MD [address] [place] [address] PCP - General Family Medicine 06/17/19 documented as of this encounter
== END 2025-06-10 09:26 | disposition home or self-care (01) ==
LOC: HO.HBST 08:15
PROVIDERS: PCP Physician Assistant; Visit Provider Counselor Mental Health
DX: F41.9 Anxiety disorder, unspecified (principal); F43.9 Reaction to severe stress, unspecified; Z71.89 Other specified counseling
CPT/HCPCS: 90837

== ENCOUNTER 2025-06-14 09:06 | Outpatient (AMB) | payer OTHER, SELFPAY ==
--- OUTSIDE RECORDS SUMMARY | 2025-06-14 09:08 | XMS_ITS | Encounter Summary ---
Author Organization [facility] Address [address] [place] [address] Care Team Providers Care Aviation Technical Systems Specialist Name Role Phone Pcp, Heidi Primary Care Provider Jonny Faust MD Primary Care Provider [phone] Encounter Details Date Type Department Care Team (Late st Contact Info) Description 01/20/2016 Scanned Document [facility] [address] [place] [address] Provider, Generic Social History Tobacco Use Types [...] on filedocumented in this encounter Care Teams Aviation Technical Systems Specialist Relationship Specialty Start Date End Date Pcp, No PCP - General General Medicine 01/18/16 06/16/19 Jonny Joseph MD [address] [place] [address] PCP - General Family Medicine 06/17/19 documented as of this encounter
[2025-06-14 09:20] VITALS: BP 134/76; PULSE 86; TEMP 37.3; O2SAT 98
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
== END 2025-06-14 10:13 | disposition home or self-care (01) ==
LOC: HO.HMCWIC 09:06
PROVIDERS: PCP Physician Assistant; Visit Provider Physician Assistant Medical
DX: J02.0 Streptococcal pharyngitis (principal)

== ENCOUNTER 2025-06-14 09:06 | Outpatient (REF) | payer OTHER, SELFPAY ==
[2025-06-14 12:15] LABS: Resp Syncy Virus RNA Qual PCR NEGATIVE (Negative); SARS COV2 PCR INHOUSE NEGATIVE (Negative)
== END 2025-06-14 09:07 | disposition home or self-care (01) ==
LOC: HO.LNP 09:06
PROVIDERS: PCP Physician Assistant; Visit Provider Physician Assistant Medical
DX: J02.0 Streptococcal pharyngitis (principal); Z13.89 Encounter for screening for other disorder
CPT/HCPCS: 87637; 87880

== ENCOUNTER 2025-06-18 13:39 | Outpatient (REF) | payer OTHER, SELFPAY ==
--- OUTSIDE RECORDS SUMMARY | 2025-06-16 15:00 | XMS_ITS | Encounter Summary ---
Author Organization [facility] Address [address] [facility] [address] [place] [address] Phone Care Team Providers Care Bleach Chlorinator Name Role Phone Maciej Curran Primary Care Provider + Reason for Visit * Reason Comments Migraine Follow up Encounter Details Date Type Department Care Team (Late st Contact Info) Description 06/16/2025 3:00 PM EDT Office Visit [facility] [address] [place] [address] Alessandra Deal, LATHE SETUP OPERATOR [address] [facility], 2nd [place] [address] [email or web address] Intractable migraine with aura without status migrainosus (Primary Dx); Chronic daily headache Social History Tobacco Use Types Packs/Day Years [...] AM EDT documented as of this encounter Progress Notes * Alessandra Deal, LATHE SETUP OPERATOR - 06/16/2025 3:00 PM EDT Date of Visit: 06/17/2025 Reason for Visit (Chief Complaint): Headaches HPI: Carol Wong is a 34 year old female with a history of hypertension and anxiety who follows-up [facility]. She established care with [facility] Neurology in November 2024. At that time, she was to continue rizatriptan as needed or intranasal zolmitriptan for back-up. Ajovy had caused a globus sensation.This was discontinued and Quilpta was resumed. Pt's migraines have become slightly more frequent and are last longer. She is no longer experiencing the globus sensation she had on the Ajovy. She does not have any side effects from the medication.She is using both rizatriptan and intranasal zolmitriptan. She feels the intranasal medication is more effective. She has noticed some rebound headache with rizatriptan, but continues to use this at least once weekly. She continues on 80mg of propranolol without any dizziness, bradycardia, or orthostasis. Since her last visit, she had a migraine that required a prednisone taper. She was diagnosed with insulin resistance and has started metformin. She is awaiting insurance approval of elagolix for endometriosis. She is considering getting a hysterectomy. She was told she willneed to lose weight to undergo this procedure and she has been working hard to lose weight. She is eating a higher protein diet. She reports drinking at least 32oz of water day. She has not been skipping meals. She is taking a magnesium and vitamin B2 supplement. Her sleep is relatively good. Her nearly 2 year old son, Florin, sleeps through the night relatively consistently. She and her alternate who gets up with him on the weekends, so she is able to sleep in once weekly. Pt has a history of anxiety. She tried sertraline many years ago which caused significant emotionalblunting. She tried duloxetine which caused tardive dyskinesia. She does not want to try any other psychiatric medications. She has tried some peppermint essential oils when showering which has helped with headache. 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 I am at least her 2nd neurologist. Her standard headache involves constant dull achy pain at the vertex/back of her head, occurring everyday for as long as she can remember. She cannot recall any day as an adult without a headache. Her usual migraine feels like a colorful visual aura going across her vision lasting up to 60min (occurs prior to ~75% of migraine attacks), sharp intense throbbing bitemporal painthat makes her eyes hurt, with associated brain fog and word recall difficulties, photo/phonosensitivity, nausea, rare vomiting. She estimates 4-6 migraines/month, rarely lingering for more than a day or so per attack. Triggers include stress. No particular food triggers. She avoids etoh. Caffeine can be therapeutic and can paradoxically help with sleep sometimes. Barometric pressure changes can trigger things. She has an IUD, but she doesn't recall if there was significant hormonal correlationon account of her endometriosis. When she was 16mo ago, she had terrible migraines w associated HTN/lethargy, concerning for pre-eclampsia even through it wasn't. Sleep has been problematic as her toddler has been sick with winter time viruses. Rescue: Rizatriptan during the visual aura can help keep her functioning during a migraine attack. She has intranasal zolmitriptan as a backup option. Sumatriptan caused bad rebound FLETCHER's. Preventative: Qulipta was working well but insurance required swap to [employer] circa summer 2023 but this causes some globus sensation in her throat for 24hrs post injection.. Magnesium, riboflavin, nifedipine 60mg daily during HTN, propranolol ER 60mg daily with some benefit. Hasn't triedBotox. She has several medication allergies/side effects: amitriptyline (confusion/night terrors), duloxetine (paresthesias and tardive dyskinesia), topiramate (chest pain, palpitations, confusion, tinnitus), nortriptyline (hallucinations, confusion). Brain scan as a teenager without any abnormalities. PMHx: No past medical history on file. Meds: Current Outpatient Medications Medication Sig Dispense Refill Last Dispense cetirizine (ZYRTEC) 10 mg capsule Take by mouth. Unknown (patient-reported) levonorgestreL (MIRENA) 21 mcg/24hr (up to 8 yrs) 52 mg intrauterine device 1 Intra Uterine Device by Intrauterine route. Unknown (patient-reported) metFORMIN (GLUCOPHAGE) 500 MG tablet Unknown (patient-reported) scwthlnqaepq-Re-yvpd-minerals Tab Take by mouth. Unknown (patient-reported) NIFEdipine (PROCARDIA XL) 60 MG 24 hr tablet Unknown (patient-reported) omeprazole (PRILOSEC) 20 MG capsule Take 20 mg by mouth. Unknown (patient-reported) ondansetron (ZOFRAN) 4 MG tablet Take by mouth every 8 (eight) hours as needed. Unknown (patient-reported) propranoloL (INDERAL LA) 80 mg 24 hr capsule Take 1 capsule (80 mg total) by mouth daily. 30 capsule 11 Unknown (outside pharmacy) QULIPTA 60 mg tablet TAKE 1 TABLET (60 MG TOTAL) BY MOUTH DAILY. 30 tablet 11 Unknown (outside pharmacy) riboflavin, vitamin B2, 400 mg Tab Take by mouth. Unknown (patient-reported) rizatriptan (MAXALT-MASTER CERTIFIED RV TECHNICIAN) 10 MG disintegrating tablet Take 1 tablet (10 mg total) by mouth as neededfor migraine. May repeat in 2 hours if needed 9 tablet 11 Unknown (outside pharmacy) zinc citrate, zinc oxide 50 mg Tab Take by mouth. Unknown (patient-reported) ZOLMitriptan (ZOMIG) 5 mg nasal solution 1 spray by Nasal route as needed for migraine. 6 each 11 Unknown (outside pharmacy) elagolix (ORILISSA) 150 mg Tab Take 150 mg by mouth. (Patient not taking: Reported on 06/16/2025) Unknown (patient-reported) hyoscyamine (LEVSIN) 0.125 mg/5 mL Elix Take 0.125 mg by mouth every 4 (four) hours. (Patient not taking: Reported on 06/16/2025) Unknown (patient-reported) LIDOCAINE 2 % solution SWISH AND SWALLOW 10 ML TO AFFECTED AREA 3 TIMES A DAY NEEDED FOR PAIN (Patient not taking: Reported on 06/16/2025) Unknown (patient-reported) No current facility-administered medications for this visit. Allergies: Allergies Allergen Reactions Duloxetine Other (See Comments), Paresthesia and Tardive Dyskinesia Other Reaction(s): Tardive dyskinesia Oxycodone Anaphylaxis and Unknown Other Reaction(s): shortness of breath, rash Topiramate Mental Status Change, Headaches, Joint Pain, Other (See Comments), Palpitations, Shortness Of Breath and Tinnitus Other Dyskinesia Sumatriptan Headaches, Hives and Other (See Comments) Amitriptyline Other (See Comments) and Palpitations Other Reaction(s): Visual hallucinations Other Reaction(s): Night terrors, Visual hallucinations Codeine Itching, Nausea and/or Vomiting, Nausea Only and Rash Other Reaction(s): Persistent vomiting Rash and vomit Other Reaction(s): Persistent vomiting Rash and vomit Nortriptyline Joint Pain and Other (See Comments) Other Reaction(s): Joint pain FamHx: Mom has migraines, but she isn't on anything specific. She is on a beta- chino and CHRIS inhibitor. Two of her cousins did well with Botox. 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 Lives with and son. No IPV. Son is about to turn two. No tobacco or vaping. Has 2 drinksmaybe once a month or less. Edibles which helps with endometriosis pain; avoids if recent migraine.No SI/HI. ROS: Pertinent positive ROS are listed in the HPI. All others are negative. Physical Exam: Vitals: There were no vitals filed for this visit. Gen: AAOx3, calm, NAD Neuro: MS: AAOx3, appropriately conversational. Speech is clear/fluent. CN: no ptosis, hearing intact to conversation Motor: Moving all limbs equally. Able to arise from a chair w/o difficulty. Sens: deferred Reflexes: deferred Coord: deferred Gait: Nml base, stride, arm swing. 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 She has noticed an increase in migraine above her 4-6 monthly with symptoms lasting longer than previously. She also has tension type headache. Her neurologic exam remains reassuringly non- focal and we do not think neuroimaging is needed at this time. She has tried a myriad of interventions over the years. Our headache plan will be as follows: Acute/abortive Treatment: -Continue rizatriptan 10 mg as needed for migraine attack. She may use intranasal zolmitriptan as abackup option for migraines lingering longer than 24 hours. She should not mix triptans in the samemigraine day. -Okay to use tylenol, motrin, or excedrin as needed -- safe to take up 3-4 doses per week. -Counselling provided regarding risk of rebound HAs. -Would avoid fioricet or narcotics as these drugs may cause fierce rebound headaches. Preventative Treatment: -Continue Qulipta -Other options include Aimovig, Emgality, Nurtec. If insurance will not cover Qulipta, then we can try the Qulipta co-pay program or try an injectable CGRP plus an oral rescue agent like Nurtec or Ubrelvy. -Will will increase propranolol to 120mg by mouth daily. 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 -Continue magnesium and riboflavin supplements. -Consider starting CoQ-10 -Encouraged blue light blocking glasses and tinted glasses for migraine -Consider acupuncture and/or massage -Pt may be good candidate for Botox in the future. Lifestyle: We discussed headache prevention strategies such as consistent and adequate sleep, proper hydration, not skipping meals, low caffeine intake and stress reduction. F/U 3 months; sooner as needed I personally spent 45 minutes today preparing for the patient, coordinating care, reviewing the record, and documenting in the record. documented in this encounter Plan of Treatment Upcoming Encounters Date Type Department Care Team (Late st Contact Info) Description 09/22/2025 3:30 PM EST Telemedicine [facility] [address] [place] [address] Alessandra Deal FNP [facility] [address] [place] [address] [email or web address] documented as of this encounter Visit Diagnoses Diagnosis Intractable migraine with aura without status migrainosus- Primary Chronic daily headache Headache documented in this encounter Care Teams Bleach Chlorinator Relationship Specialty Start Date End Date Maciej Curran PA [address] [place] [address] PCP - General Physician Courtroom Deputy 05/07/24 documented as of this encounter Additional Source Comments The information contained in this document represents components of the legal health record. It is not the complete legal health record.[facility]
--- NOTE | ~2025-06-18 | XR_ITS ---
EXAMINATION: XR CHEST CLINICAL INFORMATION: J06.9 - Acute upper respiratory infection, unspecified COMPARISON: April 30, 2025 TECHNIQUE: 2 views of the chest were obtained. FINDINGS: There is a focal airspace opacity in the anterior inferior portion of the right upper lobe contacting the major fissure. Lungs are clear otherwise. There is no pleural effusion. Heart and mediastinal contours are within normal limits. XR/XR chest 2V IMPRESSION: Right upper lobe pneumonia. Electronically signed by: Mello Dunbar MD 06/18/2025 01:57 PM EDT
--- OUTSIDE RECORDS SUMMARY | 2025-06-18 14:26 | XMS_ITS | Encounter Summary ---
Author Organization [facility] Address [address] [place] [address] Phone Care Team Providers Care Technical Buyer Name Role Phone Maciej Curran Primary Care Provider + Encounter Details Date Type Department Care Team (Late st Contact Info) Description 12/04/2024 Telephone [facility] OBGYN Gynecology Resident [address] [place], [place] [phone] Amy Oleary [place], [place] [address] [place] [address] [email or web address] Social History Tobacco Use Types [...] Info) Description 09/22/2025 3:30 PM EST Telemedicine [facility] Neurology [address] [place] [address] Alessandra Deal FNP 15 [facility], 2nd [place] [address] [email or web address] documented as of this encounter Visit Diagnoses Not on filedocumented in this encounter Care Teams Technical Buyer Relationship Specialty Start Date End Date Maciej Curran PA [address] [place] [address] PCP - General Physician Denier Control Operator 05/07/24 documented as of this encounter Additional Source Comments The information contained in this document represents components of the legal health record. It is not the complete legal health record.[facility]
--- OUTSIDE RECORDS SUMMARY | 2025-06-18 14:26 | XMS_ITS | Encounter Summary ---
Author Organization [facility] Address [address] [place] [address] Care Team Providers Care Legislative Analyst Name Role Phone Pcp, Heidi Primary Care Provider Jonny Faust MD Primary Care Provider [phone] Encounter Details Date Type Department Care Team (Late st Contact Info) Description 01/20/2016 Scanned Document [facility] [address] [place] [address] Provider, Generic Social History Tobacco Use Types [...] on filedocumented in this encounter Care Teams Legislative Analyst Relationship Specialty Start Date End Date Pcp, No PCP - General General Medicine 01/18/16 06/16/19 Jonny Joseph MD [address] [place] [address] PCP - General Family Medicine 06/17/19 documented as of this encounter
--- OUTSIDE RECORDS SUMMARY | 2025-06-18 14:26 | XMS_ITS | Clinical Summary ---
Author Organization [facility] Address [address] [place] [address] Care Team Providers Care Bottle Washing Machine Operator Name Role Phone Maciej Curran Primary Care Provider [phone] Allergies Active Allergy Reactions Criticality Noted Date [...] schedule II opioid drug. 02/22/20 23 Active ohnxaoehkfrc-Fj-fi on-minerals tablet Take by mouth. Active NIFEdipine [...] tablet Take by mouth. Activ e rizatriptan TRAFFIC SIGN ERECTION SUPERVISOR (MAXALT-TRAFFIC SIGN ERECTION SUPERVISOR) 10 mg disintegrating tablet Take 10 mg [...] Care Team Description 04/23/2025 Orders Only [facility] [address] [place] [address] Sarah Hamilton MD 04/11/2025 Orders Only [facility] [address] [place] [address] Sarah Hamilton MD 03/28/2025 10:30 AM EDT Office Visit [facility] [address] [place] [address] Sarah Hamilton MD Pelvic pain in female (Primary Dx) 03/28/2025 10:25 AM EDT Ancillary Procedure [facility] Department of Ultrasound Imaging [address] [place] [address] Sarah Hamilton MD from Last 3 Months [...] 07/01/2025 2:30 PM EDT Scheduled Telephone Visit [facility] Department of Women's Health [facility] [place] [address] [place] [address] Sarah Hamilton MD [address]-OBSTETRICS/ [place] [address] Health Maintenance Due Date Last Done Comments [...] Procedure Name Priority Date/Time Associated Diagnosis Comments SENIOR LEAD JAVA DEVELOPER ULTRASOUND Routine 03/28/2025 10:24 AM EDT Pelvic pain in female from Last 3 Months Results * SENIOR LEAD JAVA DEVELOPER Ultrasound (03/28/2025 10:24 AM EDT) Anatomical Region [...] ANTHEM - OUT OF STATE Care Teams Bottle Washing Machine Operator Relationship Specialty Start Date End Date Maciej Curran PA [address] [place] [address] PCP - General Primary Care 12/26/24
--- OUTSIDE RECORDS SUMMARY | 2025-06-18 14:26 | XMS_ITS | Encounter Summary ---
Author Organization [facility] Address [address] [place] [address] Care Team Providers Care Cut Off Operator Scorer Name Role Phone Jonny Joseph MD Primary Care Provider [phone] Reason for Visit * Reason Comments Medication Refill Encounter Details Date Type Department Care Team ([facility] st Contact Info) Description 06/18/[address] [facility] [address] [address] Alessandra Banuelos PA [address] [place] [address] H/O acute pancreatitis; LUQ pain Social History [...] quadrant documented in this encounter Care Teams Cut Off Operator Scorer Relationship Specialty Start Date End Date Jonny Joseph MD [address] [facility] [address] PCP - General Family Medicine 06/17/19 documented as of this encounter
--- OUTSIDE RECORDS SUMMARY | 2025-06-18 14:26 | XMS_ITS | Clinical Summary ---
Author Organization [facility] Address [address] [place] [address] Phone Care Team Providers Care Aircraft Technician Name Role Phone Maciej Curran Primary Care Provider + Allergies Active Allergy Reactions Criticality Noted Date Comments Amitriptyline Other (See Comments),Palpitations Low 03/28/2025 Other Reaction(s): Visual hallucinations Other Reaction(s): Night terrors, Visual hallucinations Codeine Itching,Nausea and/o r Vomiting,Nausea Only,Rash Low 11/18/2021 Other Reaction(s): Persistent vomiting Rash and vomit Other Reaction(s): Persistent vomiting Rash and vomit Duloxetine Other (See Comments),Paresthesia, Tardive Dyskinesia High 03/28/2025 Other Reaction(s): Tardive dyskinesia Nortriptyline Joint Pain,Other (Se e Comments) Low 03/28/2025 Other Reaction(s): Joint pain Other 11/18/2021 Dyskinesia Oxycodone Anaphylaxis,Unknown High 05/26/2016 Other Reaction(s): shortness of breath, rash Sumatriptan Headaches,Hives,Othe r (See Comments) 01/21/2022 Topiramate Mental Status Change,Headaches,Joint Pain,Other (See Comments),Palpitations ,Shortness Of Breath,Tinnitus High 01/21/2022 Medications propranoloL (INDERAL LA) 80 mg 24 hr capsuleIndications :Intractable migraine with aura without status migrainosus Take 1 capsule (80 mg total) by mouth daily. 30 capsule 11 12/02/19 25 Active rizatriptan (MAXALT-ACQUISITION SPECIALIST) 10 MG disintegrating tabletIndications: Intractable migraine with aura without status migrainosus Take 1 tablet (10 mg total) by mouth as needed for migraine. May repeat in 2 hours if needed 9 tablet 12/02/19 Active ZOLMitriptan (ZOMIG) 5 mg nasal solutionIndication s:Intractable migraine with aura with status migrainosus 1 spray by Nasal route as needed for migraine. 6 each 04/28/20 25 Active QULIPTA 60 mg tabletIndications: Intractable migraine with aura without status migrainosus TAKE 1 TABLET (60 MG TOTAL) BY MOUTH DAILY. 30 tablet 05/01/20 25 Active zinc citrate, zinc oxide 50 mg Tab Take by mouth. Active riboflavin, vitamin B2, 400 mg Tab Take by mouth. Activ e ondansetron (ZOFRAN) 4 MG tablet Take by mouth every 8 (eight) hours as needed. Active omeprazole (PRILOSEC) 20 MG capsule Take 20 mg by mouth. Active NIFEdipine (PROCARDIA XL) 60 MG 24 hr tablet Acti ve xssamntbuhbq-Xu-dy on-minerals Tab Take by mouth. Active metFORMIN (GLUCOPHAGE) 500 MG tablet 05/14/20 Active levonorgestreL (MIRENA) 21 mcg/24hr (up to 8 yrs) 52 mg intrauterine device 1 Intra Uterine Device by Intrauterine route. Active elagolix (ORILISSA) 150 mg Tab Take 150 mg by mouth. 04/11/20 Active cetirizine (ZYRTEC) 10 mg capsule Take by mouth. Activ e LIDOCAINE 2 % solution SWISH AND SWALLOW 10 ML TO AFFECTED AREA 3 TIMES A DAY NEEDED FOR PAIN 04/05/20 025 Discontin ued(No longer taking) hyoscyamine (LEVSIN) 0.125 mg/5 mL Elix Take 0.125 mg by mouth every 4 (four) hours. 025 Discontin ued(No longer taking) Encounters Date Type Department Care Team Description 06/16/2025 3:00 PM EDT Office Visit [facility] [address] [place] [address] Alessandra Deal FNP Intractable migraine with aura without status migrainosus (Primary Dx); Chronic daily headache 04/30/2025 Refill [facility] [address] [place] [address] Magdy Frances MD Medication Refill from Last 3 Months Social History Tobacco Use Types Packs/Day Years [...] not to disclose 2023 8:58 AM EDT Plan of Treatment Upcoming Encounters Date Type Department Care Team (Late st Contact Info) Description 09/22/2025 3:30 PM EST Telemedicine [facility] [address] [place] [address] Alessandra Deal FNP [address] [facility], 2nd [place] [address] [email or web address] Health Maintenance Due Date Last Done Comments Adult Td,Tdap Booster 1988 CREATININE LEVEL 1988 DEPRESSION SCREENING 2000 SMOKING Hx and SMOKELESS TOB ACCO SCREENING 2001 HEPATITIS C SCREENING 2006 HIV ONE-TIME SCREENING (18-6 5 YEARS) 2006 PAP SMEAR 2009 COVID-19 VACCINE (2023-2 5 season) 2024 INFLUENZA VACCINE (#1) 2025 HEPATITIS A VACCINES Aged Out No long er eligible based on patient's age to complete this topic HIB VACCINES Aged Out No longer eligi ble based on patient's age to complete this topic MENINGOCOCCAL VACCINES (ACWY) Aged Out No longer eligible based on patient's age to complete this topic MENINGOCOCCAL VACCINES (B) Aged Out N o longer eligible based on patient's age to complete this topic PNEUMOCOCCAL VACCINES (0-49 years) Aged Out No longer eligible based on patient's age to complete this topic Medical Devices Not on file Insurance [employer] [address] [place] [address] [employer]MIN[employer] Member Subscriber Plan / Payer ( fective 2023-Present) Name:Carol Wong Relation to Subscriber:Self Name:Carol Wong Payer ID:[id number] (NAIC) Type:PPO Address: [place] [phone] [employer] Member Subscriber Plan / Payer ( fective 2023-Present) Name:Judith Carol Relation to Subscriber:Self Name:Judith Carol Payer ID:[id number] (NAIC) Type:PPO Address: [place] [phone] [employer] Member Subscriber Plan / Payer ( fective 2023-Present) Name:Judith Carol Relation to Subscriber:Self Name:Judith Carol Payer ID:[id number] (NAIC) Type:PPO Address: [place] [phone] [employer] Care Teams Aircraft Technician Relationship Specialty Start Date End Date Maciej Curran PA [address] [place] [address] PCP - General Physician Real Estate Inspector 05/07/24 Additional Source Comments The information contained in this document represents components of the legal health record. It is not the complete legal health record.[facility]
--- OUTSIDE RECORDS SUMMARY | 2025-06-18 14:26 | XMS_ITS | Clinical Summary ---
Author Organization [facility] Address [address] [place] [address] Care Team Providers Care Senior Ui Ux Developer Name Role Phone Jonny Joseph MD Primary Care Provider [phone] Allergies Active Allergy Reactions Criticality Noted Date Comments Oxycodone Unknown/Patient and Family Unable to Define Medium 06/17/2019 Medications levonorgestrel (MIRENA) 20 mcg/24hr IUD 1 each by Intrauterine route once. Active cetirizine (ZyrTEC) 10 MG chewable tablet Chew 10 mg daily. Active pancrelipase (CREON) [address] Torres Garcia ons:H/O acute pancreatitis,GM Q pain Take 1 [...] scan to r/o pancreatic pathology Cont creon 16944 with snack [place] [address]3585 with meal LUQ pain 06/17/2019 Assessment & [...] series) 2007 Pap Smear (Ages 21-65) 2009 HPV Vaccines (1 - 3-dose SCD M series) 2015 COVID-19 Vaccine ( - 2023-2 5 season) 2024 Influenza Vaccine 05/23/2025 Pneumococcal Vaccine: Pediat sammy (0-5 Years) and At-Risk Patients (6 to 49 Years) Aged Out No longer eligible b ased on patient's age to complete this topic Insurance [email or web address] [employer] Care Teams Senior Ui Ux Developer Relationship Specialty Start Date End Date Jonny Joseph MD [address] [place] [phone] PCP - General Family Medicine 06/17/19
== END 2025-06-18 13:40 | disposition home or self-care (01) ==
LOC: HO.HMGCX 13:39
PROVIDERS: PCP Physician Assistant; Visit Provider Physician Assistant
DX: J06.9 Acute upper respiratory infection, unspecified (principal)
CPT/HCPCS: 71046

== ENCOUNTER → 2025-06-18 13:42 | Outpatient (BNV) | payer OTHER, SELFPAY | PROVIDERS: PCP Physician Assistant; Visit Provider Radiology Diagnostic Radiology | DX: J18.1 Lobar pneumonia, unspecified organism (principal) | CPT/HCPCS: 71046 ==

== ENCOUNTER 2025-07-22 07:41 | Outpatient (AMB) | payer OTHER, SELFPAY ==
--- OUTSIDE RECORDS SUMMARY | 2025-07-22 07:47 | XMS_ITS | Clinical Summary ---
Author Organization Replaced by [facility] Address [address] [place] [address] Care Team Providers Care Transplant Worker Name Role Phone Maciej Curran Primary Care [...] schedule II opioid drug. 02/22/20 23 Active qboebgwjnwro-At-oo on-minerals tablet Take by mouth. Active NIFEdipine [...] tablet Take by mouth. Activ e rizatriptan RAILROAD BRAKEMAN (MAXALT-RAILROAD BRAKEMAN) 10 mg disintegrating tablet Take 10 mg [...] morning. 30 tablet 11 04/11/20 25 Active Active Problems Problem Noted Date Diagnosed Date Endometriosis Encounters Date Type Department Care Team Description 07/01/2025 2:30 PM EDT Scheduled Telephone Visit Replaced by [facility] Department of Obstetrics and Gynecology [address] [place] [address] Sarah Hamilton MD Endometriosis (Primary Dx) 04/23/2025 Orders Only [facility] Ob[facility]etrics [facility] Gynecology [address] [place] [address] Sarah Hamilton MD from Last 3 Months [...] was confirmed or suspected to have Coronavirus/COVID-19? Yes 07/01/2025 2:09 PM EDT Last Filed Vital Signs Vital Sign [...] 2 - PCV) 2007 Pap Smear 2009 HPV Vaccines (1 - 3-dose SCDM series) 2015 Cervical Cancer Screening 2018 HPV/Cotest 2018 COVID-19 Vaccine ( - 2024- season) 2025 10/21/2021, 11/04/2020, 10/14/2020 Influenza Vaccine (#1) 2025 , 08/19/2021, 08/07/2020, Additional history exists DTaP,Tdap,and Td Vaccines (2 - Td or Tdap) 05/16/2033 05/16/2023 Zoster Vaccines (1 of 2) 2038 Hepatitis A Vaccines Aged Out No long er eligible based on patient's age to complete this topic MMR Vaccines Aged Out No longer eligi ble based on patient's age to complete this topic Meningococcal Vaccine Aged Out No suhail soren eligible based on patient's age to complete this topic Insurance ANTHEM - OUT OF STATE Care Teams Transplant Worker Relationship Specialty Start Date End Date Maciej Curran PA [address] [place] [phone] PCP - General Primary Care 12/26/24
--- OUTSIDE RECORDS SUMMARY | 2025-07-22 07:47 | XMS_ITS | Encounter Summary ---
Author Organization [facility] Address [address] [place] [address] Phone Care Team Providers Care Animated Cartoons Painter Name Role Phone Maciej Curran Primary Care Provider + Encounter Details Date Type Department Care Team (Late st Contact Info) Description 12/04/2024 Telephone [facility] OBGYN Gynecology Resident [address] [place], [place] [phone] Amy Oleary [place], [place] [address] [place] [address] [email or web address] Social History Tobacco Use Types Packs/Day [...] Info) Description 09/22/2025 3:30 PM EST Telemedicine [facility] Neurology [address] [place] [address] Alessandra Deal FNP 15 [facility], 2nd [place] [address] [email or web address] documented as of this encounter Visit Diagnoses Not on filedocumented in this encounter Care Teams Animated Cartoons Painter Relationship Specialty Start Date End Date Maciej Curran PA [address] [place] [address] PCP - General Physician Proof Sorter 05/07/24 documented as of this encounter Additional Source Comments The information contained in this document represents components of the legal health record. It is not the complete legal health record.[facility]
--- OUTSIDE RECORDS SUMMARY | 2025-07-22 07:47 | XMS_ITS | Clinical Summary ---
Author Organization [facility] Address [address] [place] [address] Phone Care Team Providers Care Loading Checker Name Role Phone Maciej Curran Primary Care [...] Comments),Palpitations ,Shortness Of Breath,Tinnitus High 01/21/2022 Medications rizatriptan (MAXALT-OCCUPATIONAL THERAPY SUPERVISOR) 10 MG disintegrating tabletIndications :Intractable migraine with aura without status migrainosus Take 1 tablet (10 mg total) by mouth as needed for migraine. May repeat in 2 hours if needed 9 tablet 11 Active ZOLMitriptan (ZOMIG) 5 mg nasal solutionIndicatio ns:Intractable migraine with aura with status migrainosus 1 spray by Nasal route as needed for migraine. 6 each 11 Active QULIPTA 60 mg tabletIndications :Intractable migraine with aura without status migrainosus TAKE 1 TABLET (60 MG TOTAL) BY MOUTH DAILY. 30 tablet 11 Active zinc citrate, zinc oxide 50 mg Tab Take by mouth. Activ e riboflavin, vitamin B2, 400 mg Tab Take by mouth. Activ e ondansetron (ZOFRAN) 4 MG tablet Take by mouth every 8 (eight) hours as needed. Active omeprazole (PRILOSEC) 20 MG capsule Take 20 mg by mouth. Active NIFEdipine (PROCARDIA XL) 60 MG 24 hr tablet Acti ve satozjxhnour-Ih-v remigio-minerals Tab Take by mouth. Active metFORMIN (GLUCOPHAGE) 500 MG tablet Active levonorgestreL (MIRENA) 21 mcg/24hr (up to 8 yrs) 52 mg intrauterine device 1 Intra Uterine Device by Intrauterine route. Active elagolix (ORILISSA) 150 mg Tab Take 150 mg by mouth. Active cetirizine (ZYRTEC) 10 mg capsule Take by mouth. Activ e propranoloL (INDERAL LA) 120 mg 24 hr capsuleIndication s:Intractable migraine with aura without status migrainosus Take 1 capsule (120 mg total) by mouth daily. 90 capsule 3 Active propranoloL (INDERAL LA) 80 mg 24 hr capsuleIndication s:Intractable migraine with aura without status migrainosus Take 1 capsule (80 mg total) by mouth daily. 30 capsule 11 025 2024 Discontinued Encounters Date Type Department Care Team Description 06/16/2025 3:00 PM EDT Office Visit [facility] [address] [place] [address] Alessandra Deal, DEB Intractable migraine with aura without status migrainosus (Primary Dx); Chronic daily headache 04/30/2025 Refill [facility] [address] [place] [address] Magdy Frances MD Medication Refill from Last [...] Description 09/22/2025 3:30 PM EST Telemedicine [facility] [address] [place] [address] Alessandra Deal, DEB [address] [facility], 2nd [place] [address] [email or web address] Health Maintenance Due Date Last Done Comments Adult Td,Tdap Booster 1988 CREATININE LEVEL 1988 DEPRESSION SCREENING 2000 SMOKING Hx and SMOKELESS TOB ACCO SCREENING 2001 HEPATITIS C SCREENING 2006 HIV ONE-TIME SCREENING (18-6 5 YEARS) 2006 PAP SMEAR 2009 INFLUENZA VACCINE (#1) 2025 COVID-19 VACCINE (2023-2 5 season) 2025 HEPATITIS A VACCINES Aged Out No [...] topic Medical Devices Not on file Insurance [employer]MIN[employer]RAT[employer] Member Subscriber Plan / Payer (Ef fective 2023-Present) Name:Carol Wong Relation to Subscriber:Self Name:Carol Wong Payer ID:[id number] (NAIC) Type:PPO Address: [place] [phone] [employer] Member Subscriber Plan / Payer (Ef fective 2023-) Name:Carol Wong Relation to Subscriber:Self Name:Carol Wong Payer ID:[id number] (NAIC) Type:PPO Address: [address] [employer] ADMINISTRATORS [employer]MIN[employer]AT[employer]MINISTRAT[employer]AT[employer] Care Teams Loading Checker Relationship Specialty Start Date End Date Maciej Curran PA [address] [place] [phone] PCP - General Physician Flooring Grader 05/07/24 Additional Source Comments The information contained in this document represents components of the legal health record. It is not the complete legal health record.[facility]
[2025-07-22 08:15] VITALS: BP 132/80; PULSE 70; TEMP 37.2; O2SAT 97
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
== END 2025-07-22 08:47 | disposition home or self-care (01) ==
PROVIDERS: PCP Physician Assistant; Visit Provider Physician Assistant
DX: J02.0 Streptococcal pharyngitis (principal); Z13.9 Encounter for screening, unspecified

== ENCOUNTER → 2025-07-22 07:41 | Outpatient (BNVA) | payer OTHER, SELFPAY | PROVIDERS: PCP Physician Assistant; Visit Provider Physician Assistant | DX: J02.0 Streptococcal pharyngitis (principal); R51.9 Headache, unspecified | CPT/HCPCS: 87880 ==

== ENCOUNTER 2025-07-23 16:30 | Outpatient (AMB) | payer OTHER, SELFPAY ==
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
--- OUTSIDE RECORDS SUMMARY | 2025-07-23 16:42 | XMS_ITS | Encounter Summary ---
Author Organization [facility] Address [address] [place] [address] Phone Care Team Providers Care Cloth Bleaching Range Back Tender Name Role Phone Maciej Curran Primary Care Provider + Encounter Details Date Type Department Care Team (Late st Contact Info) Description 12/04/2024 Telephone [facility] OBGYN Gynecology Resident [address] [place], [place] [phone] Amy Oleary [place], [place] [address] [place] [address] [email or web address] Social History Tobacco Use Types Packs/Day [...] Info) Description 09/22/2025 3:30 PM EST Telemedicine [facility] Neurology [address] [place] [address] Alessandra Deal FNP [address] [facility], 2nd [place] [address] [email or web address] documented as of this encounter Visit Diagnoses Not on filedocumented in this encounter Care Teams Cloth Bleaching Range Back Tender Relationship Specialty Start Date End Date Maciej Curran PA [address] [place] [address] PCP - General Physician Solid Waste Collector 05/07/24 documented as of this encounter Additional Source Comments The information contained in this document represents components of the legal health record. It is not the complete legal health record.[facility]
--- OUTSIDE RECORDS SUMMARY | 2025-07-23 16:42 | XMS_ITS | Clinical Summary ---
Author Organization [facility] Address [address] [place] [id number] Care Team Providers Care Product Promoter Sales Person Name Role Phone Maciej Curran Primary Care [...] schedule II opioid drug. 02/22/20 23 Active ljcjozeteang-We-ht on-minerals tablet Take by mouth. Active NIFEdipine [...] tablet Take by mouth. Activ e rizatriptan LINE CONSTRUCTION SUPERVISOR (MAXALT-LINE CONSTRUCTION SUPERVISOR) 10 mg disintegrating tablet Take 10 [...] 07/01/2025 2:30 PM EDT Scheduled Telephone Visit [facility] Department of Obstetrics and Gynecology [address] [place] [address] Sarah Hamilton MD Endometriosis (Primary Dx) 04/23/2025 Orders Only [facility]ne[facility] [address] [place] [address] Sarah Hamilton MD from Last 3 Months [...] ANTHEM - OUT OF STATE Care Teams Product Promoter Sales Person Relationship Specialty Start Date End Date Maciej Curran PA [address] [place] [phone] PCP - General Primary Care 12/26/24
--- OUTSIDE RECORDS SUMMARY | 2025-07-23 16:42 | XMS_ITS | Clinical Summary ---
Author Organization [facility] Address [address] [place] [phone] Phone Care Team Providers Care Service Parts Driver Name Role Phone Maciej Curran Primary Care [...] ,Shortness Of Breath,Tinnitus High 01/21/2022 Medications rizatriptan (MAXALT-C WEB DEVELOPER) 10 MG disintegrating tabletIndications :Intractable migraine with [...] 60 MG 24 hr tablet Acti ve dwgxwwwcrwlj-Uo-b remigio-minerals Tab Take by mouth. Active metFORMIN [...] Description 06/16/2025 3:00 PM EDT Office Visit [facility] Neurology [address] [place] [address] Alessandra Deal, DEB Intractable migraine with aura without status migrainosus (Primary Dx); Chronic daily headache 04/30/2025 Refill [facility] Neurology [address] [place] [address] Magdy Frances MD Medication Refill from Last [...] Info) Description 09/22/2025 3:30 PM EST Telemedicine [facility] Neurology [address] [place] [address] Alessandra Deal, DEB [address] [facility], 2nd [place] [address] [email or web address] Health Maintenance Due Date Last Done Comments [...] topic Medical Devices Not on file Insurance [employer] Member Subscriber Plan / Payer (Ef fective 2023-Present) Name:Carol Wong Relation to Subscriber:Self Name:Carol Wong Payer ID:[id number] (NAIC) Type:PPO Address: [place] [id number] [employer] Member Subscriber Plan / Payer (Ef fective 2023-) Name:Carol Wong Relation to Subscriber:Self Name:Carol Wong Payer ID:[id number] (NAIC) Type:PPO Address: [address] [employer] Factual BENEFITS ADMINISTRATORS [employer] Care Teams Service Parts Driver Relationship Specialty Start Date End Date Maciej Curran PA [address] [place] [phone] PCP - General Physician Credit Coordinator 05/07/24 Additional Source Comments The information contained in this document represents components of the legal health record. It is not the complete legal health record.[facility]
== END 2025-07-23 16:31 | disposition home or self-care (01) ==
LOC: HO.HGI 16:30
PROVIDERS: PCP Physician Assistant; Visit Provider Internal Medicine
DX: K58.2 Mixed irritable bowel syndrome (principal); R10.9 Unspecified abdominal pain; R19.8 Other specified symptoms and signs involving the digestive system and abdomen; N80.9 Endometriosis, unspecified; E66.01 Morbid (severe) obesity due to excess calories; E88.819 Insulin resistance, unspecified
CPT/HCPCS: 99214

== ENCOUNTER 2025-07-29 08:20 | Outpatient (REF) | payer OTHER, SELFPAY ==
--- NOTE | ~2025-07-29 | FL_ITS ---
EXAMINATION: XR FLUOROSCOPY UPPER GI WITH AIR CLINICAL INFORMATION: Morbid obesity COMPARISON: None available. TECHNIQUE: Upper GI series, performed with thick and thin barium and effervescent granules. FINDINGS Esophagus demonstrates normal distention and motility. No evidence of stricture, mass or mucosal lesion. Stomach demonstrates normal distention. No mass or mucosal lesions are seen. There is normal passage of the barium through the stomach into the proximal small bowel. Small sliding hiatal hernia. There is gastroesophageal reflux seen in the supine position. FLUOROSCOPY TIME: 1.34 minutes DOSE AREA PRODUCT: 1746 uGy-m2 (microgray-meter squared) FL/FL upper GI w air IMPRESSION: 1. Small sliding hiatal hernia. 2. Gastroesophageal reflux seen in the supine position. 3. No evidence of esophageal mass or mucosal lesion. Electronically signed by: Steffen Piper MD 07/29/2025 11:41 AM EDT
--- OUTSIDE RECORDS SUMMARY | 2025-07-29 08:44 | XMS_ITS | Encounter Summary ---
Author Organization [facility] Address [address] [place] [address] Phone Care Team Providers Care Wastewater Operator Name Role Phone Maciej Curran Primary Care Provider + Encounter Details Date Type Department Care Team (Late st Contact Info) Description 12/04/2024 Telephone [facility] OBGYN Gynecology Resident [address] [place], [place] [phone] Amy Oleary [place], [place] [address] [place] [phone] [email or web address] Social History Tobacco Use Types [...] Info) Description 09/22/2025 3:30 PM EST Telemedicine [facility] Neurology [address] [place] [address] Alessandra Deal FNP [address] [facility], [address]nd [place] [address] [email or web address] documented as of this encounter Visit Diagnoses Not on filedocumented in this encounter Care Teams Wastewater Operator Relationship Specialty Start Date End Date Maciej Curran PA [address] [place] [address] PCP - General Physician Excelsior Picker 05/07/24 documented as of this encounter Additional Source Comments The information contained in this document represents components of the legal health record. It is not the complete legal health record.[facility]
--- OUTSIDE RECORDS SUMMARY | 2025-07-29 08:44 | XMS_ITS | Clinical Summary ---
Author Organization [facility] Address [address] [place] [address] Phone Care Team Providers Care Supervisor Finishing Room Name Role Phone Maciej Curran Primary Care [...] ,Shortness Of Breath,Tinnitus High 01/21/2022 Medications rizatriptan (MAXALT-DATA ENTRY ANALYST) 10 MG disintegrating tabletIndications: Intractable migraine with aura without status migrainosus Take 1 tablet (10 mg total) by mouth as needed for migraine. May repeat in 2 hours if needed 9 tablet 12/02/19 Active ZOLMitriptan (ZOMIG) 5 mg nasal solutionIndication s:Intractable migraine with aura with status migrainosus 1 spray by Nasal route as needed for migraine. 6 each 04/28/20 Active QULIPTA 60 mg tabletIndications: Intractable migraine with aura without status migrainosus TAKE 1 TABLET (60 MG TOTAL) BY MOUTH DAILY. 30 tablet 05/01/20 Active zinc citrate, zinc oxide 50 mg Tab Take by mouth. Active riboflavin, vitamin B2, 400 mg Tab Take by mouth. Activ e ondansetron (ZOFRAN) 4 MG tablet Take by mouth every 8 (eight) hours as needed. Active omeprazole (PRILOSEC) 20 MG capsule Take 20 mg by mouth. Active NIFEdipine (PROCARDIA XL) 60 MG 24 hr tablet Acti ve ghzifgwtqroa-Pq-zo on-minerals Tab Take by mouth. Active metFORMIN (GLUCOPHAGE) 500 MG tablet 05/14/20 Active levonorgestreL (MIRENA) 21 mcg/24hr (up to 8 yrs) 52 mg intrauterine device 1 Intra Uterine Device by Intrauterine route. Active elagolix (ORILISSA) 150 mg Tab Take 150 mg by mouth. 04/11/20 Active cetirizine (ZYRTEC) 10 mg capsule Take by mouth. Activ e propranoloL (INDERAL LA) 120 mg 24 hr capsuleIndications :Intractable migraine with aura without status migrainosus Take 1 capsule (120 mg total) by mouth daily. 90 capsule 3 06/26/20 Active Encounters Date Type Department Care Team Description 06/16/2025 3:00 PM EDT Office Visit [facility] Neurology [address] [place] [address] [place] [address] Alessandra Deal FNP Intractable migraine with aura without status migrainosus (Primary Dx); Chronic daily headache 04/30/2025 Refill [facility] Neurology [address] [place] [address] Magdy Frances MD Medication Refill from Last [...] Info) Description 09/22/2025 3:30 PM EST Telemedicine [facility] Neurology [address] [place] [address] Alessandra Deal, DEB 15 [facility], 2nd [place] [address] Health Maintenance Due Date Last Done Comments Adult Td,Tdap Booster 1988 CREATININE LEVEL 1988 DEPRESSION SCREENING 2000 SMOKING Hx and SMOKELESS TOB ACCO SCREENING 2001 HEPATITIS C SCREENING 2006 HIV ONE-TIME SCREENING (18-6 5 YEARS) 2006 PAP SMEAR 2009 INFLUENZA VACCINE (#1) 2025 COVID-19 VACCINE ( - 2024-2 6 season) 2025 HEPATITIS A VACCINES Aged Out [...] topic Medical Devices Not on file [place] [address] [place] [address] [facility] [address] [place] [address] [facility] [employer] [address] [place] [address] [facility] [employer] [facility] [employer] [employer] Care Teams Supervisor Finishing Room Relationship Specialty Start Date End Date Maciej Curran PA [address] [place] [address] PCP - General Physician Supervisor Mending 05/07/24 Additional Source Comments The information contained in this document represents components of the legal health record. It is not the complete legal health record.[facility]
--- OUTSIDE RECORDS SUMMARY | 2025-07-29 08:44 | XMS_ITS | Clinical Summary ---
Author Organization [facility] Address [address] [place] [address] Care Team Providers Care Records Officer Name Role Phone Maciej Curran Primary Care [...] schedule II opioid drug. 02/22/20 23 Active zqzvqgzugsvc-Ib-dc on-minerals tablet Take by mouth. Active NIFEdipine CC (ADALAT CC) 60 mg 24 hr tablet Take 60 mg by mouth. 06/19/20 23 Active zinc citrate, zinc oxide 50 [...] tablet Take by mouth. Activ e rizatriptan MANAGER BUDGET (MAXALT-MANAGER BUDGET) 10 mg disintegrating tablet Take 10 mg [...] access hospital Department of Obstetrics and Gynecology [address] [place] [id number] Sarah Hamilton MD Endometriosis (Primary Dx) from Last 3 Months Family History Medical [...] 2018 HPV/Cotest 2018 COVID-19 Vaccine (4 - 2024- season) 2025 10/21/2021, 11/04/2020, 10/14/2020 [...] ANTHEM - OUT OF STATE Care Teams Records Officer Relationship Specialty Start Date End Date Maciej Curran PA [address] [place] [id number] PCP - General Primary Care 12/26/24
== END 2025-07-29 08:21 | disposition home or self-care (01) ==
LOC: HO.XRAY 08:20
PROVIDERS: PCP Physician Assistant; Visit Provider Surgery
DX: E66.01 Morbid (severe) obesity due to excess calories (principal); I10 Essential (primary) hypertension; K21.9 Gastro-esophageal reflux disease without esophagitis; S46.811D Strain of other muscles, fascia and tendons at shoulder and upper arm level, right arm, subsequent encounter; M79.671 Pain in right foot
CPT/HCPCS: 74246

== ENCOUNTER → 2025-07-29 08:22 | Outpatient (BNV) | payer OTHER, SELFPAY | PROVIDERS: PCP Physician Assistant; Visit Provider Radiology Diagnostic Ultrasound | DX: K44.9 Diaphragmatic hernia without obstruction or gangrene (principal) | CPT/HCPCS: 74246 ==

== ENCOUNTER 2025-07-29 15:36 | Outpatient (AMB) | payer OTHER, SELFPAY ==
[2025-07-29 16:16] VITALS: BP 140/80; PULSE 71; TEMP 36.3; O2SAT 97; BMI 52.6
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
--- OUTSIDE RECORDS SUMMARY | 2025-07-29 18:40 | XMS_ITS | Encounter Summary ---
Author Organization [facility] Address [address] [place] [address] Phone Care Team Providers Care Cloth Burler Name Role Phone Maciej Curran Primary Care Provider + Encounter Details Date Type Department Care Team (Late st Contact Info) Description 12/04/2024 Telephone [facility] OBGYN Gynecology Resident [address] [place], [place] [phone] Amy Oleary [place], [place] [address] [place] [address] [email or web address] Social History Tobacco Use Types [...] Info) Description 09/22/2025 3:30 PM EST Telemedicine [facility] Neurology [address] [place] [address] Alessandra Deal FNP 15 [facility], 2nd [place] [address] [email or web address] documented as of this encounter Visit Diagnoses Not on filedocumented in this encounter Care Teams Cloth Burler Relationship Specialty Start Date End Date Maciej Curran PA [address] [place] [address] PCP - General Physician Chocolatier 05/07/24 documented as of this encounter Additional Source Comments The information contained in this document represents components of the legal health record. It is not the complete legal health record.[facility]
--- OUTSIDE RECORDS SUMMARY | 2025-07-29 18:40 | XMS_ITS | Clinical Summary ---
Author Organization Pending sale to [facility] Address [address] [place] [address] Care Team Providers Care Assembler [employer] Spider Name Role Phone Maciej Curran Primary Care [...] schedule II opioid drug. 02/22/20 23 Active hafurcmhlohx-Al-zh on-minerals tablet Take by mouth. Active NIFEdipine [...] tablet Take by mouth. Activ e rizatriptan SCRAPER TENDER (MAXALT-SCRAPER TENDER) 10 mg disintegrating tablet Take 10 mg [...] 07/01/2025 2:30 PM EDT Scheduled Telephone Visit Pending sale to [facility] Department of Obstetrics and Gynecology [address] [place] [id number] Sarah Hamilton MD Endometriosis (Primary Dx) from [...] ANTHEM - OUT OF STATE Care Teams Assembler [employer] Spider Relationship Specialty Start Date End Date Maciej Curran PA [address] [place] [id number] PCP - General Primary Care 12/26/24
--- OUTSIDE RECORDS SUMMARY | 2025-07-29 18:40 | XMS_ITS | Clinical Summary ---
Author Organization [facility] Address [address] [place] [phone] Phone Care Team Providers Care Client Services Associate Name Role Phone Maciej Curran Primary Care [...] ,Shortness Of Breath,Tinnitus High 01/21/2022 Medications rizatriptan (MAXALT-SET DECORATOR) 10 MG disintegrating tabletIndications: Intractable migraine with [...] 60 MG 24 hr tablet Acti ve ylwcklwpocjj-Pk-ve on-minerals Tab Take by mouth. Active metFORMIN [...] Description 06/16/2025 3:00 PM EDT Office Visit [facility] Neurology [address] [place] [address] [place] [address] Alessandra Deal FNP Intractable migraine with aura without status migrainosus (Primary Dx); Chronic daily headache 04/30/2025 Refill [facility] Neurology [address] [place] [address] Magdy Frances MD Medication Refill from Last [...] 3:30 PM EST Telemedicine [facility] Neurology [address] [place] [address] Alessandra Deal, DEB [address] [facility], [address] [place] [address] Health Maintenance Due Date Last Done Comments [...] topic Medical Devices Not on file [place] [address] [place] [address] [employer] [facility] [employer] [address] [place] [address] [employer] [facility] [employer] [place] [address] [employer] [facility] [employer] [facility] [employer] Care Teams Client Services Associate Relationship Specialty Start Date End Date Maciej Curran PA [address] [place] [address] PCP - General Physician [employer] Systems Engineer 05/07/24 Additional Source Comments The information contained in this document represents components of the legal health record. It is not the complete legal health record.[facility]
== END 2025-07-29 16:50 | disposition home or self-care (01) ==
LOC: HO.HMCH 15:37
PROVIDERS: PCP Physician Assistant; Visit Provider Physician Assistant
DX: I10 Essential (primary) hypertension (principal); E66.813 Obesity, class 3; Z68.43 Body mass index [BMI] 50.0-59.9, adult; S46.811A Strain of other muscles, fascia and tendons at shoulder and upper arm level, right arm, initial encounter; M79.671 Pain in right foot

== ENCOUNTER 2025-08-11 08:16 | Outpatient (REF) | payer OTHER, SELFPAY ==
--- NOTE | ~2025-08-11 | US_ITS ---
EXAMINATION: US ABDOMEN COMPLETE WITH LIVER ELASTOGRAPHY HISTORY: E66.01 - Morbid (severe) obesity due to excess calories TECHNIQUE: Real-time grayscale ultrasound imaging of the abdomen was performed and images were reviewed. COMPARISON: There are no prior studies available for comparison. FINDINGS: Liver: The right lobe of the liver measures 20.1 cm in size. The left lobe of the liver measures 14.3 cm in size. The liver demonstrates increased echotexture, consistent with steatosis. No focal mass or intrahepatic biliary ductal dilatation is identified. There is normal hepatopedal flow in the portal vein. Ultrasound elastography of the liver was performed with 10 separate measurements of the liver parenchyma with the patient in the supine position. Measurements were obtained approximately 2 cm below Chidi's capsule and perpendicular to the capsule. The median shear wave velocity is 1.01 m/s. The interquartile range/median (IQR/median) is 0.24. Gallbladder and biliary tree: The gallbladder is surgically absent. The common bile duct is normal in caliber measuring 7 mm. Kidneys: The right kidney measures 11.5 cm in length. The left kidney measures 11.5 cm in length. The kidneys are unremarkable, without evidence of masses, hydronephrosis, or calculi. Pancreas: The pancreatic head, neck, and body are unremarkable. The pancreatic tail is obscured by bowel gas. Spleen: The spleen is normal in size and contour, measuring 9.3 cm in length. Abdominal aorta and inferior vena cava: The visualized portions of the abdominal aorta and inferior vena cava are normal in caliber. There is no free fluid in the abdomen. US/US abdomen comp w elastography IMPRESSION: Hepatomegaly and hepatic steatosis. The median shear wave velocity in the liver is 1.01 m/s, corresponding to a median liver stiffness of 3.1 kPa. The IQR/median value is 0.24. This is indicative of a quality data set. Findings are indicative of a normal elastography value with a low likelihood of severe fibrosis or cirrhosis. REFERENCE: Society of Radiologists in Ultrasound Liver Stiffness Thresholds (2019): LIVER STIFFNESS THRESHOLDS: *Shear wave velocity less than 1.3 m/s (Liver Stiffness equal or less than 5 kPa): High probability of being normal. *Shear wave velocity less than 1.7 m/s (Liver Stiffness less than 9 kPa): In the absence of other known clinical signs, rules out compensated advanced chronic liver disease. *Shear wave velocity between 1.7-2.1 m/s (Liver Stiffness 9-13 kPa): Suggestive of compensated advanced chronic liver disease but need further test for confirmation. *Shear wave velocity between 2.1-2.4 m/s (Liver Stiffness 13-17 kPa): Rules in compensated advanced chronic liver disease. *Shear wave velocity greater than 2.4 m/s (Liver Stiffness over 17 kPa): Suggestive of clinically significant portal hypertension. QUALITY OF DATA SET: *IQR/Median value equal or less than 0.30 implies a quality data set. *IQR/Median value over 0.30 implies a poor quality data set. SIGNIFICANT CHANGE FROM PRIOR EXAM: Significant change if liver stiffness measurement is 10% or greater from prior exam. OTHER CONSIDERATIONS: The stage of liver fibrosis may be overestimated in the setting of acute hepatitis, liver inflammation, elevated liver function tests, hepatic vascular congestion, obstructive cholestasis, non-fasting state, and infiltrative diseases such as amyloidosis and lymphoma. In some patients with NAFLD, the liver stiffness thresholds for compensated advanced chronic liver disease may be lower. In causes other than viral hepatitis and NAFLD, liver stiffness thresholds are not well established. Electronically signed by: Mauri Tripp MD 08/11/2025 08:52 AM EDT
--- OUTSIDE RECORDS SUMMARY | 2025-08-11 08:31 | XMS_ITS | Clinical Summary ---
Author Organization [facility] Address [address] [place] [phone] Phone Care Team Providers Care Relations Specialist Name Role Phone Maciej Curran Primary Care [...] ,Shortness Of Breath,Tinnitus High 01/21/2022 Medications rizatriptan (MAXALT-FLIGHT TOWER DISPATCHER) 10 MG disintegrating tabletIndications: Intractable migraine with [...] 60 MG 24 hr tablet Acti ve mdfpktfhdhqz-Lp-at on-minerals Tab Take by mouth. Active metFORMIN [...] Description 06/16/2025 3:00 PM EDT Office Visit [facility] Neurology [address] [place] [address] Alessandra Deal FNP Intractable migraine with aura without status migrainosus (Primary Dx); Chronic daily headache from Last 3 Months Social History Tobacco [...] Info) Description 09/22/2025 3:30 PM EST Telemedicine [facility] Neurology [address] [place], [place] [phone] Alessandra Deal, DEB 15 [facility], 2nd [place] [address] [email or web address] Health Maintenance Due Date Last Done Comments [...] topic Medical Devices Not on file Insurance [employer] BENEFITS ADMINISTRATORS [employer] ADMINISTRATORS [employer] ADMINISTRATORS [employer] BENEFITS ADMINISTRATORS [employer] ADMINISTRATORS [employer] ADMINISTRATORS Care Teams Relations Specialist Relationship Specialty Start Date End Date Maciej Curran PA [address] [place] [address] PCP - General Physician Clinical Research Assistant 05/07/24 Additional Source Comments The information contained in this document represents components of the legal health record. It is not the complete legal health record.[facility]
--- OUTSIDE RECORDS SUMMARY | 2025-08-11 08:31 | XMS_ITS | Encounter Summary ---
Author Organization [facility] Address [address] [place] [address] Phone Care Team Providers Care Quality Control Specialist Name Role Phone Maciej Curran Primary Care Provider + Encounter Details Date Type Department Care Team (Late st Contact Info) Description 12/04/2024 Telephone [facility] OBGYN Gynecology Resident [address] [place], [place] [phone] Amy Oleary [place], [place] [address] [place] [address] [email or web address] Social History Tobacco Use Types Packs/Day [...] Info) Description 09/22/2025 3:30 PM EST Telemedicine [facility] Neurology [address] [place] [address] Alessandra Deal FNP 15 [facility], 2nd [place] [address] [email or web address] documented as of this encounter Visit Diagnoses Not on filedocumented in this encounter Care Teams Quality Control Specialist Relationship Specialty Start Date End Date Maciej Curran PA [address] [place] [address] PCP - General Physician Fuse Coiler 05/07/24 documented as of this encounter Additional Source Comments The information contained in this document represents components of the legal health record. It is not the complete legal health record.[facility]
--- OUTSIDE RECORDS SUMMARY | 2025-08-11 08:33 | XMS_ITS | Clinical Summary ---
Author Organization [facility] Address [address] [place] [address] Care Team Providers Care Community Mental Health Social Worker Name Role Phone Maciej Curran Primary [...] schedule II opioid drug. 02/22/20 23 Active wgducaafzfuj-Hh-rn on-minerals tablet Take by mouth. Active NIFEdipine [...] tablet Take by mouth. Activ e rizatriptan [employer] OFFICER ([employer] OFFICER) 10 mg disintegrating tablet Take 10 [...] 07/01/2025 2:30 PM EDT Scheduled Telephone Visit [facility] Department of Obstetrics and Gynecology [address] [place] [phone] Sarah Hamilton MD Endometriosis (Primary Dx) from [...] 2018 HPV/Cotest 2018 COVID-19 Vaccine ( season) 2025 10/21/2021, 11/04/2020, 10/14/2020 Influenza Vaccine [...] ANTHEM - OUT OF STATE Care Teams Community Mental Health Social Worker Relationship Specialty Start Date End Date Maciej Curran PA [address] [place] [phone] PCP - General Primary Care 12/26/24
[2025-08-11 10:21] LABS: Alanine Aminotransferase 27 U/L (0-31); Albumin Level 4.3 g/dL (3.5-5.0); Alkaline Phosphatase 67 U/L (39-117); Anion Gap 15 (12-20); Aspartate Amino Transferase 19 U/L (5-31); Blood Urea Nitrogen 12 mg/dL (9-16); Calcium 9.4 mg/dL (8.4-10.2); Carbon Dioxide 23 mmol/L (22-29); Chloride 106 mmol/L (96-108); Estimated Glomerular Filt Rate > 60; Potassium 4.0 mmol/L (3.3-5.1); Sodium 140 mmol/L (135-145); Total Protein 7.3 g/dL (6.5-8.0)
== END 2025-08-11 08:17 | disposition home or self-care (01) ==
LOC: HO.US 08:16
PROVIDERS: Absent Provider Physician Assistant; PCP Physician Assistant; Visit Provider Surgery
DX: I10 Essential (primary) hypertension (principal); E66.01 Morbid (severe) obesity due to excess calories; K21.9 Gastro-esophageal reflux disease without esophagitis; E88.819 Insulin resistance, unspecified; Z13.1 Encounter for screening for diabetes mellitus
CPT/HCPCS: 36415; 76700; 76981; 80053; 83036; 83525

== ENCOUNTER → 2025-08-11 08:16 | Outpatient (BNV) | payer OTHER, SELFPAY | PROVIDERS: Absent Provider Physician Assistant; PCP Physician Assistant; Visit Provider Radiology Diagnostic Radiology | DX: K76.0 Fatty (change of) liver, not elsewhere classified (principal); R16.0 Hepatomegaly, not elsewhere classified | CPT/HCPCS: 76700 ==

== ENCOUNTER 2025-08-22 08:16 | Outpatient (AMB) | payer OTHER, SELFPAY ==
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
--- OUTSIDE RECORDS SUMMARY | 2025-08-22 08:20 | XMS_ITS | Encounter Summary ---
Author Organization [facility] Address [address] [place] [phone] Phone Care Team Providers Care Orthotics Assistant Name Role Phone Maciej Curran Primary Care Provider + Encounter Details Date Type Department Care Team (Late st Contact Info) Description 12/04/2024 Telephone [facility] OBGYN Gynecology Resident [address] [place], [place] [phone] Amy Oleary [place], [place] [address] [place] [phone] [email or web address] Social History Tobacco Use Types Packs/Day Years [...] Info) Description 09/22/2025 3:30 PM EST Telemedicine [facility] Neurology [address] [place] [address] Alessandar Deal FNP 15 [facility], 2nd [place] [address] [email or web address] documented as of this encounter Visit Diagnoses Not on filedocumented in this encounter Care Teams Orthotics Assistant Relationship Specialty Start Date End Date Maciej Curran PA [address] [place] [address] PCP - General Physician Practicing Dermatologist 05/07/24 documented as of this encounter Additional Source Comments The information contained in this document represents components of the legal health record. It is not the complete legal health record.[facility]
--- OUTSIDE RECORDS SUMMARY | 2025-08-22 08:20 | XMS_ITS | Clinical Summary ---
Author Organization Count includes the [facility] Address [address] [place] [phone] Care Team Providers Care Math Specialist Name Role Phone Maciej Curran Primary [...] schedule II opioid drug. 02/22/20 23 Active qpsgjtftacku-Zj-dc on-minerals tablet Take by mouth. Active NIFEdipine [...] tablet Take by mouth. Activ e rizatriptan UNIONMELT OPERATOR (MAXALT-UNIONMELT OPERATOR) 10 mg disintegrating tablet Take 10 [...] 07/01/2025 2:30 PM EDT Scheduled Telephone Visit Count includes the [facility] Department of Obstetrics and Gynecology [address] [place] [phone] Sarah Hamilton MD Endometriosis (Primary Dx) from [...] ANTHEM - OUT OF STATE Care Teams Math Specialist Relationship Specialty Start Date End Date Maciej Curran PA [address] [place] [phone] PCP - General Primary Care 12/26/24
--- OUTSIDE RECORDS SUMMARY | 2025-08-22 08:20 | XMS_ITS | Clinical Summary ---
Author Organization [facility]erged With [facility] Address [address] [place] [address] Phone Care Team Providers Care Bobtailer Name Role Phone Maciej Curran Primary Care [...] ,Shortness Of Breath,Tinnitus High 01/21/2022 Medications rizatriptan (MAXALT-TUBE AND MANIFOLD BUILDER) 10 MG disintegrating tabletIndications: Intractable migraine with [...] 60 MG 24 hr tablet Acti ve nnwhjpesepxp-Nr-cf on-minerals Tab Take by mouth. Active metFORMIN [...] 06/16/2025 3:00 PM EDT Office Visit [facility] Neurology [address] [place] [address] Alessandra Deal FNP Intractable migraine with aura [...] Info) Description 09/22/2025 3:30 PM EST Telemedicine [facility] Neurology [address] [place], [place] [phone] Alessandra Deal, DEB 15 [facility], 2nd [place] [address] Health Maintenance Due Date Last Done Comments [...] topic Medical Devices Not on file Insurance [employer] BENEFITS ADMINISTRATORS [employer]MINISTRAT[employer]MINISTRAT[employer] BENEFITS ADMINISTRATORS [place] [employer] ADMINISTRATORS [employer]MINISTRAT[employer] Care Teams Bobtailer Relationship Specialty Start Date End Date Maciej Curran PA [address] [place] [address] PCP - General Physician Skimmer Reverberatory 05/07/24 Additional Source Comments The information contained in this document represents components of the legal health record. It is not the complete legal health record.[facility]
[2025-08-22 08:43] VITALS: BMI 51.7
== END 2025-08-22 08:48 | disposition home or self-care (01) ==
LOC: HO.HBS 08:16
PROVIDERS: PCP Physician Assistant; Visit Provider Surgery
DX: E66.01 Morbid (severe) obesity due to excess calories (principal); Z68.43 Body mass index [BMI] 50.0-59.9, adult
CPT/HCPCS: 99214

== ENCOUNTER 2025-09-02 11:15 | Outpatient (AMB) | payer OTHER, SELFPAY ==
[2025-09-02 11:17] VITALS: BMI 51.7
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
--- OUTSIDE RECORDS SUMMARY | 2025-09-02 13:30 | XMS_ITS | Clinical Summary ---
Author Organization [facility] Address [address] [place] [phone] Phone Care Team Providers Care Sewage Treatment Plant Operator Name Role Phone Maciej Curran Primary [...] ,Shortness Of Breath,Tinnitus High 01/21/2022 Medications rizatriptan (MAXALT-ELECTRONIC RESOURCES LIBRARIAN) 10 MG disintegrating tabletIndications: Intractable migraine with [...] 60 MG 24 hr tablet Acti ve uasfzbjffkcf-Pa-kt on-minerals Tab Take by mouth. Active metFORMIN [...] 06/16/2025 3:00 PM EDT Office Visit [facility] Neurology [address] [place] [address] Alessandra Deal FNP Intractable migraine with aura [...] Info) Description 09/22/2025 3:30 PM EST Telemedicine [facility] [address] [place] [address] Alessandra Deal, DEB 15 [facility], 2nd [place] [address] Health Maintenance Due Date Last Done Comments [...] on patient's age to complete this topic IPV VACCINES Aged Out No longer eligi ble [...] topic Medical Devices Not on file Insurance [employer] BENEFITS ADMINISTRATORS [employer] BENEFITS ADMINISTRATORS [employer] ADMINISTRATORS [employer] [place] [address] [place] [address] [employer] [facility] [place] [address] [place] [address] [employer] ADMINISTRATORS Care Teams Sewage Treatment Plant Operator Relationship Specialty Start Date End Date Maciej Curran PA [address] [place] [address] PCP - General Physician Sewer Pipe Press Operator 05/07/24 Additional Source Comments The information contained in this document represents components of the legal health record. It is not the complete legal health record.[facility]
--- OUTSIDE RECORDS SUMMARY | 2025-09-02 13:30 | XMS_ITS | Clinical Summary ---
Author Organization [facility] Address [address] [place] [phone] Care Team Providers Care Hook And Eye Attacher Name Role Phone Maciej Curran Primary Care [...] schedule II opioid drug. 02/22/20 23 Active sycjmrsyueje-Qv-cb on-minerals tablet Take by mouth. Active NIFEdipine [...] tablet Take by mouth. Activ e rizatriptan COTTON WEIGHER OPERATOR (MAXALT-COTTON WEIGHER OPERATOR) 10 mg disintegrating tablet Take 10 [...] 07/01/2025 2:30 PM EDT Scheduled Telephone Visit [facility] Department of Obstetrics and Gynecology [address] [place] [phone] Sarah Hamilton MD Endometriosis (Primary Dx) from [...] Vaccine ( season) 2025 10/21/2021, 11/04/2020, 10/14/2020 DTaP,Tdap,and Td Vaccines (2 - Td or Tdap) 05/16/2033 05/16/2023 Zoster Vaccines (1 of 2) 2038 Influenza Vaccine Completed 08/13/2025, , 08/19/2021, Additional history exists Hepatitis A Vaccines Aged Out No long er eligible based on patient's age to complete this topic MMR Vaccines Aged Out No longer eligi ble based on patient's age to complete this topic Meningococcal Vaccine Aged Out No suhail soren eligible based on patient's age to complete this topic Insurance ANTHEM - OUT OF STATE Care Teams Hook And Eye Attacher Relationship Specialty Start Date End Date Maciej Curran PA [address] [place] [phone] PCP - General Primary Care 12/26/24
--- OUTSIDE RECORDS SUMMARY | 2025-09-02 13:30 | XMS_ITS | Encounter Summary ---
Author Organization [facility] Address [address] [place] [phone] Phone Care Team Providers Care Drop Pit Worker Name Role Phone Maciej Curran Primary Care Provider + Encounter Details Date Type Department Care Team (Late st Contact Info) Description 12/04/2024 Telephone [facility] OBGYN Gynecology Resident [address] [place], [place] [phone] Amy Oleary [place], [place] [address] [place] [address] [email or web address] beds at the [facility] Social History Tobacco Use Types Packs/Day [...] Info) Description 09/22/2025 3:30 PM EST Telemedicine [facility] Neurology [address] [place] [address] Alessandra Deal FNP 15 [facility], 2nd [place] [address] [email or web address] documented as of this encounter Visit Diagnoses Not on filedocumented in this encounter Care Teams Drop Pit Worker Relationship Specialty Start Date End Date Maciej Curran PA [address] [place] [address] PCP - General Physician Tool And Machine Maintainer 05/07/24 documented as of this encounter Additional Source Comments The information contained in this document represents components of the legal health record. It is not the complete legal health record.[facility]
== END 2025-09-02 11:54 | disposition home or self-care (01) ==
LOC: HO.HPODS 11:16
PROVIDERS: PCP Physician Assistant; Visit Provider Student in an Organized Health Care Education/Training Program
DX: M79.604 Pain in right leg (principal); M79.671 Pain in right foot; M76.71 Peroneal tendinitis, right leg
CPT/HCPCS: 99204

== ENCOUNTER 2025-09-03 14:46 | Outpatient (AMB) | payer OTHER, SELFPAY ==
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
[2025-09-03 15:06] VITALS: BP 124/82; BMI 49.9
--- OUTSIDE RECORDS SUMMARY | 2025-09-03 18:13 | XMS_ITS | Clinical Summary ---
Author Organization [facility] Address [address] [place] [phone] Care Team Providers Care Switch Operators Supervisor Name Role Phone Maciej Curran Primary [...] schedule II opioid drug. 02/22/20 23 Active kamaghffajvp-Et-ls on-minerals tablet Take by mouth. Active NIFEdipine [...] tablet Take by mouth. Activ e rizatriptan DIETITIAN HELPER (MAXALT-DIETITIAN HELPER) 10 mg disintegrating tablet Take 10 mg [...] Telephone Visit [facility] Department of Obstetrics and Gynecology [address] [place] [phone] Sarah Hamilton MD Endometriosis (Primary Dx) from [...] ANTHEM - OUT OF STATE Care Teams Switch Operators Supervisor Relationship Specialty Start Date End Date Maciej Curran PA [address] [place] [id number] PCP - General Primary Care 12/26/24
--- OUTSIDE RECORDS SUMMARY | 2025-09-03 18:13 | XMS_ITS | Clinical Summary ---
Author Organization [facility] Address [address] [place] [id number] Phone Care Team Providers Care Aircraft Charter Dispatcher Name Role Phone Maciej Curran Primary Care [...] ,Shortness Of Breath,Tinnitus High 01/21/2022 Medications rizatriptan (MAXALT-STRADDLE CARRIER OPERATOR) 10 MG disintegrating tabletIndications: Intractable migraine with [...] 60 MG 24 hr tablet Acti ve hotsctuefeth-Ly-fi on-minerals Tab Take by mouth. Active metFORMIN [...] 06/16/2025 3:00 PM EDT Office Visit [facility] [address] [place] [address] Alessandra Deal FNP Intractable migraine with aura [...] Info) Description 09/22/2025 3:30 PM EST Telemedicine [facility] [address] [place] [address] Alessandra Deal, DEB [address] [facility], 2nd [place] [address] Health Maintenance Due Date Last Done Comments [...] topic Medical Devices Not on file Insurance [employer] [address] vSocial [facility] [employer] [address] [employer] Care Teams Aircraft Charter Dispatcher Relationship Specialty Start Date End Date Maciej Curran PA [address] [place] [address] PCP - General Physician Regional Director Of Finance 05/07/24 Additional Source Comments The information contained in this document represents components of the legal health record. It is not the complete legal health record.[facility]
--- OUTSIDE RECORDS SUMMARY | 2025-09-03 18:13 | XMS_ITS | Encounter Summary ---
Author Organization [facility] Address [address] [place] [phone] Phone Care Team Providers Care Management Instructor Name Role Phone Maciej Curran Primary Care Provider + Encounter Details Date Type Department Care Team (Late st Contact Info) Description 12/04/2024 Telephone [facility] OBGYN Gynecology Resident [address] [place], [place] [id number] Amy Oleary ELIZABETH, [place] [address] [place] [address] [email or web address] Social History Tobacco Use Types Packs/Day [...] Info) Description 09/22/2025 3:30 PM EST Telemedicine [facility] [address] [place] [address] Alessandra Deal FNP 15 [facility], 2nd [place] [address] [email or web address] documented as of this encounter Visit Diagnoses Not on filedocumented in this encounter Care Teams Management Instructor Relationship Specialty Start Date End Date Maciej Curran PA [address] [place] [address] PCP - General Physician Mitigation Supervisor 05/07/24 documented as of this encounter Additional Source Comments The information contained in this document represents components of the legal health record. It is not the complete legal health record.[facility]
== END 2025-09-03 16:04 | disposition home or self-care (01) ==
LOC: HO.HWS 14:47
PROVIDERS: PCP Physician Assistant; Visit Provider Obstetrics & Gynecology
DX: Z01.419 Encounter for gynecological examination (general) (routine) without abnormal findings (principal)
CPT/HCPCS: 99395; 99459

== ENCOUNTER 2025-09-09 07:40 | Inpatient (IN) | payer OTHER, SELFPAY ==
--- OUTSIDE RECORDS SUMMARY | 2025-08-19 19:11 | XMS_ITS | Clinical Summary ---
Author Organization [facility] Address [address] [place] [address] Phone Care Team Providers Care Fleet Technician Name Role Phone Maciej Curran Primary [...] ,Shortness Of Breath,Tinnitus High 01/21/2022 Medications rizatriptan (MAXALT-PASTE UP WORKER) 10 MG disintegrating tabletIndications: Intractable migraine with [...] 60 MG 24 hr tablet Acti ve kjjdcfboasql-Ep-wo on-minerals Tab Take by mouth. Active metFORMIN [...] 06/16/2025 3:00 PM EDT Office Visit [facility] Neurology [address] [place] [address] Alessandra Deal FNP Intractable migraine with aura [...] Info) Description 09/22/2025 3:30 PM EST Telemedicine [facility] Neurology [address] [place], [place] [phone] Alessandra Deal, DEB 15 [facility], 2nd [place] [address] [email or web address] Health Maintenance Due Date Last Done Comments [...] topic Medical Devices Not on file Insurance [employer] BENEFITS ADMINISTRATORS [employer] ADMINISTRATORS [employer] ADMINISTRATORS [employer] BENEFITS ADMINISTRATORS [employer] ADMINISTRATORS [employer] ADMINISTRATORS Care Teams Fleet Technician Relationship Specialty Start Date End Date Maciej Curran PA [address] [place] [address] PCP - General Physician Lumber Handler 05/07/24 Additional Source Comments The information contained in this document represents components of the legal health record. It is not the complete legal health record.[facility]
--- OUTSIDE RECORDS SUMMARY | 2025-08-19 19:11 | XMS_ITS | Clinical Summary ---
Author Organization [facility] Address [address] [place] [address] Care Team Providers Care Guard Captain Name Role Phone Maciej Curran Primary Care Provider [phone] Allergies Active Allergy Reactions Criticality Noted Date [...] schedule II opioid drug. 02/22/20 23 Active wudcancputeq-Gv-ts on-minerals tablet Take by mouth. Active NIFEdipine [...] tablet Take by mouth. Activ e rizatriptan VIDEOGRAPHER (MAXALT-VIDEOGRAPHER) 10 mg disintegrating tablet Take 10 mg [...] 07/01/2025 2:30 PM EDT Scheduled Telephone Visit [facility] Department of Obstetrics and Gynecology [address] [place] [phone] Sarah Hamilton MD Endometriosis (Primary Dx) from [...] ANTHEM - OUT OF STATE Care Teams Guard Captain Relationship Specialty Start Date End Date Maciej Curran PA [address] [place] [address] PCP - General Primary Care 12/26/24
--- OUTSIDE RECORDS SUMMARY | 2025-08-19 19:11 | XMS_ITS | Encounter Summary ---
Author Organization [facility] Address [address] [place] [address] Phone Care Team Providers Care Unit Receptionist Name Role Phone Maciej Curran Primary Care Provider + Encounter Details Date Type Department Care Team (Late st Contact Info) Description 12/04/2024 Telephone [facility] OBGYN Gynecology Resident [address] [place], [place] [phone] Amy Oleary [place], [place] 80 [place] [phone] [email or web address] Social History Tobacco Use Types Packs/Day [...] Info) Description 09/22/2025 3:30 PM EST Telemedicine [facility] Neurology [address] [place] [address] Alessandra Deal FNP 15 [facility], 2nd [place] [address] [email or web address] documented as of this encounter Visit Diagnoses Not on filedocumented in this encounter Care Teams Unit Receptionist Relationship Specialty Start Date End Date Maciej Curran PA [address] [place] [address] PCP - General Physician Transfer And Pumphouse Operator 05/07/24 documented as of this encounter Additional Source Comments The information contained in this document represents components of the legal health record. It is not the complete legal health record.[facility]
[2025-09-04 08:24] LABS: MANUAL DIFF FLAG NO
[2025-09-04 08:38] LABS: Hematocrit 39.1 % (37.0-47.0); Hemoglobin 12.3 g/dl (12.0-16.0); Imm Gran Abs Auto 0.04 X10*3/uL (0.00-0.03); Imm Gran Pct Auto 0.4 % (0.0-0.4); Lymphocytes Absolute Auto 2.5 X10*3/uL (1.2-4.9); Mean Corpuscular HGB Conc 31.5 g/dl (31.0-35.0); Mean Corpuscular Hemoglobin 25.6 pg (27.0-33.0); Mean Corpuscular Volume 81.5 fL (80.0-98.0); NRBC Abs Auto 0.000 X10*3/uL (0.0-0.012); NRBC Pct Auto 0.0 /100WBC (0.0-0.2); Platelet Count 423 X10*3/uL (160-400); Red Blood Count 4.80 X10*6/uL (4.20-5.50); White Blood Count 9.3 X10*3/uL (4.8-10.8)
[2025-09-04 08:45] LABS: INTERNATIONAL NORM RATIO 1.1 (0.9-1.1); Prothrombin Time 13.2 SEC (11.2-13.5)
[2025-09-04 08:48] LABS: Partial Thromboplastin Time 33.5 SEC (26.7-34.1)
[2025-09-04 09:26] LABS: Alanine Aminotransferase 34 U/L (0-31); Albumin Level 4.7 g/dL (3.5-5.0); Alkaline Phosphatase 66 U/L (39-117); Anion Gap 15 (12-20); Aspartate Amino Transferase 24 U/L (5-31); Blood Urea Nitrogen 14 mg/dL (9-16); Calcium 9.6 mg/dL (8.4-10.2); Carbon Dioxide 22 mmol/L (22-29); Chloride 109 mmol/L (96-108); Cholesterol 153 mg/dL (<200); Estimated Glomerular Filt Rate > 60; HDL Cholesterol 35 mg/dL (>40); Potassium 4.1 mmol/L (3.3-5.1); Sodium 142 mmol/L (135-145); Total Protein 7.6 g/dL (6.5-8.0); Triglycerides 130 mg/dL (<150)
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
[2025-09-05 11:28] VITALS: BMI 49.9
[2025-09-09] VITALS (19 sets, daily range): BP systolic 116–152; BP diastolic 55–113; PULSE 65–99; RESP 10–20; TEMP 35.8–37; O2SAT 92–99; BMI 49.4
[2025-09-09] MEDS: Lactated Ringers 1,000 ML 999 ML IV (07:31)
[2025-09-09] MEDS: Aprepitant 32 MG/4.4 ML VIAL IVPUSH (07:36)
--- NOTE | 2025-09-09 07:36 | P.HPSUR_ITS ---
Pre-Procedural Eval Section A - 24 Hr Update-Section A only Date of Service: 09/09/25 The patient is an INPATIENT: No The patient has been examined within 24 hours of the surgical procedure. The History & Physical has been completed within 30 days and I have reviewed it.: Yes Section B - Complete if H&P > 30 days Chief Complaint: Morbid (severe) obesity due to excess calories Relevant Family History (Specify if Yes): No Relevant Social History: None Present Medications: None Medical History: No relevant PMH History of Previous Operations: No relevant previous surgery Allergies: Allergies Allergy/AdvReac Type Severity Reaction Status Date / Time oxycodone Allergy Severe Anaphylaxis Verified 09/05/25 11:34 amitriptyline Allergy Intermediate Confusion Verified 09/05/25 11:34 and night terrors. codeine Allergy Intermediate vomiting, Verified 09/05/25 11:34 itching duloxetine Allergy Intermediate paresthesia Verified 09/05/25 11:34 and tardive diskinesia topiramate Allergy Intermediate chest Verified 09/05/25 11:34 pain, palpitations, confusion, tinnitus. nortriptyline AdvReac Severe hallucinations, Verified 09/05/25 11:34 joint stiffness, confusion sumatriptan AdvReac Intermediate Migraine Verified 09/05/25 11:34 Review of Systems Sugical H&P ROS: Negative: Constitution, Cardiovascular, Respiratory, Neurol ogical, Psychiatric, Hem-Onc, Allergic/Immunologic, Gastrointestinal, Genitourinary, Musculoskeletal, Integumentary, Endocrine and Eyes/Ears/Nose/Throat Exam Surgical H&P Exam: Normal: HEENT, Normal: Heart, Normal: Lungs, Normal: Extremities, Normal: Abdomen, Normal: Skin and Normal: Neurological Plan Diagnosis/Plan: Unchanged I have reviewed the history and physical and performed a pertinent physical examination on my patient. No changes have occurred unless specified. Time Spent With Patient Time: Total time managing care of this patient today ____ minutes.
--- NOTE | 2025-09-09 08:12 | P.BOP_ITS ---
Brief Operative Note Date of Service: 09/09/25 Pre-op diagnosis: Morbid obesity with comorbidities (see below) Post-op diagnosis: same Procedure: INITIAL PATIENT BMI ON PRESENTATION AT OUR OFFICE: 56.2 kg/m2 LAST BMI BEFORE SURGERY: 50.6 kg/m2 COMORBIDITIES: GERD, asthma, hypertension, migraines, anxiety, endometriosis, liver steatosis ?The patient presented to the Weight Management Program with significant obesity that was negatively impacting the patient's comorbidities as listed above.? The program is a phased program with a special focus on preoperative medical weight management to promote substantial weight loss and prepare the patients for the second phase of the program: bariatric surgery. The patient participated in an intensive weekly lifestyle ?intervention and exercise program during which the patient ?has lost between the initial office visit and the last preoperative visit 34 lbs, or 10.4% of initial actual body weight. It was deemed appropriate for the patient to now have bariatric surgery. In light of the current Covid-19 pandemic and the well documented strong association of obesity and increased risk of worse outcomes if infected with Covid-19 (REFERENCES: https://pubmed.ncbi.nlm.nih.gov/32159323/ ,? https://pubmed.ncbi.nlm.nih.gov/21296586/ ), any delay in undergoing bariatric surgery may lead to the patient's worsening health condition and increased?risk of more severe Covid-19 disease if infected. In addition a recent?study from [facility] published in [employer] [facility] on 10/18/2021 ([email or web address]) found that, among patients with obesity, substantial weight loss achieved with surgery was associated with improved outcomes of COVID-19 infection. The findings suggest that obesity can be a modifiable risk factor for the severity of COVID-19 infection. In addition, the patient met the BMI-criteria for bariatric surgery based on the BMI on initial presentation. The patient should not be penalized for achieving such weight loss because ?it is not sustainable long-term without surgical intervention and it was achieved in preparation for bariatric surgery ?under my direction and based on my published research ([email or web address]).[email or web address] and? https://www.soard.org/article/[email or web address](27)13958-X/pdf ) ?that a 10% preoperative weight loss improves long-term weight loss after surgery and reduces perioperative complications.? Insurance carriers such as [facility] have endorsed my recommendations ?and have included in their policies criteria to include a 10% preoperative weight loss requirement. PROCEDURE: Esophago-gastroscopy, laparoscopic sleeve gastrectomy and laparoscopic gastropexy INDICATIONS: This is a 34 year-old female who was electively scheduled for laparoscopic, possibly open sleeve gastrectomy. The risks and complications of the procedure were discussed with the patient in advance, particularly the possibility of ; pulmonary embolism; staple line leak; bleeding; GERD; cardiac, pulmonary, or renal complications; as well as long-term problems such as insufficient weight loss, vitamin deficiency, strictures, or ulcers. The patient understood all the risks, and was in agreement to proceed with surgery. DESCRIPTION OF PROCEDURE: After informed consent was obtained from the patient, the patient was given preoperative antibiotics, and was transferred to the operating room. After successful induction of general anesthesia, pneumatic compression devices were placed on both lower extremities. An upper endoscopy was performed next. The oropharynx and esophagus appeared to be within normal limits. There was no diaphragmatic hernia present. The stomach was entered. Then after all fluid and air were suctioned and the stomach was fully decompressed, the scope was withdrawn and secured in the mid esophagus. The patient was then prepped and draped in the usual sterile manner, and abdomin al access was established at the right upper quadrant with the Annelise technique. A 12 mm blunt port was inserted, and the abdomen was insufflated with CO2 to a pressure of 15 mmHg. Under direct visualization, additional ports were placed, specifically two 5 mm Versi-step ports to the left upper quadrant, and a 5 mm Versi-Step port to the right upper quadrant. 1% lidocaine plain was used to infiltrate all port sites as well as all fascia defects. Following that, the patient was placed in a steep reverse Trendelenburg position. An additional 5 mm port was placed to the right flank for the Mediflex retractor that was used to retract the left lobe of the liver. The gastro-esophageal fat pad was opened with the ultrasonic device (Thrubyerbejohnathan, Olympus) and the anterior esophagus and hiatus were exposed. The angle of His was opened with the ultrasonic device the fundus of the stomach from any diaphragmatic and splenic attachments. I then opened the gastrocolic ligament between the transverse colon and the greater curvature of the stomach with the ultrasonic device to enter the lesser sac and facilitate the ligation of the short gastric vessels. I started at a mid-point along the greater curvature and using the Thunderbeat, all short gastric vessels were divided all the way to the angle of His until the left irasema was completely dissected at its entirety. I then divided the gastro-colic ligament distally to a distance of about 3-4 cm proximal to the pylorus. ? The stomach was then divided transversely with three Endo MAYNOR-45 purple and three MAYNOR-60 articulating purple loads using the ActuatedMedical stapler and loads. Every effort was made that the gastric sleeve had a tubular shape and an even caliber throughout. Once the sleeve resection was completed, the staple line of the gastric sleeve was reinforced with Hemoclips. The resected stomach was retrieved without difficulty from the Annelise port. A gastropexy was then performed in order to prevent postoperative GERD and partial gastric volvulus. Several interrupted 2.0 Surgidac sutures were placed between the sleeve's staple line and the previously divided greater omentum and gastro-colic ligament using the Endo-Stitch device. ?An upper endoscopy was performed. There was no narrowing at the GE junction. The scope was easily advanced all the way to the pylorus which was clearly visualized. There was no narrowing anywhere and the sleeve's caliber was even throughout. The sleeve's staple line was inspected and there was no evidence of ischemia, bleeding or dehiscence. At that point the gastroscope was withdrawn from the patient?s mouth while we were decompressing the bowel and the stomach from any remaining air. I looked into the lesser sac to see how the sleeve was situating and it was situating well. There was no bleeding from the staple line, spleen, or short gastric vessels. The Mediflex retractor was removed, and the undersurface of the liver was inspected and there was no bleeding. The patient was placed in supine position. I closed the fascial defect of the 12 mm port site with a figure of eight #1 Polysorb suture. Then 30cc Ropivacaine plain with 10 mg of Dexamethasone were used to infiltrate the fascial closure as well as all skin incisions. At this point, the abdomen was deflated, all ports were removed under direct vision, and no bleeding was noted from any of the port sites. The skin incisions were irrigated with saline and were closed with 4-0 absorbable monofilament sutures. Steri-Strips and OpSites were used to cover all incisions. The patient was extubated and was transferred in stable condition to the recovery room for further care. I was present and performed all pettit parts of the procedure. Ms. Fagan was the cafe assistant. There were no residents to assist with this case. Román Gatica MD, PhD, FACS Surgeon: Sarthak Gatica MD Was an Test Center Manager used for this Procedure?: No Test Center Manager: Carol Fagan Estimated blood loss (mL): 10 IV fluids (mL): 2,000 Urine output (mL): 0 (No Hinds to record output) Pathology: other (1) Stomach, 2) gastro-esophageal fat pad) Condition: stable Disposition: PACU
--- NOTE | 2025-09-09 08:16 | P.PNGS_ITS ---
Subjective Subjective Date of Service: 09/10/25 Interval history: Feels well. Mild incisional pain. She is tolerating phase 1 bariatric diet Physical Exam 2 Vital Signs: Vital Signs: Last Vital Signs Temp 96.4 F L 09/09/25 07:13 Pulse 75 09/09/25 07:13 Resp 16 09/09/25 07:13 BP 144/73 H 09/09/25 07:13 Pulse Ox 97 09/09/25 07:13 O2 Del Method Room Air 09/09/25 07:13 BMI result Body Mass Index 49.4 GI: Inspection: Yes normal to inspection, Yes incision (clean, dry and intact) and Yes obesity Palpation (GI): Soft to palpation Extrem: Right lower extremity: normal to inspection (no calf tenderness) L eft lower extremity: normal to inspection (no calf tenderness) Objective Data Active Medications Albuterol Sulfate (Albuterol Sulfate (0.083%) 2.5 Mg/3 Ml Vial.Neb) 2.5 mg INHALE ONCE PRN PRN Reason: Shortness of Breath/Wheezing Lactated Ringer's (Lr) 1,000 mls @ 100 mls/hr IVCONT .Q10H EBONI Lactated Ringer's (Lr) 1,000 mls @ 999 mls/hr IV .Q1H1M EBONI Stop: 09/09/25 09:30 Last Admin: 09/09/25 07:31 Dose: 999 mls/hr Documented By: RAISSA Labs 09/10/25 05:52 09/10/25 05:52 Procedures Date of Service Date of Service: 09/10/25 Progress Note: A&P Assessment and plan (1) Morbid obesity: Status: Acute Assessment and Plan: s/p laparoscopic sleeve gastrectomy, and gastropexy Doing well Will check am labs and if OK the patient will be discharged home (2) HTN (hypertension): Status: Acute (3) GERD (gastroesophageal reflux disease): Status: Acute (4) Endometriosis: Status: Acute (5) Migraines: Status: Acute (6) Steatosis, liver: Status: Acute (7) Exercise-induced asthma: Status: Acute (8) SANDY (generalized anxiety disorder): Status: Acute (9) S/P laparoscopic sleeve gastrectomy: Status: Acute Time Spent With Patient Time: Total time managing care of this patient today ____ minutes. Quality Stroke Does the patient have a stroke diagnosis?: No VTE Prior VTE?: No VTE Risk Level:: Surgical - moderate VTE Device Contraindication: N/A - Device Ordered VTE Drug Contraindication: Treatment Not Indicated
[2025-09-09 12:13] LABS: Hematocrit 39.2 % (37.0-47.0); Hemoglobin 12.5 g/dl (12.0-16.0)
[2025-09-09 12:27] LABS: Anion Gap 12 (12-20); Blood Urea Nitrogen 14 mg/dL (9-16); Calcium 9.6 mg/dL (8.4-10.2); Carbon Dioxide 22 mmol/L (22-29); Chloride 108 mmol/L (96-108); Creatinine Clr Calc Pharmacy 107.6; Estimated Glomerular Filt Rate > 60; Potassium 4.4 mmol/L (3.3-5.1); Sodium 138 mmol/L (135-145)
--- NOTE | 2025-09-09 13:49 | PHA.MEDREC ---
Addendum entered by Kane Rosales [facility] 09/09/25 14:54: med rec reviewed Addendum entered by Florian Castellanos 09/09/25 14:25: Pt not taking Metformin anymore; states Dr stopped it ~2weeks ago for the surgery and pt not sure if she is going back on that med. Original Note: Pharmacy Consult ? Medication Reconciliation Pharmacy has completed the medication reconciliation. Spoke with pt and she confirmed her medications. Pt uses Ketoconazole Shampoo as needed for dry skin, she has in the Mirena control and got it inserted December 2023, pt got Sucralfate liquid to start after surgery.
--- NOTE | 2025-09-09 13:52 | P.DS_ITS ---
DS: Providers Provider Date of Service: 09/10/25 Date of admission: 09/09/25 07:40 Date of discharge: 09/10/25 Primary care physician: Maciej Curran PA-C DS: Diagnosis Discharge Diagnosis (1) Morbid obesity: Status: Acute (2) HTN (hypertension): Status: Acute (3) GERD (gastroesophageal reflux disease): Status: Acute (4) Endometriosis: Status: Acute (5) Migraines: Status: Acute (6) Steatosis, liver: Status: Acute (7) Exercise-induced asthma: Status: Acute (8) SANDY (generalized anxiety disorder): Status: Acute DS: Summary Hospital Course Hospital Course: ADMITTING DIAGNOSIS: morbid obesity DISCHARGE DIAGNOSIS: same, s/p laparoscopic sleeve gastrectomy with gastropexy PAST HISTORY:? Medical History Morbid obesity HTN (hypertension) Gestational diabetes mellitus Myoma Dysplasia of cervix, low grade (RAÚL 1) Endometrioma of ovary Complex cyst of left ovary ASCUS with positive high risk HPV cervical Pancreatic insufficiency Exercise-induced asthma Fibroid Endometriosis HPV (human papilloma virus) anogenital infection Anxiety GERD (gastroesophageal reflux disease) Exocrine pancreatic insufficiency Migraine headache Surgical History Hx of dilation and curettage Hx of colonoscopy History of esophagogastroduodenoscopy (EGD) H/O bilateral salpingectomy H/O section History of laparoscopic cholecystectomy H/O ovarian cystectomy History of gynecologic surgery [place] teeth extracted Hx of laparoscopy ? PROCEDURE: upper endoscopy, laparoscopic sleeve gastrectomy with gastropexy DISCHARGE SUMMARY: History of Present Illness: The patient is a?34? year-old woman with a BMI of? 49.4 kg/m2 and associated co- morbidities as described above. The patient had extensive work-up,lost 25.4 lbs preoperatively and was electively scheduled for laparoscopic, possible open sleeve gastrectomy and gastropexy. Risks and complications of the surgery were discussed with the patient in advance, particularly the possibility of , pulmonary embolism, anastomotic leak, bleeding, bowel injury, GERD, cardiac, renal or pulmonary complications. The patient understood all the risks and was in agreement with the surgical plan. Hospital Course: The patient underwent an uneventful laparoscopic sleeve gastrectomy with gastropexy on the day of admission. Postoperatively, the patient was transferred to the surgical floor. The patient received IV Acetaminophen and IV dilaudid for pain control. Patient was started on bariatric phase 1 diet POD #0. On postoperative day one, the patient was feeling well without nausea, vomiting, fevers, or tachycardia. The patient had some mild incisional pain and the abdomen was soft.? ? On the morning of postoperative day one, the patient was continued on 1 ounce of water or ice every half hour. During the day, the patient did fairly well, having some incisional pain, but able to ambulate adequately and to tolerate liquids well. Since the patient is doing well, we decided that the patient was ready to be discharged. The patient was given instructions to follow-up with me next week and to call my office for any fever over 101, persistent abdominal pain, nausea, vomiting, GERD, symptoms of DVT such as calf tenderness, or leg swelling, or pulmonary embolism such as chest pain or shortness of breath.? The patient was also instructed to drink 40-60 ounces of liquids per day using the 1-ounce cups. The patient had been given prescriptions for Tylenol for pain, Zofran prn for nausea, and pantoprazole and carafate previously. The patient was encouraged to ambulate and use the incentive spirometer. The patient was allowed to shower, but no baths, and encouraged to stay active at home. All of these instructions were given to the patient personally. All questions were answered and the patient understood all instructions, the instructions were also given to the patient in print. Time Attestation Discharge Coordination Time (in mins): 30 Quality: Safe Use of Opioids Does Pt have an Active Cancer Diagnosis on the Problem List?: No Quality: Stroke Does the patient have a stroke diagnosis?: No Physical Exam Vital Signs: Vital Signs: Last Vital Signs Temp 97.9 F 09/09/25 12:42 Pulse 81 09/09/25 12:42 Resp 18 09/09/25 12:42 BP 150/80 H 09/09/25 12:42 Pulse Ox 96 09/09/25 12:42 O2 Del Method Nasal Cannula 09/09/25 12:42 O2 Flow Rate 2 09/09/25 12:42 BMI result Body Mass Index 49.4 DS: Data Data Completed and Pending Pending studies at discharge: Pending at discharge 09/09/25 10:52 Surgical [PTH] Routine Labs on day of discharge: Laboratory Results - last 24 hr 09/09/25 12:05 Hgb 12.5 Hct 39.2 Sodium 138 Potassium 4.4 Chloride 108 Carbon Dioxide 22 Anion Gap 12 BUN 14 Creatinine 0.97 Estim Creat Clear Calc 107.6 Estimated GFR > 60 Random Glucose 138 H Calcium 9.6 Discharge Plan Discharge Anticipated Discharge Date/Time: 09/10/25 10:00 Patient Disposition: Home, Self-Care Discharge Diagnosis: s/p laparoscopic sleeve gastrectomy with gastropexy Referrals: Maciej Curran PA-C [Primary Care Provider, Internal Medicine] - 1 Week Discharge Medications: Continued zolmitriptan [Zomig] 5 mg spray,non-aerosol 1 spray intranasal Q2H PRN (Reason: headache) 30 Days Qty: 12 3RF Rx Instructions: administer into one nostril (only); alternate nostrils; do not exceed 10 mg /24 hrs albuterol sulfate 90 mcg/actuation HFA aerosol inhaler 1 inh inhalation QID PRN (Reason: shortness of breath or wheezing) 30 Days Qty: 8.5 1RF ketoconazole 2 % shampoo 1 appl topical DAILY PRN (Reason: Dry Scalp) pantoprazole 40 mg tablet,delayed release (DR/EC) 40 mg PO DAILY@0630 ondansetron 4 mg tablet,disintegrating 4 mg PO Q12H PRN (Reason: Nausea And Vomiting) cetirizine 10 mg tablet 10 mg PO DAILY Mirena 21 mcg/24 hours (8 yrs) 52 mg intrauterine device 21 mcg intrauterine PER PKG DIR Rx Instructions: Patient got Mirena December 2023. Qulipta 60 mg tablet 60 mg PO DAILY rizatriptan 10 mg tablet,disintegrating 10 mg PO DAILY PRN (Reason: Migraine Headache) Held nifedipine 60 mg tablet extended release 24hr 60 mg PO DAILY Qty: 60 3RF Hold Instructions: Resume on 09/11/25. Check your blood pressure every morning as soon as you wake up and send it to Dr. Gatica. Do no take the blood pressure medication if the blood pressure is below 120/70. Wait every day to hear back from Dr. Gatica before you take the medication. propranolol 120 mg capsule,extended release 24 hr 120 mg PO DAILY Hold Instructions: Resume on 09/11/25. Check your blood pressure every morning as soon as you wake up and send it to Dr. Gatica. Do no take the blood pressure medication if the blood pressure is below 120/70. Wait every day to hear back from Dr. Gatica before you take the medication. Orilissa 150 mg tablet 150 mg PO DAILY Hold Instructions: Resume on 10/09/25. Discontinued magnesium oxide 400 mg magnesium tablet 400 mg PO BEDTIME 30 Days Qty: 30 6RF riboflavin (vitamin B2) 400 mg tablet 400 mg PO DAILY 30 Days Qty: 30 6RF Galzin 50 mg (zinc) capsule 50 mg PO DAILY Discharge Orders: Discharge Order (Routine); Ordered 09/10/25 Ordered By: Sarthak Gatica Activity on Discharge: No heavy lifting Stand Alone Forms: Patient Portal Discharge page Print Language: Yi Care Plan Goals: weight loss Health Concerns: morbid obesity Plan of Treatment: No tub baths, sex or returning to work until discussed at first post op appointment. No alcohol, tobacco or illegal drug use. Continue to use incentive spirometer hourly while awake. Walk in home for 5- 10 minutes every 2 hours during the first week. Wear abdominal binder with activity. Follow all meal plan instructions from your bariatric surgeon. Review bariatric handbook and call with any questions. Discharge Instructions 1. Please call your doctor or come back to the emergency room should any new symptoms arise. 2. Activity: abstain from alcohol,? limited stair climbing, no bending, no driving, no exercise, no illicit substances, no lifting, no sex, no tub bath, no work. 4. Diet: follow your bariatric surgeon's recommendations for advancing diet. 5. Dressing Change/Wound Care: Your incisions are covered with waterproof dressings. You can shower with these and pat dry. Do not rub over dressings or incisions. If the area is tender, you may apply an ice pack for short intervals (no more than 20 minutes on, followed by at least 20 minutes off). Do not apply heat. Do not use creams, lotions, or topical antibiotics unless instructed to do so by your surgeon. 6. Call your doctor if: - Your temperature exceeds 101.5 F - You experience excessive pain or swelling - You have an unexpected reaction to medication - You have excessive bleeding - You experience continued vomiting/nausea - Your incision begins to separate - Your incision shows signs of infection such as increased redness, swelling, excessive pain, heat, or drainage (light blood or clear fluid is normal) General instructions: No lifting greater than 10 lbs for the next 6 weeks[address] driving within 24 hours of taking narcotic pain medications. If you do not move your bowels in the next 2 days, please take milk of magnesia over the counter. Please follow the post op diet and do not advance your diet until instructed by your surgeon or until you are seen in the office in about 1 week. Please walk around your home every hour or two to prevent blood clots from forming in your legs. You do not need to wake from sleeping to walk. Please sleep in a bed or couch to prevent kinking at the hips and knees. Please take your incentive spirometer (your lung electrical engineering technician) home with you and use it for the next few days to prevent pneumonias. You may shower; no hot tubs, baths or swimming pools. Please make sure you are consuming 40-60 ounces of total fluids per day. Avoid all carbonation. Please call the office with any questions or concerns such as increasing abdominal pain, fever, chills, shortness of breath, chest pain, leg pain or swelling, or redness or drainage from your incisions. Do not hesitate to contact the office with any questions at . The patient's medical history has been reviewed and they are considered low risk for post op DVT and therefore DVT prophylaxis is not considered necessary. Travel after surgery was reviewed. The patient has not disclosed any travel plans during the first 30 days after surgery and they have been advised that within the first 30 days after surgery any bus, plane, train or car travel over 2 hours in duration is contraindicated due to the possibility of developing blood clots from immobility. Any travel, needs to include periods of ambulation of 10 minutes in duration every 2 hours.? The patient was instructed to discuss any plans for travel during this period with their bariatric surgeon. Assessment: s/p laparoscopic sleeve gastrectomy with gastropexy Discharge Date/Time: 09/10/25 09:10
[2025-09-09] MEDS: Lactated Ringers 1,000 ML 100 ML IVCONT ×2 (14:20→22:21)
[2025-09-09] MEDS: 0.9 % Sodium Chloride Flush 3 ML SYRINGE IVFLUSH (22:13)
[2025-09-10 03:39] VITALS: BP 136/67; PULSE 56; RESP 20; TEMP 35.9; O2SAT 95
[2025-09-10 06:00] LABS: MANUAL DIFF FLAG NO
[2025-09-10 06:07] LABS: Hematocrit 34.1 % (37.0-47.0); Hemoglobin 10.7 g/dl (12.0-16.0); Imm Gran Abs Auto 0.04 X10*3/uL (0.00-0.03); Imm Gran Pct Auto 0.4 % (0.0-0.4); Lymphocytes Absolute Auto 1.9 X10*3/uL (1.2-4.9); Mean Corpuscular HGB Conc 31.4 g/dl (31.0-35.0); Mean Corpuscular Hemoglobin 25.4 pg (27.0-33.0); Mean Corpuscular Volume 81.0 fL (80.0-98.0); NRBC Abs Auto 0.000 X10*3/uL (0.0-0.012); NRBC Pct Auto 0.0 /100WBC (0.0-0.2); Platelet Count 338 X10*3/uL (160-400); Red Blood Count 4.21 X10*6/uL (4.20-5.50); White Blood Count 11.1 X10*3/uL (4.8-10.8)
[2025-09-10 06:18] LABS: Anion Gap 12 (12-20); Blood Urea Nitrogen 12 mg/dL (9-16); Calcium 9.2 mg/dL (8.4-10.2); Carbon Dioxide 24 mmol/L (22-29); Chloride 107 mmol/L (96-108); Creatinine Clr Calc Pharmacy 141.1; Estimated Glomerular Filt Rate > 60; Potassium 4.1 mmol/L (3.3-5.1); Sodium 139 mmol/L (135-145)
[2025-09-10] MEDS: 0.9 % Sodium Chloride Flush 3 ML SYRINGE IVFLUSH (07:09)
[2025-09-10 07:16] VITALS: BP 106/58; PULSE 68; RESP 17; TEMP 36.7; O2SAT 95
--- NOTE | 2025-09-10 08:10 | HO.POSTANES ---
Post Anesthesia Evaluation Post Anesthesia Evaluation Date of Service: 09/10/25 Vital Signs: Vital Signs Temp Pulse Resp BP Pulse Ox O2 Del Method 09/10/25 07:16 98.1 F 68 17 106/58 L 95 Room Air 09/10/25 03:39 96.7 F L 56 20 136/67 95 Room Air 09/09/25 23:27 98.2 F 65 16 121/58 L 96 Room Air 09/09/25 22:13 18 09/09/25 20:27 98.6 F Anesthesia: General Mental Status: Awake Pain Control: Satisfactory Nausea/Vomiting: None Hydration: Adequate Anesthesia-Related Issues: No Anes. Related Issues
--- NOTE | 2025-09-10 08:49 | MHC.CM.PN ---
S/P Gastrica sleeve Lives w family independent all functional mobility DP Home self care private transport
== END 2025-09-10 09:10 | disposition home or self-care (01) | DRG 403 ==
LOC: HO.SSSA 08:43 → HO.S3 11:40
PROVIDERS: Nurse Practitioner; Physician Assistant Surgical; Admitting Provider Surgery; PCP Physician Assistant; Visit Provider Surgery
PROC: 0DB64Z3 Excision of Stomach, Percutaneous Endoscopic Approach, Vertical (ICD-10-PCS; CPT 43845; principal; 2025-09-09 08:30)
DX: E66.01 Morbid (severe) obesity due to excess calories (principal); K76.0 Fatty (change of) liver, not elsewhere classified; F41.1 Generalized anxiety disorder; G43.909 Migraine, unspecified, not intractable, without status migrainosus; J45.909 Unspecified asthma, uncomplicated; K21.9 Gastro-esophageal reflux disease without esophagitis; Z71.6 Tobacco abuse counseling; Z68.43 Body mass index [BMI] 50.0-59.9, adult; N80.9 Endometriosis, unspecified; Z79.899 Other long term (current) drug therapy
CPT/HCPCS: 36415; 80048; 80053; 80061; 84443; 85014; 85018; 85025; 85610; 85730; 86140; 86850; 86900; 86901; 88304; 88307; 88342; A4649; C9145; J0131; J0690; J1100; J1171; J1308; J1885; J2003; J2250; J2371; J2405; J2704; J2765; J2795; J3010; J7120

== ENCOUNTER → 2025-09-09 07:40 | Outpatient (BNV) | payer OTHER, SELFPAY | PROVIDERS: Admitting Provider Surgery; PCP Physician Assistant; Visit Provider Surgery | DX: E66.813 Obesity, class 3 (principal); Z68.43 Body mass index [BMI] 50.0-59.9, adult; Z98.84 Bariatric surgery status | CPT/HCPCS: 43659; 43775; 99024; 99499 ==

== ENCOUNTER 2025-09-15 09:53 | Outpatient (REF) | payer OTHER, SELFPAY ==
--- NOTE | ~2025-09-15 | US_ITS ---
EXAMINATION: US TRIPLEX LOWER EXTREMITY, BILATERAL CLINICAL INFORMATION: Bilateral lower extremity pain. COMPARISON: None available. TECHNIQUE: Color-flow triplex imaging with spectral analysis and compression Doppler were performed on the bilateral lower extremities. FINDINGS: Respiratory variation, normal compression and augmented flow are noted throughout the bilateral lower extremities. The visualized common femoral vein, superficial femoral vein, profunda femoral vein, popliteal vein and midcalf peroneal and posterior tibial venous segments show no evidence of deep venous thrombosis bilaterally. There is no Robledo's cyst. US/US venous duplex LE BI IMPRESSION: No evidence of deep venous thrombosis involving the bilateral lower extremities. Electronically signed by: Andrey Tamayo MD 09/15/2025 11:34 AM EST
--- OUTSIDE RECORDS SUMMARY | 2025-09-15 11:45 | XMS_ITS | Clinical Summary ---
Author Organization [facility] Address [address] [place] [address] Phone Care Team Providers Care Psychiatric Aide Instructor Name Role Phone Maciej Curran Primary [...] ,Shortness Of Breath,Tinnitus High 01/21/2022 Medications rizatriptan (MAXALT-RETORT KILN BURNER) 10 MG disintegrating tabletIndications: Intractable migraine with [...] 60 MG 24 hr tablet Acti ve mrbibqzjdouz-Pu-wa on-minerals Tab Take by mouth. Active metFORMIN [...] 06/16/2025 3:00 PM EDT Office Visit [facility] Neurology [address] [place] [address] Alessandra Deal FNP Intractable migraine with aura [...] EST Telemedicine [facility] Neurology [address] [place], [place] [phone] Alessandra Deal, DEB 15 [facility], 2nd [place] [address] Health Maintenance Due Date Last Done Comments Adult Td,Tdap Booster 1988 CREATININE LEVEL 1988 DEPRESSION SCREENING 2000 SMOKING Hx and SMOKELESS TOB ACCO SCREENING 2001 HEPATITIS C SCREENING 2006 HIV ONE-TIME SCREENING (18-6 5 YEARS) 2006 PAP SMEAR 2009 COVID-19 VACCINE (2024-2 6 season) 2025 INFLUENZA VACCINE Completed 08/13/2025 HEPATITIS A VACCINES Aged Out No long [...] topic Medical Devices Not on file Insurance [employer]UE [employer] BENEFITS ADMINISTRATORS [employer] BENEFITS ADMINISTRATORS [employer] BENEFITS ADMINISTRATORS [employer] BENEFITS ADMINISTRATORS [employer] ADMINISTRATORS [employer] ADMINISTRATORS Care Teams Psychiatric Aide Instructor Relationship Specialty Start Date End Date Maciej Curran PA [address] [place] [address] PCP - General Physician Brazer Helper Induction 05/07/24 Additional Source Comments The information contained in this document represents components of the legal health record. It is not the complete legal health record.[facility]
--- OUTSIDE RECORDS SUMMARY | 2025-09-15 11:45 | XMS_ITS | Encounter Summary ---
Author Organization [facility] Address [address] [place] [address] Phone Care Team Providers Care Environmental Compliance Officer Name Role Phone Maciej Curran Primary Care Provider + Encounter Details Date Type Department Care Team (Late st Contact Info) Description 12/04/2024 Telephone [facility] Gyne[facility] Resident [address] [place], [place] [phone] Amy Oleary [place], [place] [address] [place] [address] [email or web address] Social History Tobacco Use Types [...] Info) Description 09/22/2025 3:30 PM EST Telemedicine [facility] Neurology [address] [place] [address] Alessandra Deal FNP 15 [facility], 2nd [place] [address] [email or web address] documented as of this encounter Visit Diagnoses Not on filedocumented in this encounter Care Teams Environmental Compliance Officer Relationship Specialty Start Date End Date Maciej Curran PA [address] [place] [address] PCP - General Physician Criminal Defense Attorney 05/07/24 documented as of this encounter Additional Source Comments The information contained in this document represents components of the legal health record. It is not the complete legal health record.[facility]
--- OUTSIDE RECORDS SUMMARY | 2025-09-15 11:46 | XMS_ITS | Clinical Summary ---
Author Organization [facility] Address [address] [place] [address] Care Team Providers Care Steamer Tender Name Role Phone Maciej Curran Primary Care Provider [phone] Allergies Active Allergy Reactions Criticality Noted Date [...] schedule II opioid drug. 02/22/20 23 Active txvyjtnrlkmo-Tw-vu on-minerals tablet Take by mouth. Active NIFEdipine [...] tablet Take by mouth. Activ e rizatriptan CUSTOMER OPERATIONS INTERN (MAXALT-CUSTOMER OPERATIONS INTERN) 10 mg disintegrating tablet Take 10 mg [...] PM EDT Scheduled Telephone Visit [facility] Department of Obstetrics and Gynecology [address] [place] [address] Sarah Hamilton MD Endometriosis (Primary Dx) from [...] - 19+ 3-dose series) 2007 Pneumococcal Vaccine: At-Risk and Pediatric Patients (0 to 49 Years) (1 of 2 - [...] ANTHEM - OUT OF STATE Care Teams Steamer Tender Relationship Specialty Start Date End Date Maciej Curran PA [address] [place] [address] PCP - General Primary Care 12/26/24
== END 2025-09-15 09:54 | disposition home or self-care (01) ==
LOC: HO.US 09:53
PROVIDERS: PCP Physician Assistant; Visit Provider Surgery
DX: M79.661 Pain in right lower leg (principal); M79.662 Pain in left lower leg; Z98.84 Bariatric surgery status
CPT/HCPCS: 93970

== ENCOUNTER → 2025-09-15 09:55 | Outpatient (BNV) | payer OTHER, SELFPAY | PROVIDERS: PCP Physician Assistant; Visit Provider Radiology Diagnostic Radiology | DX: M79.604 Pain in right leg (principal); M79.605 Pain in left leg | CPT/HCPCS: 93970 ==

== ENCOUNTER 2025-09-17 10:48 | Outpatient (AMB) | payer OTHER, SELFPAY ==
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
[2025-09-17 11:01] VITALS: BP 94/56; PULSE 85; TEMP 36.4; O2SAT 97; BMI 47.5
== END 2025-09-17 12:17 | disposition home or self-care (01) ==
LOC: HO.HBS 10:49
PROVIDERS: PCP Physician Assistant; Visit Provider Nurse Practitioner
DX: Z90.3 Acquired absence of stomach [part of] (principal); Z98.84 Bariatric surgery status
CPT/HCPCS: 99024

== ENCOUNTER 2025-09-26 14:10 | Outpatient (AMB) | payer OTHER, SELFPAY ==
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
--- OUTSIDE RECORDS SUMMARY | 2025-09-26 18:21 | XMS_ITS | Clinical Summary ---
Author Organization [facility] Address [address] [place] [address] Care Team Providers Care Picture Booker Name Role Phone Maciej Curran Primary Care [...] schedule II opioid drug. 02/22/20 23 Active ivkebpkaemkx-Bg-lp on-minerals tablet Take by mouth. Active NIFEdipine [...] tablet Take by mouth. Activ e rizatriptan PROCESSING ANALYST (MAXALT-PROCESSING ANALYST) 10 mg disintegrating tablet Take 10 [...] 07/01/2025 2:30 PM EDT Scheduled Telephone Visit [facility] Department of Obstetrics and Gynecology [address] [place] [address] Sarah Hamilton MD Endometriosis (Primary Dx) from [...] Upcoming Encounters Date Type Department Care Team ([facility] Contact Info) Description 11/25/2025 10:30 AM EST Office Visit [facility] Department of Obstetrics and Gynecology [address] [place] [address] Sarah Hamilton MD [address]-OBSTETRICS/[place] [address] Health Maintenance Due Date Last Done Comments [...] - 2024- season) 2025 10/21/2021, 11/04/2020, 10/14/2020 DTaP,Tdap,and Td [...] ANTHEM - OUT OF STATE Care Teams Picture Booker Relationship Specialty Start Date End Date Maciej Curran PA [address] [place] [address] [phone] PCP - General Primary Care 12/26/24
--- OUTSIDE RECORDS SUMMARY | 2025-09-26 18:21 | XMS_ITS | Encounter Summary ---
Author Organization [facility] Address [address] [place] [address] Phone Care Team Providers Care Payroll Benefits Clerk Name Role Phone Maciej Curran Primary Care Provider + Encounter Details Date Type Department Care Team (Late st Contact Info) Description 12/04/2024 Telephone [facility] OBGYN Gynecology Resident [address] [place], [place] [phone] Amy Oleary [place], [place] [address] [place] [address] [email or web address] Social History Tobacco Use Types [...] Care Team (Late st Contact Info) Description 09/29/2025 2:00 PM EST Telemedicine [facility] Neurology [address] [place] [address] Alessandra Deal FNP 15 [facility], 2nd [place] [address] [email or web address] documented as of this encounter Visit Diagnoses Not on filedocumented in this encounter Care Teams Payroll Benefits Clerk Relationship Specialty Start Date End Date Maciej Curran PA [address] [place] [address] PCP - General Physician Hand Heel Seat Fitter 05/07/24 documented as of this encounter Additional Source Comments The information contained in this document represents components of the legal health record. It is not the complete legal health record.[facility]
--- OUTSIDE RECORDS SUMMARY | 2025-09-26 18:21 | XMS_ITS | Clinical Summary ---
Author Organization [facility] Address [address] [place] [address] Phone Care Team Providers Care Fabrication Supervisor Name Role Phone Maciej Curran Primary [...] ,Shortness Of Breath,Tinnitus High 01/21/2022 Medications rizatriptan (MAXALT-SNACK BAR COOK) 10 MG disintegrating tabletIndications: Intractable migraine with [...] 60 MG 24 hr tablet Acti ve qxmdeeqhkfur-Nl-tk on-minerals Tab Take by mouth. Active metFORMIN [...] mouth daily. 90 capsule 3 06/26/20 Active Social History Tobacco Use Types Packs/Day Years [...] Info) Description 09/29/2025 2:00 PM EST Telemedicine [facility] Neurology [address] [place] [address] Alessandra Deal, DEB 15 [facility], 2nd [place] [address] [email or web address] Health Maintenance Due Date Last Done Comments [...] topic Medical Devices Not on file Insurance [facility] [employer] BENEFITS ADMINISTRATORS [place] [employer] [place] [employer]AT[employer]MIN[employer]MINISTRAT[employer] Care Teams Fabrication Supervisor Relationship Specialty Start Date End Date Maciej Curran PA [address] [place] [address] PCP - General Physician Assistant Professor Of Marine Biology 05/07/24 Additional Source Comments The information contained in this document represents components of the legal health record. It is not the complete legal health record.[facility]
== END 2025-09-26 15:26 | disposition home or self-care (01) ==
LOC: HO.HBST 14:10
PROVIDERS: PCP Physician Assistant; Visit Provider Counselor Mental Health
DX: F41.9 Anxiety disorder, unspecified (principal); F43.9 Reaction to severe stress, unspecified; Z98.84 Bariatric surgery status
CPT/HCPCS: 90834

== ENCOUNTER 2025-10-04 19:39 | Emergency (ER) | payer OTHER, SELFPAY ==
--- OUTSIDE RECORDS SUMMARY | 2025-09-29 14:00 | XMS_ITS | Encounter Summary ---
Author Organization [facility] Address [address] [place] [id number] Phone Care Team Providers Care Inclusion Internship Name Role Phone Maciej Curran Primary Care Provider + Encounter Details Date Type Department Care Team (Late st Contact Info) Description 09/29/2025 2:00 PM EST Telemedicine [facility] Neurology [address] [place] [address] Alessandra Deal, PRODUCTION SUPERVISOR TRAINEE [address] [facility], [address]nd [place] [address] [email or web address] Intractable migraine with aura without status migrainosus [...] this encounter Progress Notes * Alessandra Deal, PRODUCTION SUPERVISOR TRAINEE - 09/29/2025 2:00 PM EST Date of Visit: 09/29/2025 Reason for Visit (Chief Complaint): _ HPI: 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 At our last appointment (06/16/2025) pt was to increase propranolol to 120mg daily. She was to continue Qulipta. She could continue either rizatriptan or intranasal zolmitriptan as needed. Pt underwent a gastric bypass on 09/09/2025. She stopped her propranolol since this as her blood pressure has been in the low 100s/60s. She continues with Qulipta and feels this is working. She did need to use the rizatriptan last week and her headache resolved after she took the medication and napped. She reports an increase in headache frequency. She has been eating less and has only been allowed small sips of liquids following her surgery which she think may be causing an increase in her headache. She had been doing very well prior to her surgery. She reports than anesthesia and opioids are triggers for migraine and she had both. She has noticed more endometriosis pain as she had to stopthe Orilissa. She hasn't gotten any light blocking or tinted glasses as she recently moved offices.She now has a filter for her screen which seems to be helping. She reports massage has been helpfulin the past. She is taking magnesium and riboflavin. Initial HPI (12/02/2024): Carol is a 34yo [...] working well but insurance required swap to [employer] circa summer 2023 but this causes some [...] mg capsule Take by mouth. Unknown (patient-reported) elagolix (ORILISSA) 150 mg Tab Take 150 mg by mouth. (Patient not taking: Reported on 06/16/2025) Unknown (patient-reported) levonorgestreL (MIRENA) 21 mcg/24hr (up to 8 yrs) 52 mg intrauterine device 1 Intra Uterine Device by Intrauterine route. Unknown (patient-reported) metFORMIN (GLUCOPHAGE) 500 MG tablet Unknown (patient-reported) kstdljihtjxb-Oy-ovwv-minerals Tab Take by mouth. Unknown (patient-reported) NIFEdipine (PROCARDIA XL) 60 MG 24 hr tablet Unknown (patient-reported) omeprazole (PRILOSEC) 20 MG capsule Take 20 mg by mouth. Unknown (patient-reported) ondansetron (ZOFRAN) 4 MG tablet Take by mouth every 8 (eight) hours as needed. Unknown (patient-reported) propranoloL (INDERAL LA) 120 mg 24 hr capsule Take 1 capsule (120 mg total) by mouth daily. 90 capsule 3 Unknown (outside pharmacy) QULIPTA 60 mg tablet TAKE 1 TABLET (60 MG TOTAL) BY MOUTH DAILY. 30 tablet 11 Unknown (outside pharmacy) riboflavin, vitamin B2, 400 mg Tab Take by mouth. Unknown (patient-reported) rizatriptan (MAXALT-ENVIRONMENTAL SYSTEMS COORDINATOR) 10 MG disintegrating tablet Take 1 tablet (10 mg total) by mouth as neededfor migraine. May repeat in 2 hours if needed 9 tablet 11 Unknown (outside pharmacy) zinc citrate, zinc oxide 50 mg Tab Take by mouth. Unknown (patient-reported) ZOLMitriptan (ZOMIG) 5 mg nasal solution 1 spray by Nasal route as needed for migraine. 6 each 11 Unknown (outside pharmacy) No current facility-administered medications for this visit. [...] cousins did well with Botox. SocHx: Pt live with her and her 2 year old son (Florin). No IPV. 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 She has two alcoholic drinks a month at the most. Edibles have helped with endometriosis pain the past, but she has not used these recently. She denies tobacco and illicit drug use. No SI. ROS: Pertinent positive ROS are listed in the HPI. All others are negative. Physical Exam: Vitals: Virtual visit Gen: AAOx3, calm, NAD Neuro: MS: AAOx3, appropriately conversational. Speech is clear/fluent. 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 She recently underwent a gastric bypass surgery and has stopped propranolol due to hypotension. Prior to her August surgery, her migraines were under better control with propranolol, Qulipta, and either rizatriptan or intranasal zolmitriptan as needed. Our headache plan will be as follows: [...] oral rescue agent like Nurtec or Ubrelvy. -Pt has discontinued propranolol due to hypotension -Continue magnesium and riboflavin supplements. -Consider starting CoQ-10 -Encouraged blue light blocking glasses and tinted glasses for migraine -Consider acupuncture and/or massage -Pt may be good candidate for Botox in the future. Lifestyle: We discussed headache prevention strategies such as consistent and adequate sleep, proper hydration, not skipping meals, low caffeine intake and stress reduction. As pt is recently post-op and has made some changes to her medications, we will have a follow-up inabout 3 months. Sooner as needed I personally spent 32 minutes today preparing for the patient, coordinating care, reviewing the record, and documenting in the record. I have maintained a long-term, longitudinal relationship with this patient, overseeing care of chronic conditions, including migraine. This care relationship has significantly influenced my decision making and treatment plans during today's encounter. documented in this encounter Plan of Treatment Not on file documented as of this encounter Visit Diagnoses Diagnosis Intractable migraine with aura without status migrainosus- Primary Chronic daily headache Headache documented in this encounter Care Teams Inclusion Internship Relationship Specialty Start Date End Date Maciej Curran PA [address] [place] [address] PCP - General Physician Medical Terminologist 05/07/24 documented as of this encounter Additional Source Comments The information contained in this document represents components of the legal health record. It is not the complete legal health record.[facility]
--- NOTE | ~2025-10-04 | XR_ITS ---
CLINICAL HISTORY: epigastric pain CHEST X-RAY FRONTAL VIEW COMPARISON: None provided. FINDINGS: A single frontal view of the chest was performed. The cardiac size and mediastinal silhouette are within normal limits. The lungs are clear. There are no acute infiltrates or pleural effusions. There is no pneumothorax. Surgical clips are noted in the abdomen. IMPRESSION: 1. No acute disease. This document has been electronically signed by: Roc Tian M.D. on 10/04/2025 21:03:29
--- NOTE | ~2025-10-04 | CT_ITS ---
CLINICAL HISTORY: hx gastric sleeve, emesis pain CT abdomen and pelvis with contrast Comparison: US/ND/SR - US ABDOMEN COMPLETE WITH LIVER ELASTOGRAPHY - 08/11/25 08:[address]/SR - CT PELVIS W IV CON - 10/31/24 08:27 EST Findings: The lung bases are clear. Splenomegaly 13.5 cm. Not seen on the comparison ultrasound. Mid splenic hypodensity 1.5 cm, indeterminate on image 20:3. Cholecystectomy. Abdominal solid organs otherwise unremarkable. No urolithiasis. No bowel obstruction, pneumoperitoneum, or pneumatosis. Gastric sleeve. Mesenteric vessels are patent. Moderate stool. IUD transversely oriented in the uterus. Uterus and ovaries otherwise unremarkable. Normal appendix. No ascites. The bones are intact. IMPRESSION: 1. IUD is transversely oriented within the uterine fundus with the main body imbedded in the left myometrium. No perforation. 2. Gastric sleeve. No apparent complications. No bowel obstruction. 3. Indeterminate hypodensity within the mid spleen. This could be a small cyst or hemangioma. Consider nonemergent dedicated ultrasound. This document has been electronically signed by: Ankita Hogan MD on 10/05/2025 03:51:01
[2025-10-04 19:42] VITALS: BP 135/65; PULSE 75; RESP 16; TEMP 36.6; O2SAT 95; BMI 46.5
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
[2025-10-04 20:03] LABS: Hematocrit 38.6 % (37.0-47.0); Hemoglobin 12.6 g/dl (12.0-16.0); Mean Corpuscular HGB Conc 32.6 g/dl (31.0-35.0); Mean Corpuscular Hemoglobin 25.7 pg (27.0-33.0); Mean Corpuscular Volume 78.6 fL (80.0-98.0); NRBC Abs Auto 0.000 X10*3/uL (0.0-0.012); NRBC Pct Auto 0.0 /100WBC (0.0-0.2); Platelet Count 339 X10*3/uL (160-400); Red Blood Count 4.91 X10*6/uL (4.20-5.50); White Blood Count 5.1 X10*3/uL (4.8-10.8)
[2025-10-04 20:28] LABS: Alanine Aminotransferase 101 U/L (0-31); Albumin Level 4.6 g/dL (3.5-5.0); Alkaline Phosphatase 79 U/L (39-117); Anion Gap 14 (12-20); Aspartate Amino Transferase 43 U/L (5-31); Blood Urea Nitrogen 14 mg/dL (9-16); Calcium 9.4 mg/dL (8.4-10.2); Carbon Dioxide 21 mmol/L (22-29); Chloride 109 mmol/L (96-108); Creatinine Clr Calc Pharmacy 124.2; Estimated Glomerular Filt Rate > 60; Lipase 78 U/L (8-78); Magnesium 1.9 mg/dL (1.6-2.6); Potassium 3.3 mmol/L (3.3-5.1); Sodium 141 mmol/L (135-145); Total Protein 7.3 g/dL (6.5-8.0)
[2025-10-04 20:38] LABS: Atypical Lymph Absolute Manual 0.1 x10*3/uL; Atypical Lymphs Percent Manual 2 % (0-6); Basophils Abs Manual 0.2 X10*3/uL (0.0-0.2); Basophils Percent Manual 3 % (0-2); Lymphocytes Absolute Manual 3.2 X10*3/uL (1.2-4.9); Lymphocytes Percent Manual 62 % (20-40); Monocytes Absolute Manual 0.3 X10*3/uL (0.1-1.2); Monocytes Percent Manual 5 % (2-11); Neutrophils Percent Manual 28 % (45-73)
[2025-10-04 20:39] LABS: Band Neutrophils Percent 0 % (3-5); Neutrophils Absolute Manual 1.4 X10*3/uL (2.0-8.3)
[2025-10-04 20:40] LABS: Microcytosis 1+ (5-14) /OIF; RBC Morphology NOTED; Resp Syncy Virus RNA Qual PCR NEGATIVE (Negative); SARS COV2 PCR INHOUSE NEGATIVE (Negative)
[2025-10-04 22:00] VITALS: BP 133/68; PULSE 67; TEMP 35.9; O2SAT 99
--- OUTSIDE RECORDS SUMMARY | 2025-10-04 22:14 | XMS_ITS | Clinical Summary ---
Author Organization [facility] Address [address] [place] [address] Care Team Providers Care Outpatient Clerk Name Role Phone Maciej Curran Primary [...] schedule II opioid drug. 02/22/20 23 Active bqlivyhcppps-Kw-qk on-minerals tablet Take by mouth. Active NIFEdipine [...] tablet Take by mouth. Activ e rizatriptan GLASS FITTER (MAXALT-GLASS FITTER) 10 mg disintegrating tablet Take 10 mg [...] Problems Problem Noted Date Diagnosed Date Endometriosis Family History Medical History Relation Comments Hyperlipidemia [...] Upcoming Encounters Date Type Department Care Team ([facility] st Contact Info) Description 11/25/2025 10:30 AM EST Office Visit [facility] Department of Obstetrics and Gynecology [address] [place] [address] Sarah Hamilton MD [facility]-OBSTETRICS/[place] [address] Health Maintenance Due Date Last Done Comments [...] ANTHEM - OUT OF STATE Care Teams Outpatient Clerk Relationship Specialty Start Date End Date Maciej Curran PA [address] [place] [id number] PCP - General Primary Care 12/26/24
--- OUTSIDE RECORDS SUMMARY | 2025-10-04 22:14 | XMS_ITS | Clinical Summary ---
Author Organization [facility] Address [address] [place] [address] Phone Care Team Providers Care Cooler Room Worker Name Role Phone Maciej Curran Primary [...] ,Shortness Of Breath,Tinnitus High 01/21/2022 Medications rizatriptan (MAXALT-PRODUCTION REPAIRER) 10 MG disintegrating tabletIndications :Intractable migraine with aura without status migrainosus Take 1 tablet (10 mg total) by mouth as needed for migraine. May repeat in 2 hours if needed 9 tablet 11 025 Active ZOLMitriptan (ZOMIG) 5 mg nasal solutionIndicatio ns:Intractable migraine with aura with status migrainosus 1 spray by Nasal route as needed for migraine. 6 each 11 025 Active QULIPTA 60 mg tabletIndications :Intractable migraine with aura without status migrainosus TAKE 1 TABLET (60 MG TOTAL) BY MOUTH DAILY. 30 tablet 11 025 Active zinc citrate, zinc oxide 50 mg Tab Take by mouth. Activ e riboflavin, vitamin B2, 400 mg Tab Take by mouth. Activ e ondansetron (ZOFRAN) 4 MG tablet Take by mouth every 8 (eight) hours as needed. Active NIFEdipine (PROCARDIA XL) 60 MG 24 hr tablet Acti ve udmbutetxjau-Om-s rmeigio-minerals Tab Take by mouth. Active levonorgestreL (MIRENA) 21 mcg/24hr (up to 8 yrs) 52 mg intrauterine device 1 Intra Uterine Device by Intrauterine route. Active elagolix (ORILISSA) 150 mg Tab Take 150 mg by mouth. 025 Active cetirizine (ZYRTEC) 10 mg capsule Take by mouth. Activ e propranoloL (INDERAL LA) 120 mg 24 hr capsuleIndication s:Intractable migraine with aura without status migrainosus Take 1 capsule (120 mg total) by mouth daily. 90 capsule 3 025 Active omeprazole (PRILOSEC) 20 MG capsule Take 20 mg by mouth. 2024 Discontinued metFORMIN (GLUCOPHAGE) 500 MG tablet 025 2024 Discontinued Encounters Date Type Department Care Team Description 09/29/2025 2:00 PM EST Telemedicine [facility] Neurology [address] [place] [address] Alessandra Deal FNP Intractable migraine with [...] 2023 8:58 AM EDT Plan of Treatment Health Maintenance Due Date Last Done Comments Adult Td,Tdap Booster 1988 DEPRESSION SCREENING 2000 SMOKING Hx and [...] topic Medical Devices Not on file Insurance [place] [employer] BENEFITS ADMINISTRATORS [place] [employer] ADMINISTRATORS [place] GetSet ADMINISTRATORS [employer] ADMINISTR[place] [address] [place] [address] GetSet ADMINISTRATORS [employer] ADMINISTRATORS Care Teams Cooler Room Worker Relationship Specialty Start Date End Date Maciej Curran PA [address] [place] [address] PCP - General Physician Fagot Heater 05/07/24 Additional Source Comments The information contained in this document represents components of the legal health record. It is not the complete legal health record.[facility]
--- OUTSIDE RECORDS SUMMARY | 2025-10-04 22:14 | XMS_ITS | Encounter Summary ---
Author Organization [facility] Address [address] [place] [address] Phone Care Team Providers Care Trademark Paralegal Name Role Phone Maciej Curran Primary Care Provider + Encounter Details Date Type Department Care Team (Late st Contact Info) Description 12/04/2024 Telephone [facility] OBGYN Gynecology Resident [address] [place], [place] [phone] Amy Oleary [place], [place] [address] [place] [address] [email or web address] Social History Tobacco Use Types Packs/Day Years [...] on filedocumented in this encounter Care Teams Trademark Paralegal Relationship Specialty Start Date End Date Maciej Curran PA [address] [place] [address] PCP - General Physician Veterans Services Specialist 05/07/24 documented as of this encounter Additional Source Comments The information contained in this document represents components of the legal health record. It is not the complete legal health record.[facility]
[2025-10-05] MEDS: Lactated Ringers 1,000 ML 999 ML IV (00:14)
[2025-10-05 03:25] VITALS: BP 114/42; PULSE 64; RESP 16; TEMP 36.5; O2SAT 97
[2025-10-05 04:30] VITALS: BP 114/42; PULSE 64; RESP 16; TEMP 36.5; O2SAT 97
== END 2025-10-05 04:30 | disposition home or self-care (01) ==
PROVIDERS: Physician Assistant Medical; Emergency Provider Emergency Medicine; PCP Physician Assistant
DX: R10.13 Epigastric pain (principal); K59.00 Constipation, unspecified; Z90.3 Acquired absence of stomach [part of]; Z79.899 Other long term (current) drug therapy
CPT/HCPCS: 71045; 74177; 80053; 83690; 83735; 84702; 85007; 85027; 85652; 86141; 87637; 96361; 96374; 96375; 99284; J1308; J2270; J2405; J7120

== ENCOUNTER → 2025-10-04 19:46 | Outpatient (BNV) | payer OTHER, SELFPAY | PROVIDERS: PCP Physician Assistant; Visit Provider Radiology Diagnostic Radiology | DX: R10.13 Epigastric pain (principal) | CPT/HCPCS: 71045 ==

== ENCOUNTER → 2025-10-05 02:30 | Outpatient (BNV) | payer OTHER, SELFPAY | PROVIDERS: Emergency Provider Emergency Medicine; PCP Physician Assistant; Visit Provider Radiology Diagnostic Radiology | DX: R11.11 Vomiting without nausea (principal); R10.9 Unspecified abdominal pain; Z98.84 Bariatric surgery status | CPT/HCPCS: 74177 ==

== ENCOUNTER 2025-10-08 08:31 | Outpatient (REF) | payer OTHER, SELFPAY ==
[2025-10-08 08:45] LABS: MANUAL DIFF FLAG NO
--- OUTSIDE RECORDS SUMMARY | 2025-10-08 08:48 | XMS_ITS | Encounter Summary ---
Author Organization [facility] Address [address] [address] Phone Care Team Providers Care Rehabilitation Tech Name Role Phone Maciej Curran Primary Care Provider + Encounter Details Date Type Department Care Team (Late st Contact Info) Description 12/04/2024 Telephone [facility] [address] [place] [address] [phone] Amy Oleary [place], [place] [address] [place] [address] [email or web address] Social History Tobacco Use Types Packs/Day [...] on filedocumented in this encounter Care Teams Rehabilitation Tech Relationship Specialty Start Date End Date Maciej Curran PA [facility] [place] [address] PCP - General Physician Waste Water Treatment Plant Operator 05/07/24 documented as of this encounter Additional Source Comments The information contained in this document represents components of the legal health record. It is not the complete legal health record.[facility]
--- OUTSIDE RECORDS SUMMARY | 2025-10-08 08:48 | XMS_ITS | Clinical Summary ---
Author Organization [facility] Address [address] [place] [address] Phone Care Team Providers Care Bilingual Receptionist Name Role Phone Maciej Curran Primary [...] ,Shortness Of Breath,Tinnitus High 01/21/2022 Medications rizatriptan (MAXALT-PLANETARIUM SKY SHOW TECHNICIAN) 10 MG disintegrating tabletIndications :Intractable migraine with [...] 60 MG 24 hr tablet Acti ve aznxtukayvbj-Rl-u remigio-minerals Tab Take by mouth. Active levonorgestreL (MIRENA) [...] Team Description 09/29/2025 2:00 PM EST Telemedicine [facility] Neurology Clinic [address] [place] [address] Alessandra Deal FNP Intractable migraine with [...] topic Medical Devices Not on file Insurance [employer] BENEFITS ADMINISTRATORS [employer] ADMINISTRATORS [employer] [employer] ADMINISTRATORS [employer] BENEFITS [place] [address] [place] [address] [employer] ADMINISTRATORS [employer] ADMINISTRATORS Care Teams Bilingual Receptionist Relationship Specialty Start Date End Date Maciej Curran PA [address] [place] [address] PCP - General Physician Dental Instrument Maker 05/07/24 Additional Source Comments The information contained in this document represents components of the legal health record. It is not the complete legal health record.[facility]
--- OUTSIDE RECORDS SUMMARY | 2025-10-08 08:48 | XMS_ITS | Clinical Summary ---
Author Organization [facility] Address [address] [place] [address] Care Team Providers Care Assembling Inspector Name Role Phone Maciej Curran Primary [...] schedule II opioid drug. 02/22/20 23 Active joehokswwehf-Pq-zk on-minerals tablet Take by mouth. Active NIFEdipine [...] Take by mouth. Activ e rizatriptan MEDICAL LEADER (MAXALT-MEDICAL LEADER) 10 mg disintegrating tablet Take 10 mg [...] Upcoming Encounters Date Type Department Care Team ([facility] st Contact Info) Description 11/25/2025 10:30 AM EST Office Visit [facility] Department of Obstetrics and Gynecology [address] [place] [address] Sarah Hamilton MD [facility]-OBSTETRICS/[place] [address] Health Maintenance Due Date Last Done Comments [...] ANTHEM - OUT OF STATE Care Teams Assembling Inspector Relationship Specialty Start Date End Date Maciej Curran PA [address] [place] [id number] PCP - General Primary Care 12/26/24
[2025-10-08 08:50] LABS: Hematocrit 40.5 % (37.0-47.0); Hemoglobin 12.9 g/dl (12.0-16.0); Imm Gran Abs Auto 0.00 X10*3/uL (0.00-0.03); Imm Gran Pct Auto 0.0 % (0.0-0.4); Lymphocytes Absolute Auto 2.0 X10*3/uL (1.2-4.9); Mean Corpuscular HGB Conc 31.9 g/dl (31.0-35.0); Mean Corpuscular Hemoglobin 25.7 pg (27.0-33.0); Mean Corpuscular Volume 80.7 fL (80.0-98.0); NRBC Abs Auto 0.000 X10*3/uL (0.0-0.012); NRBC Pct Auto 0.0 /100WBC (0.0-0.2); Platelet Count 359 X10*3/uL (160-400); Red Blood Count 5.02 X10*6/uL (4.20-5.50); Reticulocytes Absolute 0.055 X10*6/uL (0.026-0.095); White Blood Count 4.9 X10*3/uL (4.8-10.8)
[2025-10-08 09:51] LABS: Anion Gap 14 (12-20); Blood Urea Nitrogen 12 mg/dL (9-16); Calcium 9.5 mg/dL (8.4-10.2); Carbon Dioxide 24 mmol/L (22-29); Chloride 108 mmol/L (96-108); Cholesterol 142 mg/dL (<200); Estimated Glomerular Filt Rate > 60; HDL Cholesterol 28 mg/dL (>40); Potassium 3.8 mmol/L (3.3-5.1); Sodium 142 mmol/L (135-145); Triglycerides 102 mg/dL (<150)
[2025-10-08 09:56] LABS: HBS Num1 153.00 mIU/mL (0-7.99); HBc Num1 0.07 S/CO (0.00-0.79); Hepatitis A Antibody IgM 0.29 Index (0-0.79); ~HepC Num1 0.08 S/CO (0.00-0.79); ~Hepatitis A Antibody IgM Nonreactive (Nonreactive); ~Hepatitis B Surface Antibody REACTIVE (Nonreactive); ~Hepatitis C Antibody Nonreactive (Nonreactive)
[2025-10-09 13:17] LABS: HBsAGNum1 0.25 S/CO (0.00-0.99); Hepatitis B Surface Antigen Negative (Negative)
== END 2025-10-08 08:32 | disposition home or self-care (01) ==
LOC: HO.LAB 08:31
PROVIDERS: PCP Physician Assistant; Visit Provider Internal Medicine
DX: Z01.84 Encounter for antibody response examination (principal); R79.89 Other specified abnormal findings of blood chemistry; R16.1 Splenomegaly, not elsewhere classified
CPT/HCPCS: 80048; 80061; 83010; 83615; 85025; 85045; 86308; 86704; 86706; 86709; 86803; 87340

== ENCOUNTER 2025-10-10 14:09 | Outpatient (REF) | payer OTHER, SELFPAY ==
--- OUTSIDE RECORDS SUMMARY | 2025-10-10 15:42 | XMS_ITS | Clinical Summary ---
Author Organization [facility] Address [address] [place] [address] Care Team Providers Care Cocoa Mill Operator Name Role Phone Maciej Curran Primary Care Provider [phone] Allergies Active Allergy Reactions Criticality Noted Date [...] schedule II opioid drug. 02/22/20 23 Active yrzhubyhpwvj-Bm-vg on-minerals tablet Take by mouth. Active NIFEdipine [...] tablet Take by mouth. Activ e rizatriptan MIDDLEWARE CONSULTANT (MAXALT-MIDDLEWARE CONSULTANT) 10 mg disintegrating tablet Take 10 mg [...] ([facility] st Contact Info) Description 11/25/2025 10:30 AM EST Office Visit [facility] Department of Obstetrics and Gynecology [address] [place] [address] Sarah Hamilton MD [facility]-OBSTETRICS/[place] [address] Health Maintenance Due Date Last Done Comments [...] ANTHEM - OUT OF STATE Care Teams Cocoa Mill Operator Relationship Specialty Start Date End Date Maciej Curran PA [address] [place] [phone] PCP - General Primary Care 12/26/24
--- OUTSIDE RECORDS SUMMARY | 2025-10-10 15:42 | XMS_ITS | Clinical Summary ---
Author Organization [facility] Address [address] [place] [address] Phone Care Team Providers Care Time Motion Analyst Name Role Phone Maciej Curran Primary Care [...] ,Shortness Of Breath,Tinnitus High 01/21/2022 Medications rizatriptan (MAXALT-BRAZING MACHINE OPERATOR HELPER) 10 MG disintegrating tabletIndications :Intractable migraine with [...] 60 MG 24 hr tablet Acti ve yhhseuxdscry-Jv-r remigio-minerals Tab Take by mouth. Active levonorgestreL [...] Team Description 09/29/2025 2:00 PM EST Telemedicine [facility] Neurology Clinic [address] [place] [address] Alessandra Deal FNP Intractable migraine with [...] topic Medical Devices Not on file Insurance [employer] BENEFITS ADMINISTRATORS [employer] ADMINISTRATORS [employer] ADMINISTRATORS [employer] BENEFITS ADMINISTR[place] [address] [employer] ADMINISTRATORS [employer] ADMINISTRATORS Care Teams Time Motion Analyst Relationship Specialty Start Date End Date Maciej Curran PA [address] [place] [address] PCP - General Physician Non Ferrous Material Handler 05/07/24 Additional Source Comments The information contained in this document represents components of the legal health record. It is not the complete legal health record.[facility]
--- OUTSIDE RECORDS SUMMARY | 2025-10-10 15:42 | XMS_ITS | Encounter Summary ---
Author Organization [facility] Address [address] [address] Phone Care Team Providers Care Computer Video Game Designer Name Role Phone Maciej Curran Primary Care Provider + Encounter Details Date Type Department Care Team (Late st Contact Info) Description 12/04/2024 Telephone [facility] [address] [place] [address] [phone] Amy Oleary [place], [place] [address] [place] [address] [email or web address] Social History Tobacco Use [...] on filedocumented in this encounter Care Teams Computer Video Game Designer Relationship Specialty Start Date End Date Maciej Curran PA [facility]1 [place] [address] PCP - General Physician Etcher Enameling 05/07/24 documented as of this encounter Additional Source Comments The information contained in this document represents components of the legal health record. It is not the complete legal health record.[facility]
== END 2025-10-10 14:10 | disposition home or self-care (01) ==
LOC: HO.LAB 14:09
PROVIDERS: PCP Physician Assistant; Visit Provider Surgery
DX: R79.82 Elevated C-reactive protein (CRP) (principal)
CPT/HCPCS: 36415; 86140

== ENCOUNTER 2025-10-13 12:18 | Outpatient (AMB) | payer OTHER, SELFPAY ==
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
[2025-10-13 12:30] VITALS: BP 140/71; PULSE 93; TEMP 35.7; O2SAT 99; BMI 45.4
--- OUTSIDE RECORDS SUMMARY | 2025-10-13 15:31 | XMS_ITS | Clinical Summary ---
Author Organization [facility] Address [address] [place] [address] Phone Care Team Providers Care Life Scientist Name Role Phone Maciej Curran Primary Care [...] ,Shortness Of Breath,Tinnitus High 01/21/2022 Medications rizatriptan (MAXALT-SEPARATING MACHINE OPERATOR) 10 MG disintegrating tabletIndications :Intractable migraine with [...] 60 MG 24 hr tablet Acti ve crnfslhjxary-Dg-n remigio-minerals Tab Take by mouth. Active levonorgestreL [...] Team Description 09/29/2025 2:00 PM EST Telemedicine [facility] Neurology Clinic [address] [place] [address] Alessandra Deal FNP Intractable migraine with [...] topic Medical Devices Not on file Insurance [employer] BENEFITS ADMINISTRATORS [employer] ADMINISTRATORS [employer] ADMINISTRATORS [employer] BENEFITS ADMINISTR[place] [address] [employer] ADMINISTRATORS [employer] ADMINISTRATORS Care Teams Life Scientist Relationship Specialty Start Date End Date Maciej Curran PA [address] [place] [address] PCP - General Physician Flight Test Shop Mechanic 05/07/24 Additional Source Comments The information contained in this document represents components of the legal health record. It is not the complete legal health record.[facility]
--- OUTSIDE RECORDS SUMMARY | 2025-10-13 15:31 | XMS_ITS | Encounter Summary ---
Author Organization [facility] Address [address] [address] Phone Care Team Providers Care Metallurgical Laboratory Assistant Name Role Phone Maciej Curran Primary Care Provider + Encounter Details Date Type Department Care Team (Late st Contact Info) Description 12/04/[address] [facility] [address] [place] [address] [phone] Amy Oleary [place], [place] [address] [place] [address] [email or web address] Social History Tobacco Use Types Packs/Day Years [...] on filedocumented in this encounter Care Teams Metallurgical Laboratory Assistant Relationship Specialty Start Date End Date Maciej Curran PA [facility] [place] [address] PCP - General Physician Radiological Health Specialist 05/07/24 documented as of this encounter Additional Source Comments The information contained in this document represents components of the legal health record. It is not the complete legal health record.[facility]
--- OUTSIDE RECORDS SUMMARY | 2025-10-13 15:31 | XMS_ITS | Clinical Summary ---
Author Organization [facility] Address [address] [place] [id number] Care Team Providers Care Mophead Sewer Name Role Phone Maciej Curran Primary Care [...] schedule II opioid drug. 02/22/20 23 Active zoybykjebyen-Nz-tn on-minerals tablet Take by mouth. Active NIFEdipine [...] tablet Take by mouth. Activ e rizatriptan MANAGING CONSULTANT (MAXALT-MANAGING CONSULTANT) 10 mg disintegrating tablet Take 10 [...] Upcoming Encounters Date Type Department Care Team ([facility] st Contact Info) Description 11/25/2025 10:30 AM EST Office Visit [facility] Department of Obstetrics and Gynecology [address] [place] [address] Sarah Hamilton MD [facility]-OBSTETRICS/[place] [address] Health Maintenance Due Date Last Done Comments [...] ANTHEM - OUT OF STATE Care Teams Mophead Sewer Relationship Specialty Start Date End Date Maciej Curran PA [address] [place] [id number] PCP - General Primary Care 12/26/24
== END 2025-10-13 13:29 | disposition home or self-care (01) ==
LOC: HO.HBS 12:19
PROVIDERS: PCP Physician Assistant; Visit Provider Nurse Practitioner
DX: E66.813 Obesity, class 3 (principal); Z68.42 Body mass index [BMI] 45.0-49.9, adult; Z90.3 Acquired absence of stomach [part of]; Z98.84 Bariatric surgery status
CPT/HCPCS: 99024